=== PATIENT | female | born 1985 | race Caucasian/White ===

== ENCOUNTER → 2018-04-12 | Outpatient (CLI) | payer OTHER ==
[~2018-04-12] MED LIST: ACHD5005 PO; FERR256T PO; FEXO-14 PO; IBP600T1 PO; LRT10T PO; NITR-65 PO; PREN-117 PO
--- NOTE | 2018-04-12 19:27 | Diagnostic Imaging Report ---
EXAMINATION: Pelvic ultrasound. INDICATION: Ovulation monitoring. FINDINGS: There are no prior studies available for comparison. Undergoing ovulation monitoring for in vitro fertilization. There are multiple follicles associated with both ovaries. There are eight follicles on the right. These measure 0.6 x 0.7 cm, 0.7 x 0.6 cm, 0.7 x 0.5 cm, 0.7 x 0.5 cm, 0.6 x 0.6 cm, 0.6 x 0.8 cm, 0.5 x 0.4 cm, and 0.6 x 0.5 cm. There are six follicles on the left. These measure 0.7 x 0.6 cm, 0.8 x 0.7 cm, 0.5 x 0.4 cm, 0.6 x 0.6 cm, 0.6 x 0.5 cm, and 0.9 x 0.7 cm. There is good blood flow to each ovary and there is no sign of torsion. The uterus is nongravid and not enlarged measuring 6.2 x 5.0 x 4.5 cm. The endometrial lining measures 10 mm. There is no focal mass involving the uterus to suggest a fibroid. Both ovaries are identified. The right ovary measures 2.4 x 1.9 x 3.8 cm while the left ovary is estimated to be 4.3 x 1.5 x 1.5 cm. There is no pelvic mass or free fluid collection evident. IMPRESSION: 1. There is no acute pelvic abnormality noted. 2. There are multiple follicles involving both ovaries as described above. Dictated by: Dictated on workstation # [id number]
== END ==
LOC: RAD 13:49
PROVIDERS: ATTEND Obstetrics & Gynecology Reproductive Endocrinology
DX: Z31.83 Encounter for assisted reproductive fertility procedure cycle (principal); N83.02 Follicular cyst of left ovary; N83.01 Follicular cyst of right ovary
CPT/HCPCS: 36415; 76830; 76856; 82670

== ENCOUNTER 2018-04-25 09:00 | Outpatient (RCR) | payer OTHER ==
--- NOTE | 2018-04-21 14:36 | Diagnostic Imaging Report ---
ADDENDUM: UPDATED PROVIDER JENNIFER HAN INDICATION: Ovulation monitoring. FINDINGS: Uterus measures 7.5 x 5.4 x 5.1 cm. Endometrium is 16 mm in thickness. There is endometrial heterogeneity. No myometrial mass is seen. Right ovary measures 3.5 x 1.8 x 1.8 cm and the left ovary measures 5.2 x 1.8 x 1.8 cm. Both ovaries contain numerous follicles. Largest follicle on the right is 1.2 x 0.5 cm. All follicles on the left are less than 1 cm with exception of a 1.0 x 1.5 cm follicle. No other adnexal mass or free fluid is seen. IMPRESSION: Multiple bilateral ovarian follicles. There is also endometrial thickening of 16 mm. Dictated by: Dictated on workstation # [id number]
--- NOTE | 2018-04-25 08:53 | Diagnostic Imaging Report ---
ADDENDUM: UPDATED ORDERING PROVIDER JENNIFER HAN MD INDICATION: Encounter for assisted reproductive fertility. FINDINGS: The uterus measures 7.7 x 5.1 x 5.9 cm. The endometrium continues to be thickened, increased since the exam from 04/21/2018. Endometrium now measures approximate 21 mm in thickness at the fundus. There is heterogeneity to the endometrium. No myometrial mass is seen. Right ovary measures 2.2 x 1.7 x 3.6 cm and the left ovary measures 5.4 x 2.4 x 2.5 cm. Numerous follicles are again noted throughout both ovaries. At least 10 follicles in the right ovary and 8 follicles in the left ovary are seen. Largest located in left ovary measuring 2.1 x 1.8 cm. There is trace free fluid present. IMPRESSION: Pelvic ultrasound, as described. Dictated by: Dictated on workstation # [id number]
== END 2018-07-20 | disposition home or self-care (01) ==
LOC: RAD 09:00
PROVIDERS: ATTEND Obstetrics & Gynecology Reproductive Endocrinology
DX: Z31.83 Encounter for assisted reproductive fertility procedure cycle (principal); R93.89 Abnormal findings on diagnostic imaging of other specified body structures
CPT/HCPCS: 36415; 76830; 82670

== ENCOUNTER 2018-06-15 08:08 | Outpatient (RCR) | payer OTHER ==
--- NOTE | 2018-05-25 14:34 | Diagnostic Imaging Report ---
CLINICAL INDICATION: Patient with encounter for reproductive fertility procedure cycle. EXAMINATION: Transvaginal ultrasound of the pelvis. COMPARISON: Ultrasound of the pelvis dated 04/25/2018. FINDINGS: The uterus has normal echogenicity and configuration. The uterus measures 7.9 cm x 5.1 cm x 5.4 cm. Uterus is retroflexed. Endometrial stripe measures 1.0 cm and has decreased compared to the prior study measured at 2.1 cm. Again seen multiple follicular cysts throughout both ovaries. There are more follicular cysts within the right ovary than the left ovary. The largest cyst in the right ovary measures 7 mm x 6 mm. The largest cyst in the left ovary measures 10 mm x 6 mm. There is no significant free fluid. IMPRESSION: 1: Interval decrease in endometrial thickening which is now 1 mm. 2: Multiple bilateral ovarian follicular cysts with the largest measuring 10 mm x 6 mm within the left ovary region. Dictated by: Dictated on workstation # [id number]
--- NOTE | 2018-06-03 10:11 | Diagnostic Imaging Report ---
PROCEDURE: US Non-ob pelvis comp/trans. TECHNIQUE: Multiple realtime grayscale images were obtained of the pelvis in various projections endovaginally. Transabdominal imaging was also performed. INDICATION: Encounter for assisted reproductive fertility. FINDINGS: The uterus measures 7.2 x 5.0 x 4.5 cm. Endometrium is 7 mm in thickness. No myometrial mass is detected. Right ovary measures 2.7 x 2.2 x 3.2 cm and the left ovary measures 4.0 x 2.3 x 2.1 cm. Numerous follicles are identified involving bilateral ovaries. Left ovary contains approximately 10 follicles ranging in size from 4-7 mm. Right ovary contains 10-14 follicles as well ranging in size from approximately 4-7 mm. There is blood flow to both ovaries. No free fluid is seen. IMPRESSION: Multiple bilateral ovarian follicles, as described. Dictated on workstation # [id number]
--- NOTE | 2018-06-03 11:09 | Diagnostic Imaging Report ---
INDICATION: Encounter for cyst reproductive fertility. Transvaginal sonography was performed. FINDINGS: The uterus measures 7.2 x 5.0 x 4.5 cm. Endometrium is 7 mm in thickness. No myometrial mass is seen. The right ovary measures 2.7 x 2.2 x 3.2 cm and the left ovary measures 4.0 x 2.3 x 2.1 cm. Both ovaries demonstrate blood flow. There are numerous follicles involving bilateral ovaries. There are approximately 10 follicles involving the left ovary ranging in size from 4-7 mm. There are 10-14 follicles involving the right ovary ranging in size from 4-7 mm. No adnexal mass or free fluid is seen. IMPRESSION: Multiple bilateral ovarian follicles, as described. Dictated by: Dictated on workstation # [id number]
--- NOTE | 2018-06-13 11:54 | Diagnostic Imaging Report ---
PROCEDURE: US Non-ob pelvis comp/trans. TECHNIQUE: Multiple realtime grayscale images were obtained of the pelvis in various projections endovaginally. Transabdominal imaging was also performed. INDICATION: Evaluate endometrial lining and follicle measurements. FINDINGS: The uterus measures 6.6 x 5.0 x 3.8 cm. The endometrium is 12 mm in thickness. No myometrial mass is seen. The right ovary measures 3.5 x 1.6 x 2.4 cm and the left ovary measures 3.5 x 1.6 x 1.4 cm. The right ovary demonstrates approximately 11 follicles. The largest follicle measures approximately 7 mm x 8 mm. The majority of the follicles are approximately 3 to 6 mm. The left ovary contains approximately 13 follicles ranging in size from 6 to 8 mm. A small amount of free fluid in the cul-de-sac is noted. IMPRESSION: Bilateral ovarian follicles, as described. Dictated by: Dictated on workstation # [id number]
--- NOTE | 2018-06-15 10:13 | Diagnostic Imaging Report ---
INDICATION: Evaluate endometrial lining thickness and ovarian follicle size. FINDINGS: Uterus measures 6.7 x 5.5 x 4.2 cm. The endometrium is 12 mm in thickness. No myometrial mass is seen. The right ovary measures 3.7 x 1.8 x 2.5 cm and the left ovary measures 5.6 x 1.6 x 1.9 cm. Numerous bilateral ovarian follicles are present. There appeared to be approximately 15 follicles involving the right ovary and 11 follicles involving the left ovary. Follicles range from approximately 5-12 mm on the right and 4-12 mm on the left. There is small amount of free fluid adjacent to the left ovary. There is blood flow to both ovaries. IMPRESSION: Multiple bilateral ovarian follicles. Trace free fluid adjacent to the left ovary is noted. Dictated by: Dictated on workstation # [id number]
== END 2018-08-23 | disposition home or self-care (01) ==
LOC: RAD 08:08
PROVIDERS: ATTEND Obstetrics & Gynecology Reproductive Endocrinology
DX: Z31.83 Encounter for assisted reproductive fertility procedure cycle (principal); N83.02 Follicular cyst of left ovary; N83.01 Follicular cyst of right ovary; R93.89 Abnormal findings on diagnostic imaging of other specified body structures
CPT/HCPCS: 36415; 76830; 76856; 82670; 84144

== ENCOUNTER 2018-07-06 08:05 | Outpatient (RCR) | payer OTHER | END 2018-10-02 | disposition home or self-care (01) | LOC: LAB 08:05 | PROVIDERS: ATTEND Obstetrics & Gynecology Reproductive Endocrinology | DX: Z31.83 Encounter for assisted reproductive fertility procedure cycle (principal) | CPT/HCPCS: 36415; 82670; 84144; 84702 ==

== ENCOUNTER → 2018-07-19 | Outpatient (CLI) | payer OTHER ==
--- NOTE | 2018-07-19 09:02 | Diagnostic Imaging Report ---
PROCEDURE: US OB SINGLE FETUS <14 WKS. INDICATION: Encounter for test. Embryo transferred on 06/21/2018 TECHNIQUE: Multiple real-time grayscale images were obtained of the gravid uterus. CORRELATION STUDY: None FINDINGS: Uterus measure partly 9.6 x 7.4 x 6.5 cm. There is present intrauterine fluid collection compatible with a gestational sac. Configuration appearing unremarkable. No abnormal perigestational fluid collections. A pole is present measuring approximately 0.97 cm for sonographic estimated age of 7 weeks 1 day. Yolk sac is present. heart rate: 130 beats per minute Imaging maternal adnexa demonstrates nonvisualization of the ovaries, obscured by bowel gas. IMPRESSION: 1. Findings consistent with early viable intrauterine , sonographic estimated age of 7 weeks 1 day. Sonographic estimated date of delivery 03/06/2019. Dictated by: Dictated on workstation # [id number]
== END ==
LOC: RAD 07:53
PROVIDERS: ATTEND Obstetrics & Gynecology Reproductive Endocrinology
DX: Z34.91 Encounter for supervision of normal pregnancy, unspecified, first trimester (principal); Z3A.08 8 weeks gestation of pregnancy
CPT/HCPCS: 36415; 76801; 82670; 84144

== ENCOUNTER → 2018-08-02 | Outpatient (CLI) | payer OTHER ==
--- NOTE | 2018-08-02 10:43 | Diagnostic Imaging Report ---
PROCEDURE: US OB SINGLE FETUS <14 WKS. TECHNIQUE: Multiple real-time grayscale images were obtained over the gravid uterus in various projections. INDICATION: Size and dates. Findings: There is a single living intrauterine . Oxbow-rump length is 2.34 cm. This correlates with gestational age of 9 weeks one day. Heart rate is 179 beats per minute and regular. There is normal volume of amniotic fluid. Placenta appears to be anterior. Neither ovary was visualized due to bowel gas. IMPRESSION: Single living intrauterine with sonographically estimated gestational age of 9 weeks one day and estimated date of confinement of March 06, 2019. Dictated by: Dictated on workstation # [id number]
== END ==
LOC: RAD 09:38
PROVIDERS: ATTEND Obstetrics & Gynecology Reproductive Endocrinology
DX: Z34.91 Encounter for supervision of normal pregnancy, unspecified, first trimester (principal); Z3A.09 9 weeks gestation of pregnancy
CPT/HCPCS: 36415; 76801; 82670; 84144

== ENCOUNTER 2018-08-15 02:16 | Observation (INO) | payer OTHER ==
[~2018-08-15] VITALS: Ht 157.5 cm; Wt 47.6 kg
--- OUTSIDE RECORDS SUMMARY | 2018-08-15 02:20 | XMS REPORT ---
Author Author Migration, Doctor Organization [facility] Address Unknown Phone Unavailable Care Team Providers Care Production Control Supervisor Name Role Phone Migration, Doctor Unavailable Unavailable PROBLEMS Type Condition ICD9-CM Code MYL63-HW Code Onset Dates Condition Status SNOMED Code Problem Unspecified breast screening V76.10 Active 988673772 Problem Screening for malignant neoplasm of the cervix V76.2 Active 383928313 Problem General counseling for initiation of other contraceptive measures V25.02 Active 792794365117887 Problem Screening examination for venereal disease V74.5 Active 651859354 Problem 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 Active 039425546 Problem state, incidental V22.2 Active 69763390 Problem Papanicolaou smear of cervix with low grade squamous intraepithelial lesion (LGSIL) 795.03 Active 612881550 Problem Pupillary abnormalities 364.75 Active 940348748 Problem Other general medical examination for administrative purposes V70.3 Active 89174028 Problem Candidiasis of vulva and vagina 112.1 Active 70816338 Problem Special screening examination, human papillomavirus [HPV] V73.81 Active 363435002 Problem Dysphagia, unspecified 787.20 Active 48902628 Problem Headache 784.0 Active 27202359 Problem Acute pharyngitis 462 Active 338161119 Problem Unspecified otalgia 388.70 Active 60441335 ALLERGIES No Information ENCOUNTERS Encounter Location Date Diagnosis [facility] [id number] [place] [address] Jan, Acute nasopharyngitis J00 [facility] [id number] [place] [address] Mar, Bronchitis J40 [facility] [id number] [place] [address] 14 Aug, 2014 [facility] [id number] [place] [address] 13 Aug, 2014 [facility] [address] [id number] [place] [address] 17 Jul, 2013 [facility] [place] [facility] [address] [id number] [place] [address] 17 Jul, 2013 [facility] [place] [facility] [address] [id number] [place] [address] 13 Jul, 2013 [facility] [place] [facility] [address] [id number] [place] [address] 13 Jul, 2013 [facility] [place] [facility] [address] [id number] [place] [address] 12 Jul, 2013 [facility] [place] [facility] [address] [id number] [place] [address] 12 Jul, 2013 [facility] [place] [facility] [address] [id number] [place] [address] 11 Jul, 2013 [facility] [place] [facility] [address] [id number] [place] [address] 11 Jul, 2013 [facility] [place] [facility] [address] [id number] [place] [address] 10 Jul, 2013 [facility] [place] [facility] [address] [id number] [place] [address] 08 Jul, 2013 [facility] [place] [facility] [address] [id number] [place] [address] Jul, [facility] [place] [facility] [address] [id number] [place] [address] 04 Jul, 2013 [facility] [place] [facility] [address] [id number] [place] [address] Jul, [facility] [place] [facility] [address] [id number] [place] [address] 18 Jun, 2013 [facility] [place] [facility] [address] [id number] [place] [address] 18 Jun, 2013 [facility] [place] [facility] [address] [id number] [place] [address] Jun, 2013 [facility] [address] [id number] [place] [address] Jun, [facility] [place] [facility] [address] [id number] [place] [address] Jun, [facility] [address] [id number] [place] [address] Nov, [facility] [place] [facility] [address] [id number] [place] [address] Nov, [facility] [address] [id number] [place] [address] Jun, [facility] [place] [facility] [address] [id number] [place] [address] Jun, [facility] [address] [id number] [place] [address] Jun, [facility] [address] [id number] [place] [address] Jun, [facility] [address] [id number] [place] [address] Jun, [facility] [address] [id number] [place] [address] May, [facility] [place] [facility] [address] [id number] [place] [address] May, [facility] [place] [facility] [address] [id number] [place] [address] May, [facility] [place] [facility] [address] [id number] [place] [address] May, [facility] [place] [facility] [address] [id number] [place] [address] May, [facility] [place] [facility] [address] [id number] [place] [address] Apr, [facility] [place] [facility] [address] [id number] [place] [address] Apr, [facility] [place] [facility] [address] [id number] [place] [address] Apr, [facility] [place] [facility] [address] [id number] [place] [address] Apr, [facility] [place] [facility] [address] [id number] [place] [address] Apr, [facility] [place] [facility] [address] [id number] [place] [address] Mar, [facility] [place] [facility] [address] [id number] [place] [address] 65[address] Mar, [facility] [place] [facility] [address] [id number] [place] [address] Oct, [facility] [place] [facility] [address] [id number] [place] [address] September, [facility] [place] [facility] [address] [id number] [place] [address] 17 Aug, 2011 [facility] [place] [facility] [address] [id number] [place] [address] 16 Aug, 2011 [facility] [place] [facility] [address] [id number] [place] [address] Aug, [facility] [place] [facility] [address] [id number], [place] [address] 11 Aug, 2011 [facility] [place] [facility] [address] [id number] [place] [address] 9[address] 10 Aug, 2011 [facility] [place] [facility] [address] [id number], [place] [address] 07 Jun, 2011 [facility] [place] [facility] [address] [id number], [place] [address] May, [facility] [place] [facility] [address] [id number], [place] [address] Apr, [facility] [address] [facility] [id number] [place] [address] Feb, IMMUNIZATIONS No Known Immunizations SOCIAL HISTORY Never Assessed REASON FOR VISIT EMR-[facility] [place] PLAN OF CARE VITAL SIGNS MEDICATIONS No Known Medications RESULTS Name Result Date Reference Range PAP SMEAR 2013-07-31 PROTOTYPE FABRICATOR CYTOLOGY REPORT FOOTNOTE PAP RESULT PROCEDURES No Known procedures INSTRUCTIONS MEDICATIONS ADMINISTERED No Known Medications MEDICAL (GENERAL) HISTORY Type Description Date Surgical History No know Surgical history
--- OUTSIDE RECORDS SUMMARY | 2018-08-15 02:21 | XMS REPORT ---
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 Active 169228631 Problem Papanicolaou smear of cervix with low grade squamous intraepithelial lesion (LGSIL) 795.03 Active 744755420 Problem state, incidental V22.2 Active 78305534 Problem Candidiasis of vulva and vagina 112.1 Active 65965220 Problem Pupillary abnormalities 364.75 Active 649707507 Problem Headache 784.0 Active 00910209 Problem Dysphagia, unspecified 787.20 Active 67307558 Problem Unspecified otalgia 388.70 Active 86761965 Problem Acute pharyngitis 462 Active 223341142 Problem Screening examination for venereal disease V74.5 Active 860822886 Problem General counseling for initiation of other contraceptive measures V25.02 Active 220863390344366 Problem Screening for malignant neoplasm of the cervix V76.2 Active 405745314 Problem Special screening examination, human papillomavirus [HPV] V73.81 Active 541360967 Problem Unspecified breast screening V76.10 Active 983861104 Problem Other general medical examination for administrative purposes V70.3 Active 09086896 ALLERGIES Substance Reaction Event Type Date Status Latex Unknown Non Drug Allergy Jan, Active ENCOUNTERS Encounter Location Date Diagnosis [facility] [address] [address] Jan, Acute nasopharyngitis J00 [facility] [id number] [address] Mar, Bronchitis J40 [facility] [address] [address] 14 Aug, 2014 [facility] [place] [facility] [address] [id number] [place] [address] 13 Aug, 2014 [facility] [place] [facility] [address] [id number] [place] [address]- [address] 17 Jul, 2013 [facility] [place] [facility] [address] [id number] [place] [address]- 244[address] 17 Jul, 2013 [facility] [place] [facility] [address] [id number] [place] [address]- 3[address] 13 Jul, 2013 [facility] [place] [facility] [address] [id number] [place] [address]- 5564 13 Jul, 2013 [facility] [place] [facility] [address] [id number] [place] [address]- 0765 12 Jul, 2013 [facility] [place] [facility] [address] [id number] [place] [address]- 0869 12 Jul, 2013 [facility] [place] [facility] [address] [id number] [place] [address]- 3144 11 Jul, 2013 [facility] [place] [facility] [address] [id number] [place] [address]- 2885 11 Jul, 2013 [facility] [place] [facility] [address] [id number] [place] [address]- 5893 10 Jul, 2013 [facility] [place] [facility] [address] [id number] [place] [address]- 69[address] 08 Jul, 2013 [facility] [place] [facility] [address] [id number] [place] [address]- 7261 07 Jul, 2013 [facility] [place] [facility] [address] [id number] [place] [address]- 9456 04 Jul, 2013 [facility] [place] [facility] [address] [id number] [place] [address]- 8372 04 Jul, 2013 [facility] [place] [facility] [address] [id number] [place] [address]- 8034 18 Jun, 2013 [facility] [place] [facility] [address] [id number] [place] [address]- 8831 18 Jun, 2013 [facility] [place] [facility] [address] [id number] [place] [address] 2546 Jun, 2013 [facility] [place] [facility] [address] [id number] [place] [address] 2546 Jun, 2013 [facility] [place] [facility] [address] [id number] [place] [address] 2546 Jun, 2013 [facility] [place] [facility] [address] [id number] [place] [address]- [address] Nov, [facility] [place] [facility] [address] [id number] [place] [address]- [address] Nov, [facility] [place] [facility] [address] [id number] [place] [address]- 0228 Jun, [facility] [place] [facility] [address] [id number] [place] [address]- [address] Jun, 2012 [facility] [place] [facility] [address] [id number] [place] [address]- 6267 Jun, [facility] [place] [facility] [address] [id number] [place] [address]- 0[address] Jun, [facility] [place] [facility] [address] [id number] [place] [address]- [address] Jun, [facility] [place] [facility] [address] [id number] [place] [address]- [address] May, [facility] [place] [facility] [address] [id number] [place] [address]- [address] May, [facility] [place] [facility] [address] [id number] [place] [address]- 39[address] May, [facility] [place] [facility] [address] [id number] [place] [address]- [address] May, [facility] [place] [facility] [address] [id number] [place] [address]- [address] May, [facility] [address] [id number] [place] [address]- [address] Apr, [facility] [place] [facility] [address] [id number] [place] [address] Apr, [facility] [address] [id number] [place] [address]- 1859 Apr, [facility] [place] [facility] [address] [id number] [place] [address]- [address] Apr, [facility] [place] [facility] [address] [id number] [place] [address] Apr, [facility] [place] [facility] [address] [id number] [place] [address]- [address] Mar, [facility] [address] [id number] [place] [address] Mar, [facility] [place] [facility] [address] [id number] [place] [address]- [address] Oct, [facility] [place] [facility] [address] [id number] [place] [address]- [address] September, [facility] [place] [facility] [address] [id number] [place] [address]- [address] 17 Aug, 2011 [facility] [place] [facility] [address] [id number] [place] [address]- 39[address] 16 Aug, 2011 [facility] [place] [facility] [address] [id number] [place] [address]- 275[address] 12 Aug, 2011 [facility] [place] [facility] [address] [id number] [place] [address]- [address] Aug, [facility] [place] [facility] [address] [id number] [place] [address]- 37[address] 10 Aug, 2011 [facility] [place] [facility] [address] [id number] [place] 07 Jun, 2011 [facility] [address] [facility] [id number] [place] [address] May, [facility] [address] [facility] [id number], [place] [address] Apr, [facility] [address] [facility] [id number], [place] [address] Feb, IMMUNIZATIONS No Known Immunizations SOCIAL HISTORY Never Assessed REASON FOR VISIT cough, congestion, headache, runny et stuffy nose. been sick for 2 weeks. [email or web address] PLAN OF CARE Activity Details Follow Up prn Reason: VITAL SIGNS Height 62 in 2018-02-10 Weight 107.4 lbs 2018-02-10 Temperature 98.0 degrees Fahrenheit 2018-02-10 Heart Rate 74 bpm 2018-02-10 Respiratory Rate 2018-02-10 BMI 19.64 kg/m2 2018-02-10 Blood pressure systolic 106 mmHg 2018-02-10 Blood pressure diastolic 72 mmHg 2018-02-10 MEDICATIONS Medication Instructions Dosage Frequency Start Date End Date Duration Status Albuterol 90 mcg/actuation 2 puffs by Inhalation route 4 times per dayPRN Mar, Active Symbicort 160 mcg-4.5 mcg/inh 2 puffs by Inhalation route 2 times per day Mar, Active Ibuprofen 200 MG Orally Three times a day 1 tablet with food or milk as needed 8h Active Cetirizine HCl 10 MG Orally Once a day 1 tablet 24h Active Claritin 10 MG Orally Once a day 1 tablet 24h Active RESULTS No Results PROCEDURES No Known procedures INSTRUCTIONS MEDICATIONS ADMINISTERED No Known Medications MEDICAL (GENERAL) HISTORY Type Description Date Surgical History No know Surgical history
--- OUTSIDE RECORDS SUMMARY | 2018-08-15 02:21 | XMS REPORT | Continuity of Care Document ---
Author Author [facility] Address Unknown Phone Unavailable Allergies Active Description Code Type Severity Reaction Onset Reported/Identified Relationship to Patient Clinical Status Yes latex [id number] Drug Allergy Unknown N/A 01/27/2007 Yes latex Drug Allergy 04/27/2012 Yes latex Drug Allergy N/A N/A 04/27/2012 Medications There is no data. Problems Date Dx Coded Attending Type Code Diagnosis Diagnosed By 12/24/2010 JOSSELYN RIVERA APRN 493.00 ASTHMA EXTRINSIC 12/24/2010 JAY MCCORMICK DO 493.00 ASTHMA EXTRINSIC 12/24/2010 493.00 ASTHMA EXTRINSIC 12/24/2010 493.00 ASTHMA EXTRINSIC 12/24/2010 DELGADO RILEY APRN 493.00 ASTHMA EXTRINSIC 12/24/2010 JAY MCCORMICK DO 493.00 ASTHMA EXTRINSIC 12/24/2010 DELGADO RILEY APRN A 493.00 ASTHMA EXTRINSIC 12/24/2010 493.00 ASTHMA EXTRINSIC 03/23/2011 JOSSELYN RIVERA APRN 461.9 ACUTE SINUSITIS UNSPECIFIED 03/23/2011 JOSSELYN RIVERA APRN V04.81 FLU DX (3 YRS AND ABOVE, IM) 03/23/2011 JAY MCCORMICK DO 461.9 ACUTE SINUSITIS UNSPECIFIED 03/23/2011 JAY MCCORMICK DO V04.81 FLU DX (3 YRS AND ABOVE, IM) 03/23/2011 461.9 ACUTE SINUSITIS UNSPECIFIED 03/23/2011 V04.81 FLU DX (3 YRS AND ABOVE, IM) 03/23/2011 461.9 ACUTE SINUSITIS UNSPECIFIED 03/23/2011 V04.81 FLU DX (3 YRS AND ABOVE, IM) 03/23/2011 DELGADO RILEY APRN 461.9 ACUTE SINUSITIS UNSPECIFIED 03/23/2011 DELGADO RILEY APRN V04.81 FLU DX (3 YRS AND ABOVE, IM) 03/23/2011 JACE JAY PRADO K 461.9 ACUTE SINUSITIS UNSPECIFIED 03/23/2011 JACE PRADOJAY K V04.81 FLU DX (3 YRS AND ABOVE, IM) 03/23/2011 ROSEMARY STRUCTURER, DELGADO A 461.9 ACUTE SINUSITIS UNSPECIFIED 03/23/2011 ROSEMARY STRUCTURER, DELGADO A V04.81 FLU DX (3 YRS AND ABOVE, IM) 03/23/2011 461.9 ACUTE SINUSITIS UNSPECIFIED 03/23/2011 V04.81 FLU DX (3 YRS AND ABOVE, IM) 05/14/2011 NICOLE STRUCTURER, JOSSELYN S V05.3 HEP B (ADULT) DX 05/14/2011 NICOLE STRUCTURER, JOSSELYN S V06.1 TDAP DX 05/14/2011 NICOLERAUL BOWENRicardo JOSSELYN S V06.4 MMR DX 05/14/2011 NICOLE BOWENN, JOSSELYN S V74.1 TB SCREENING 05/14/2011 MCCORMICK JAY PRADO K V05.3 HEP B (ADULT) DX 05/14/2011 MCCORMICK JAY PRADO K V06.1 TDAP DX 05/14/2011 MCCORMICK JAY PRADO K V06.4 MMR DX 05/14/2011 MCCORMICK JYA PRADO K V74.1 TB SCREENING 05/14/2011 V05.3 HEP B (ADULT) DX 05/14/2011 V06.1 TDAP DX 05/14/2011 V06.4 MMR DX 05/14/2011 V74.1 TB SCREENING 05/14/2011 V05.3 HEP B (ADULT) DX 05/14/2011 V06.1 TDAP DX 05/14/2011 V06.4 MMR DX 05/14/2011 V74.1 TB SCREENING 05/14/2011 ROSEMARY STRUCTURER, DELGADO A V05.3 HEP B (ADULT) DX 05/14/2011 ROSEMARY STRUCTURER, DELGADO A V06.1 TDAP DX 05/14/2011 ROSEMARY STRUCTURER, DELGADO A V06.4 MMR DX 05/14/2011 ROSEMARY STRUCTURER, DELGADO A V74.1 TB SCREENING 05/14/2011 MCCORMICK JAY PRADO K V05.3 HEP B (ADULT) DX 05/14/2011 MCCORMICK DOJAY V06.1 TDAP DX 05/14/2011 JACE PRADOJAY V06.4 MMR DX 05/14/2011 JACE PRADOJAY V74.1 TB SCREENING 05/14/2011 DELGADO RILEY APRN A V05.3 HEP B (ADULT) DX 05/14/2011 DELGADO RILEY APRN A V06.1 TDAP DX 05/14/2011 DEBORAH RILEY APRNIDI A V06.4 MMR DX 05/14/2011 DEBORAH RILEY APRNIDI A V74.1 TB SCREENING 05/14/2011 V05.3 HEP B (ADULT) DX 05/14/2011 V06.1 TDAP DX 05/14/2011 V06.4 MMR DX 05/14/2011 V74.1 TB SCREENING 06/03/2011 JOSSELYN RIVERA APRN V70.3 SPORTS PHYSICAL 06/03/2011 JAY MCCORMICK DO V70.3 SPORTS PHYSICAL 06/03/2011 V70.3 SPORTS PHYSICAL 06/03/2011 V70.3 SPORTS PHYSICAL 06/03/2011 ROSEMARY BOWENDELGADO Silva A V70.3 SPORTS PHYSICAL 06/03/2011 MCCORMICK JAY PRADO V70.3 SPORTS PHYSICAL 06/03/2011 DEBORAH RILEY APRNIDI A V70.3 SPORTS PHYSICAL 06/03/2011 V70.3 SPORTS PHYSICAL 07/07/2011 Ot 847.0 07/07/2011 Ot 847.1 07/07/2011 Ot 959.09 07/07/2011 Ot E000.8 07/07/2011 Ot E816.1 09/01/2011 JOSSELYN RIVERA APRN 787.20 DYSPHAGIA, UNSPECIFIED 09/01/2011 JAY MCCORMICK DO 787.20 DYSPHAGIA, UNSPECIFIED 09/01/2011 787.20 DYSPHAGIA, UNSPECIFIED 09/01/2011 787.20 DYSPHAGIA, UNSPECIFIED 09/01/2011 ROSEMARYDELGADO DOMINGUEZ APRN A 787.20 DYSPHAGIA, UNSPECIFIED 09/01/2011 JAY MCCORMICK DO 787.20 DYSPHAGIA, UNSPECIFIED 09/01/2011 ROSEMARYDELGADO DOMINGUEZ APRN A 787.20 DYSPHAGIA, UNSPECIFIED 09/01/2011 787.20 DYSPHAGIA, UNSPECIFIED 10/16/2011 JOSSELYN RIVERA APRN S 462 PHARYNGITIS ACUTE 10/16/2011 JAY MCCORMICK DO 462 PHARYNGITIS ACUTE 10/16/2011 462 PHARYNGITIS ACUTE 10/16/2011 462 PHARYNGITIS ACUTE 10/16/2011 DELGADO RILEY APRN A 462 PHARYNGITIS ACUTE 10/16/2011 JAY MCCORMICK DO 462 PHARYNGITIS ACUTE 10/16/2011 DELGADO RILEY APRN A 462 PHARYNGITIS ACUTE 10/16/2011 462 PHARYNGITIS ACUTE 04/27/2012 JOSSELYN RIVERA APRN S V25.02 CONTRACEPTION - ANY METHOD 04/27/2012 JOSSELYN RIVERA APRN S V76.10 BREAST CANCER SCREENING 04/27/2012 JOSSELYN RIVERA APRN S V76.2 CERVICAL CANCER SCREENING (PAP SMEAR) 04/27/2012 JAY MCCORMICK DO V25.02 CONTRACEPTION - ANY METHOD 04/27/2012 JAY MCCOMRICK DO V76.10 BREAST CANCER SCREENING 04/27/2012 JAY MCCORMICK DO V76.2 CERVICAL CANCER SCREENING (PAP SMEAR) 04/27/2012 V25.02 CONTRACEPTION - ANY METHOD 04/27/2012 V76.10 BREAST CANCER SCREENING 04/27/2012 V76.2 CERVICAL CANCER SCREENING (PAP SMEAR) 04/27/2012 V25.02 CONTRACEPTION - ANY METHOD 04/27/2012 V76.10 BREAST CANCER SCREENING 04/27/2012 V76.2 CERVICAL CANCER SCREENING (PAP SMEAR) 04/27/2012 DELGADO RILEY APRN A V25.02 CONTRACEPTION - ANY METHOD 04/27/2012 DELGDAO RILEY APRN A V76.10 BREAST CANCER SCREENING 04/27/2012 DELGADO RILEY APRN A V76.2 CERVICAL CANCER SCREENING (PAP SMEAR) 04/27/2012 JAY MCCORMICK DO V25.02 CONTRACEPTION - ANY METHOD 04/27/2012 JAY MCCORMICK DO V76.10 BREAST CANCER SCREENING 04/27/2012 JAY MCCORMICK DO V76.2 CERVICAL CANCER SCREENING (PAP SMEAR) 04/27/2012 DELGADO RILEY APRN A V25.02 CONTRACEPTION - ANY METHOD 04/27/2012 ROSEMARY STRUCTURER, DELGADO A V76.10 BREAST CANCER SCREENING 04/27/2012 ROSEMARYDELGADO Silva APRN V76.2 CERVICAL CANCER SCREENING (PAP SMEAR) 06/15/2012 JAY MCCORMICK DO 795.03 ABNORMAL PAP - LGSIL 06/15/2012 795.03 ABNORMAL PAP - LGSIL 06/15/2012 795.03 ABNORMAL PAP - LGSIL 06/15/2012 ROSEMARYDELGADO Silva APRN A 795.03 ABNORMAL PAP - LGSIL 06/15/2012 JAY MCCORMICK DO 795.03 ABNORMAL PAP - LGSIL 06/15/2012 ROSEMARYRicardo LATHAM DELGADO A 795.03 ABNORMAL PAP - LGSIL 07/07/2012 V04.89 GARDASIL (HPV ) DX 07/07/2012 ROSEMARYDELGADO Silva APRN A V04.89 GARDASIL (HPV) DX 07/07/2012 JAY MCCORMICK DO V04.89 GARDASIL (HPV) DX 07/07/2012 ROSEMARYDELGADO Silva APRN V04.89 GARDASIL (HPV) DX 11/25/2012 ROSEMARYDELGADO Silva APRN A 364.75 PUPIL ABNORMALITY 11/25/2012 ROSEMARYALBERTO LATHAM, DELGADO A 388.70 OTALGIA 11/25/2012 ROSEMARY APRN, DELGADO A 784.0 HEADACHE 11/25/2012 JAY MCCORMICK DO 364.75 PUPIL ABNORMALITY 11/25/2012 JAY MCCORMICK DO 388.70 OTALGIA 11/25/2012 JAY MCCORMICK DO 784.0 HEADACHE 11/25/2012 ROSEMARY APRN, DELGADO A 364.75 PUPIL ABNORMALITY 11/25/2012 ROSEMARY STRUCTURER, DELGADO A 388.70 OTALGIA 11/25/2012 ROSEMARY APRN, DELGADO A 784.0 HEADACHE 12/13/2012 DELGADO RILEY APRN A 112.1 CANDIDIASIS VAGINAL 12/13/2012 JAY MCCORMICK DO 112.1 CANDIDIASIS VAGINAL 12/13/2012 DELGADO RILEY APRN A 112.1 CANDIDIASIS VAGINAL 06/07/2013 CARLOS PENDLETON DO Ot 599.0 URIN TRACT INFECTION NOS 06/07/2013 CARLOS PENDLETON DO Ot 646.63 INFECTION-ANTEPARTUM 06/07/2013 CARLOS PENDLETON DO Ot 789.09 ABDOMINAL PAIN, OTHER SPECIFIED SITE 07/25/2013 JAY MCCORMICK DO V22.2 INCIDENTAL 07/25/2013 JAY MCCORMICK DO V73.81 HPV SCREENING 07/25/2013 JAY MCCORMICK DO V74.5 STD SCREEN 07/25/2013 ROSEMARY LATHAM, DELGADO A V22.2 INCIDENTAL 07/25/2013 ROSEMARY APRN, DELGADO A V73.81 HPV SCREENING 07/25/2013 ROSEMARY APRN, DELGADO A V74.5 STD SCREEN 10/23/2013 ABEBE FULLER DO Ot 285.1 AC POSTHEMORRHAG ANEMIA 10/23/2013 ABEBE FULLER DO C Ot 285.9 ANEMIA NOS 10/23/2013 CHANDANA FULLER DOA C Ot 648.21 ANEMIA-DELIVERED 10/23/2013 FULLER DOABEBE C Ot 648.22 ANEMIA-DELIVERED W P/P 10/23/2013 FULLER DOCHANDANAA C Ot 654.81 ABNORMAL VULVA-DELIVERED 10/23/2013 CHANDANA FULLER DOA C Ot V27.0 DELIVER-SINGLE LIVEBORN 07/10/2015 ALINA DOCHANDANAA C Ot V23.89 07/10/2015 FULLER DO ABEBE C Ot V72.63 07/10/2015 FULLER DO ABEBE C Ot V72.84 07/10/2015 FULLER DO ABEBE C Ot V74.8 07/10/2015 Ot 787.20 07/10/2015 ELIZABETH ZAMAN PA-C Ot 784.0 07/10/2015 FULLER DO ABEBE C Ot V23.89 07/10/2015 FULLER DO, ABEBE C Ot V72.63 07/10/2015 FULLER DO, ABEBE C Ot V72.84 07/10/2015 FULLER DO, ABEBE C Ot V74.8 07/10/2015 Ot 787.20 07/10/2015 ELIZABETH ZAMAN PA-C Ot 784.0 07/10/2015 FULLER DO ABEBE C Ot V23.89 07/10/2015 FULLER DO, ABEBE C Ot V72.63 07/10/2015 FULLER DO, ABEBE C Ot V72.84 07/10/2015 FULLER DO, ABEBE C Ot V74.8 07/15/2015 Ot 787.20 07/15/2015 ELIZABETH ZAMAN-C Ot 784.0 07/15/2015 FULLER DO, ABEBE C Ot V23.89 07/15/2015 FULLER DO, ABEBE C Ot V72.63 07/15/2015 FULLER DO, ABEBE C Ot V72.84 07/15/2015 FULLER DO, ABEBE C Ot V74.8 07/15/2015 SOLEDAD KNIGHT DO S Ot R10.9 04/12/2018 ELIZABETH ZAMAN-C Ot 784.0 HEADACHE 04/12/2018 FULLER DO, ABEBE C Ot V23.89 SUPRV OTH HIGH-RISK 04/12/2018 FULLER DO, ABEBE C Ot V72.63 PRE-PROCEDURAL LABORATORY EXAMINATION 04/12/2018 FULLER DO, ABEBE C Ot V72.84 EXAM PRE-OPERATIVE NOS 04/12/2018 ALINA DO, ABEBE C Ot V74.8 SCREEN-BACTERIAL DIS NEC 04/12/2018 SOLEDAD KNIGHT DO S Ot R10.9 UNSPECIFIED ABDOMINAL PAIN 04/13/2018 EMELY MCRAE, JENNIFER Jackson Ot N83.01 FOLLICULAR CYST OF RIGHT OVARY 04/13/2018 EMELY MCRAE, JENNIFER Jackson Ot N83.02 FOLLICULAR CYST OF LEFT OVARY 04/13/2018 EMELY MCRAE, JENNIFER Jackson Ot Z31.83 ENCOUNTER FOR ASSISTED REPRODCTV FERTILI 04/13/2018 JENNIFER HAN MD Ot N83.01 FOLLICULAR CYST OF RIGHT OVARY 04/13/2018 JENNIFER HAN MD Ot N83.02 FOLLICULAR CYST OF LEFT OVARY 04/13/2018 JENNIFER HAN MD Ot Z31.83 ENCOUNTER FOR ASSISTED REPRODCTV FERTILI 04/13/2018 ELIZABETH ZAMAN-C Ot 784.0 HEADACHE 04/13/2018 FULLER DO, ABEBE C Ot V23.89 SUPRV OTH HIGH-RISK 04/13/2018 FULLER DO, ABEBE C Ot V72.63 PRE-PROCEDURAL LABORATORY EXAMINATION 04/13/2018 ABEBE FULLER DO Ot V72.84 EXAM PRE-OPERATIVE NOS 04/13/2018 ABEBE FULLER DO Ot V74.8 SCREEN-BACTERIAL DIS NEC 04/13/2018 SOLEDAD KNIGHT DO Ot R10.9 UNSPECIFIED ABDOMINAL PAIN 04/13/2018 EMELY MCRAE, JENNIFER Jackson Ot N83.01 FOLLICULAR CYST OF RIGHT OVARY 04/13/2018 JENNIFER HAN MD Ot N83.02 FOLLICULAR CYST OF LEFT OVARY 04/13/2018 JENNIFER HAN MD Ot Z31.83 ENCOUNTER FOR ASSISTED REPRODCTV FERTILI 04/25/2018 JENNIFER HAN MD Ot R93.89 ABNORMAL FINDINGS ON DX IMAGING OF OTH B 04/25/2018 JENNIFER HAN MD Ot Z31.83 ENCOUNTER FOR ASSISTED REPRODCTV FERTILI 04/29/2018 JENNIFER HAN MD Ot R93.89 ABNORMAL FINDINGS ON DX IMAGING OF OTH B 04/29/2018 JENNIFER HAN MD Ot Z31.83 ENCOUNTER FOR ASSISTED REPRODCTV FERTILI 05/03/2018 JENNIFER HAN MD Ot R93.89 ABNORMAL FINDINGS ON DX IMAGING OF OTH B 05/03/2018 JENNIFER HAN MD Ot Z31.83 ENCOUNTER FOR ASSISTED REPRODCTV FERTILI 05/23/2018 JENNIFER HAN MD Ot R93.89 ABNORMAL FINDINGS ON DX IMAGING OF OTH B 05/23/2018 JENNIFER HAN MD Ot Z31.83 ENCOUNTER FOR ASSISTED REPRODCTV FERTILI 05/23/2018 JENNIFER HAN MD Ot R93.89 ABNORMAL FINDINGS ON DX IMAGING OF OTH B 05/23/2018 JENNIFER HAN MD Ot Z31.83 ENCOUNTER FOR ASSISTED REPRODCTV FERTILI 05/23/2018 JENNIFER HAN MD Ot R93.89 ABNORMAL FINDINGS ON DX IMAGING OF OTH B 05/23/2018 JENNIFER HAN MD Ot Z31.83 ENCOUNTER FOR ASSISTED REPRODCTV FERTILI 05/25/2018 ABEBE FULLER DO Ot V23.89 SUPRV OTH HIGH-RISK 05/25/2018 ABEBE FULLER DO Ot V72.63 PRE-PROCEDURAL LABORATORY EXAMINATION 05/25/2018 ABEBE FULLER DO Ot V72.84 EXAM PRE-OPERATIVE NOS 05/25/2018 FULLER DO, ABEBE C Ot V74.8 SCREEN-BACTERIAL DIS NEC 05/25/2018 ORENDER DO, SOLEDAD S Ot R10.9 UNSPECIFIED ABDOMINAL PAIN 05/25/2018 JENNIFER HAN MD Ot R93.89 ABNORMAL FINDINGS ON DX IMAGING OF OTH B 05/25/2018 JENNIFER HAN MD Ot Z31.83 ENCOUNTER FOR ASSISTED REPRODCTV FERTILI 05/25/2018 JENNIFER HAN MD Ot N83.01 FOLLICULAR CYST OF RIGHT OVARY 05/25/2018 JENNIFER HAN MD Ot N83.02 FOLLICULAR CYST OF LEFT OVARY 05/25/2018 JENNIFER HAN MD Ot Z31.83 ENCOUNTER FOR ASSISTED REPRODCTV FERTILI 05/25/2018 ALINA PRADO ABEBE C Ot V23.89 [facility] OTH HIGH-RISK 05/25/2018 CHANDANA FULLER DOA C Ot V72.63 PRE-PROCEDURAL LABORATORY EXAMINATION 05/25/2018 CHANDANA FULLER DOA C Ot V72.84 EXAM PRE-OPERATIVE NOS 05/25/2018 FULLER DO, ABEBE C Ot V74.8 SCREEN-BACTERIAL DIS NEC 05/25/2018 ORENDER DO, SOLEDAD S Ot R10.9 UNSPECIFIED ABDOMINAL PAIN 05/25/2018 JENNIFER HAN MD Ot R93.89 ABNORMAL FINDINGS ON DX IMAGING OF OTH B 05/25/2018 JENNIFER HAN MD Ot Z31.83 ENCOUNTER FOR ASSISTED REPRODCTV FERTILI 05/25/2018 JENNIFER HAN MD Ot N83.01 FOLLICULAR CYST OF RIGHT OVARY 05/25/2018 JENNIFER HAN MD Ot N83.02 FOLLICULAR CYST OF LEFT OVARY 05/25/2018 JENNIFER HAN MD Ot Z31.83 ENCOUNTER FOR ASSISTED REPRODCTV FERTILI 06/03/2018 JENNIFER HAN MD Ot N83.01 FOLLICULAR CYST OF RIGHT OVARY 06/03/2018 JENNIFER HAN MD Ot N83.02 FOLLICULAR CYST OF LEFT OVARY 06/03/2018 JENNIFER HAN MD Ot R93.89 ABNORMAL FINDINGS ON DX IMAGING OF OTH B 06/03/2018 JENNIFER HAN MD Ot Z13.83 ENCOUNTER FOR SCREENING FOR RESPIRATORY 06/10/2018 JENNIFER HAN MD Ot N83.01 FOLLICULAR CYST OF RIGHT OVARY 06/10/2018 JENNIFER HAN MD Ot N83.02 FOLLICULAR CYST OF LEFT OVARY 06/10/2018 JENNIFER HAN MD Ot R93.89 ABNORMAL FINDINGS ON DX IMAGING OF OT B 06/10/2018 JENNIFER HAN MD Ot Z13.83 ENCOUNTER FOR SCREENING FOR RESPIRATORY 06/15/2018 JENNIFER HAN MD Ot N83.01 FOLLICULAR CYST OF RIGHT OVARY 06/15/2018 JENNIFER HAN MD Ot N83.02 FOLLICULAR CYST OF LEFT OVARY 06/15/2018 JENNIFER HAN MD Ot R93.89 ABNORMAL FINDINGS ON DX IMAGING OF OT B 06/15/2018 JENNIFER HAN MD Ot Z13.83 ENCOUNTER FOR SCREENING FOR RESPIRATORY 06/30/2018 JENNIFER HAN MD Ot N83.01 FOLLICULAR CYST OF RIGHT OVARY 06/30/2018 JENNIFER HAN MD Ot N83.02 FOLLICULAR CYST OF LEFT OVARY 06/30/2018 JENNIFER HAN MD Ot R93.89 ABNORMAL FINDINGS ON DX IMAGING OF [facility] B 06/30/2018 JENNIFER HAN MD Ot Z13.83 ENCOUNTER FOR SCREENING FOR RESPIRATORY 07/20/2018 JENNIFER HAN MD Ot R93.89 ABNORMAL FINDINGS ON DX IMAGING OF [facility] B 07/20/2018 JENNIFER HAN MD Ot Z31.83 ENCOUNTER FOR ASSISTED REPRODCTV FERTILI 07/20/2018 JENNIFER HAN MD Ot Z34.91 ENCNTR FOR SUPRVSN OF NORMAL PREG, UNSP, 07/20/2018 JENNIFER HAN MD Ot Z3A.08 8 WEEKS GESTATION OF 2018 JENNIFER HAN MD Ot R93.89 ABNORMAL FINDINGS ON DX IMAGING OF OT B 2018 JENNIFER HAN MD Ot Z31.83 ENCOUNTER FOR ASSISTED REPRODCTV FERTILI 08/04/2018 JENNIFER HAN MD Ot N83.01 FOLLICULAR CYST OF RIGHT OVARY 08/04/2018 JENNIFER HAN MD Ot N83.02 FOLLICULAR CYST OF LEFT OVARY 08/04/2018 JENNIFER HAN MD Ot R93.89 ABNORMAL FINDINGS ON DX IMAGING OF [facility] B 08/04/2018 JENNIFER HAN MD Ot Z31.83 ENCOUNTER FOR ASSISTED REPRODCTV FERTILI Procedures Code Description Performed By Performed On Q0091 PAP SMEAR OBTAIN SMEAR 04/27/2012 09336 URINE TEST (IN- HOUSE) 04/27/2012 84368 PAP SMEAR 05/03/2012 50561 COLP W/BIOPSY OF CERVIX 06/15/2012 88856 URINE TEST (IN- HOUSE) 06/15/2012 43488 CULTURE UROGENITAL 06/16/2012 96721 TB TEST INTRADERMAL 06/27/2012 97895 TRICHOMONAS (IN-HOUSE) 07/25/2013 42990 CULTURE UROGENITAL 07/27/2013 61826 GC/[facility] 07/27/2013 11312 PAP SMEAR 07/27/2013 Q0091 PAP SMEAR OBTAIN SMEAR 07/27/2013 74.1 LOW CERVICAL 10/21/2013 Results Test Result Range Serum or plasma estradiol (E2) measurement (mass/volume) - 04/12/18 14:00 Serum or plasma estradiol (E2) measurement (mass/volume) < pg/mL NRG Serum or plasma estradiol (E2) measurement (mass/volume) - 04/20/18 08:18 Serum or plasma estradiol (E2) measurement (mass/volume) 739 pg/mL NRG Serum or plasma estradiol (E2) measurement (mass/volume) - 04/25/18 09:00 Serum or plasma estradiol (E2) measurement (mass/volume) 323 pg/mL NRG Serum or plasma estradiol (E2) measurement (mass/volume) - 05/25/18 11:55 Serum or plasma estradiol (E2) measurement (mass/volume) < pg/mL NRG Serum or plasma estradiol (E2) measurement (mass/volume) - 06/03/18 08:11 Serum or plasma estradiol (E2) measurement (mass/volume) 61 pg/mL NRG Serum or plasma estradiol (E2) measurement (mass/volume) - 06/13/18 08:28 Serum or plasma estradiol (E2) measurement (mass/volume) 106 pg/mL NRG Serum or plasma estradiol (E2) measurement (mass/volume) - 06/15/18 09:04 Serum or plasma estradiol (E2) measurement (mass/volume) 275 pg/mL NRG Serum or plasma progesterone measurement (mass/volume) - 06/15/18 09:04 Serum or plasma progesterone measurement (mass/volume) < % NRG Serum or plasma choriogonadotropin measurement (units/volume) - 07/04/18 08:40 Serum or plasma choriogonadotropin measurement (units/volume) 3096 m [iU]/mL <5 Serum or plasma estradiol (E2) measurement (mass/volume) - 07/04/18 08:40 Serum or plasma estradiol (E2) measurement (mass/volume) 88 pg/mL NRG Serum or plasma progesterone measurement (mass/volume) - 07/04/18 08:40 Serum or plasma progesterone measurement (mass/volume) 7.29 % NRG Serum or plasma choriogonadotropin measurement (units/volume) - 07/06/18 08:13 Serum or plasma choriogonadotropin measurement (units/volume) 7836 m [iU]/mL <5 Serum or plasma estradiol (E2) measurement (mass/volume) - 07/06/18 08:13 Serum or plasma estradiol (E2) measurement (mass/volume) 344 pg/mL NRG Serum or plasma progesterone measurement (mass/volume) - 07/06/18 08:13 Serum or plasma progesterone measurement (mass/volume) 21.50 % NRG Serum or plasma choriogonadotropin measurement (units/volume) - 07/13/18 08:20 Serum or plasma choriogonadotropin measurement (units/volume) 81607 m[iU]/mL <5 Serum or plasma estradiol (E2) measurement (mass/volume) - 07/13/18 08:20 Serum or plasma estradiol (E2) measurement (mass/volume) 367 pg/mL NRG Serum or plasma progesterone measurement (mass/volume) - 07/13/18 08:20 Serum or plasma progesterone measurement (mass/volume) 8.20 % NRG Serum or plasma estradiol (E2) measurement (mass/volume) - 07/19/18 08:40 Serum or plasma estradiol (E2) measurement (mass/volume) 464 pg/mL NRG Serum or plasma progesterone measurement (mass/volume) - 07/19/18 08:40 Serum or plasma progesterone measurement (mass/volume) 55.90 % NRG Serum or plasma estradiol (E2) measurement (mass/volume) - 08/02/18 09:40 Serum or plasma estradiol (E2) measurement (mass/volume) 1779 pg/mL NRG Serum or plasma progesterone measurement (mass/volume) - 08/02/18 09:40 Serum or plasma progesterone measurement (mass/volume) 38.18 % NRG Encounters ACCT No. Visit Date/Time Discharge Status Pt. Type Provider Facility Loc./Unit Complaint [id number] 07/25/2013 15:44:00 07/25/2013 23:59:59 CLS Outpatient JAY MCCORMICK DO [id number] 2013 00:00:00 2013 23:59:59 CLS Outpatient DELGADO RILEY APRN [id number] 12/13/2012 11:28:00 12/13/2012 23:59:59 CLS Outpatient DELGADO RILEY APRN [id number] 07/07/2012 15:32:00 07/07/2012 23:59:59 CLS Outpatient [id number] 06/27/2012 10:02:00 06/27/2012 23:59:59 CLS Outpatient [id number] 06/15/2012 13:22:00 06/15/2012 23:59:59 CLS Outpatient JAY MCCORMICK DO [id number] 04/27/2012 15:07:00 04/27/2012 23:59:59 CLS Outpatient NICOLE LATHAM JOSSELYN Gonzalez [id number] 04/12/2012 14:24:00 04/12/2012 23:59:59 CLS Outpatient [id number] 08/02/2018 09:38:00 08/02/2018 23:59:59 CLS Outpatient JENNIFER HAN MD [facility] RAD Z32.0 ENCOUNTER FOR TEST [id number] 2018 10:45:00 2018 23:59:59 CLS Preadmit JENNIFER HAN MD [facility] RAD ENCOUNTER FOR ASSISTED REPRODUCTIVE FERTILITY [id number] 04/25/2018 09:00:00 07/20/2018 00:01:00 DIS Outpatient JENNIFER HAN MD [facility] RAD ENCOUNTER FOR ASSISTED REPRODUCTIVE FERTILITY [id number] 07/19/2018 07:53:00 07/19/2018 23:59:59 CLS Outpatient JENNIFER HAN MD [facility] RAD Z32.00 ENCOUNTER FOR TEST [id number] 07/06/2018 08:05:00 07/06/2018 23:59:59 CLS Outpatient JENNIFER HAN MD [facility] LAB Z31.83 [id number] 06/15/2018 08:08:00 06/15/2018 23:59:59 CLS Outpatient JENNIFER HAN MD [facility] RAD ENCOUNTER FOR ASSISTED REPRODUCTIVE FERTILITY [id number] 04/25/2018 08:00:00 04/25/2018 23:59:59 CLS Preadmit OTHER, UNLISTED [facility] RAD ENCOUNTER FOR ASSISTED REPRODUCTIVE FERTILITY [id number] 04/19/2018 13:00:00 04/19/2018 23:59:59 CLS Preadmit OTHER, UNLISTED [facility] RAD ENCOUNTER FOR ASSISTED REPRODUCTIVE FERTILITY [id number] 04/12/2018 13:49:00 04/12/2018 23:59:59 CLS Outpatient JENNIFER HAN MD [facility] RAD ENCOUNTER FOR ASSISTED REPRODUCTIVE FERTILITY [id number] 07/10/2015 14:09:00 07/10/2015 23:59:59 CLS Outpatient SOLEDAD KNIGHT DO [facility] LAB ABDOMINAL PAIN [id number] 10/21/2013 06:34:00 10/23/2013 15:40:00 DIS Inpatient ABEBE FULLER DO [facility] LDRP [id number] 10/17/2013 09:58:00 10/17/2013 23:59:59 CLS Outpatient ABEBE FULLER DO [facility] PREOP PREVIOUS 3RD ' LACARATION [id number] 06/25/2013 15:46:00 06/25/2013 23:59:59 CLS Outpatient [id number] 06/07/2013 17:23:00 06/07/2013 18:19:00 DIS Emergency KEERTHICARLOS Vázquez DO [facility] ER CRAMPING AT 19 WEEKS [id number] 11/25/2012 12:13:00 11/25/2012 23:59:59 CLS Outpatient ELIZABETH ZAMAN PA-C [facility] RAD RT PUPIL NOT REACTIVE , HEADACHES [id number] 09/23/2012 10:25:00 09/23/2012 23:59:59 CLS Outpatient [id number] 08/16/2018 10:00:00 PEN Preadmit EMELY MCRAE, JENNIFER Jackson [facility] RAD Z32.00 ENCOUNTER FOR TEST [id number] 09/04/2011 13:48:00 Document Registration [id number] 07/07/2011 09:55:00 Document Registration 07/21/18 11/07/2017 06:11:07 11/07/2017 23:59:59 CLS Outpatient Soledad Knight [id number] 04/03/2017 14:25:00 04/03/2017 23:59:59 CLS Outpatient JAY MCCORMICK DO [facility]
[2018-08-15] MEDS ORDERED: LACTATED RINGERS 1,000 ML IV ONE (02:40)
[2018-08-15] MEDS ORDERED: PROMETHAZINE INJ 25 MG/ML (PHENERGAN) AMP IVP STA (02:40)
--- NOTE | 2018-08-15 02:44 | ED Abdominal Pain ---
General Chief Complaint: Abdominal/GI Problems Stated Complaint: ABD PAIN,10 WKS Nursing Triage Note: pt presents to ed with complaints of upper abdominal pain and n/v starting at 1999 yesterday. Pt also reprots she is aprox 10 weeks preg. Sepsis Screen: No Definite Risk Source of Information: Patient History of Present Illness Date Seen by Provider: Aug 15, 2018 Time Seen by Provider: 02:35 Initial Comments PT ARRIVES VIA POV FROM HOME C/O SEVERE EPIGASTRIC PAIN THAT RADIATES INTO BACK AND AROUND SIDES/RIBS--PAIN IN BACK AND RIBS IS CONSTANT ACHE, PAIN IN EPIGASTRIC AREA IS SEVERE PAIN BEGAN AT 1999 TONIGHT NOTHING WORSENS OR IMPROVES PAIN +NAUSEA AND VOMITED X 1 NORMAL BM TODAY NO URINARY SYMPTOMS PT IS 10 WEEKS , AND HAS HAD MILD NAUSEA WITH , BUT NAUSEA TONIGHT IS MUCH WORSE NO VAGINAL BLEEDING OR PELVIC PAIN NO HISTORY OF SIMILAR PAIN HAS BEEN FINE ALL DAY, UNTIL 1999 TONIGHT PT HAS BEEN TO FERTILITY CLINIC IN [place], AND WILL BE ESTABLISHING OB CARE WITH DR. 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 PT HAD OUTPATIENT ULTRASOUND HERE 08/02/18 ( NORMAL IUP 9 WEEKS, FHR 179) AND HAS ANOTHER ONE SCHEDULE TOMORROW/WEDNESDAY HERE PT'S FATHER JUST HAD HIS GALLBLADDER REMOVED 2 WEEKS AGO AND PT BELIEVES HER SYMPTOMS TO BE THE SAME HIS SYMPTOMS HAD BEEN. Allergies and Home Medications Allergies Coded Allergies: latex (Verified Allergy, Unknown, 10/02/10) Home Medications Ferrous Gluconate 256 Mg Tablet, 256 MG PO DAILY, (Reported) Fexofenadine Hcl 60 Mg Tablet, 60 MG PO DAILY, (Reported) Hydrocodone Bit/Acetaminophen 1 Tab Tab, 1-2 TAB PO Q4H PRN for pain Prescribed by: ABEBE FULLER on 10/23/13 1307 Ibuprofen 600 Mg Tab, 600 MG PO Q6H Prescribed by: ABEBE FULLER on 10/23/13 1307 Vit#42/Fa Cmb#6 1 Mg Tab.chew, 1 MG PO DAILY, (Reported) Patient Home Medication List Home Medication List Reviewed: Yes Review of Systems Review of Systems Constitutional: no symptoms reported Respiratory: No Symptoms Reported Cardiovascular: No Symptoms Reported Gastrointestinal: See HPI, Abdominal Pain, Nausea, Vomiting Genitourinary: See HPI Musculoskeletal: see HPI, back pain Skin: no symptoms reported Psychiatric/Neurological: No Symptoms Reported Endocrine: No Symptoms Reported Past Zclylqk-Kfevzk-Aezlzv Hx Patient Social History Alcohol Use: Denies Use Recreational Drug Use: No Smoking Status: Never a Smoker Recent Foreign Travel: No Contact w/Someone Who Travel: No Recent Infectious Disease Expo: No Physical Abuse: No Sexual Abuse: No Mistreated: No Fear: No Immunizations Up To Date Tetanus Booster (TDap): Less than 5yrs Date of Pneumonia Vaccine: October 21, 2010 Date of Influenza Vaccine: Mar 24, 2013 Past Medical History Surgeries: Yes (SINUS SURGERY, RIGHT HAND BONE CORRECTION) Orthopedic, Tonsillectomy Respiratory: Yes Asthma, Chronic Bronchitis Cardiac: No Neurological: No : Yes Hx : 3 Hx Para: 2 Hx Total # of Abortions (Sp): 0 Reproductive Disorders: No Female Reproductive Disorders: Denies Genitourinary: No Gastrointestinal: No Musculoskeletal: No Endocrine: No HEENT: No Cancer: No Psychosocial: No Integumentary: No Blood Disorders: No Adverse Reaction/Blood Tranf: No Family Medical History Family history: Cardiovascular disease 19 FATHER Family history: Coronary thrombosis 19 FATHER Family history: Diabetes mellitus G8 SISTER (HX OF GESTATIONAL DIABETES ) History of - anemia 19 MOTHER History of - disorder 19 MOTHER (FIBROMYALGIA) Hypercholesterolemia 19 FATHER 19 MOTHER No Family History of: Family history: Allergy Physical Exam Vital Signs Vital Signs - First Documented 08/15/18 02:24 Temp 97.9 Pulse 81 Resp 16 B/P (MAP) 133/94 (107) Pulse Ox 100 Capillary Refill : Less Than 3 Seconds Height/Weight/BMI Height: 5'2.00" Weight: 105lbs. oz. 47.086869kd; BMI Method:Stated General Appearance: thin, other (LOOKS TO BE IN DISCOMFORT, HOLDING EPIGASTRIC AREA AND IS NAUSEATED ) HEENT: PERRL/EOMI; No scleral icterus (R), No scleral icterus (L) Neck: normal inspection Respiratory: normal breath sounds, no respiratory distress, no accessory muscle use Cardiovascular: regular rate, rhythm, no murmur Gastrointestinal: soft Extremities: normal inspection, no pedal edema, normal capillary refill Back: no CVA tenderness Neurologic/Psychiatric: senior statistician II-XII nml as tested, no motor/sensory deficits, alert, oriented x 3 Skin: warm/dry, pallor Progress/Results/Core Measures Results/Orders Lab Results Laboratory Tests Test 08/15/18 02:38 08/15/18 03:30 Range/Units White Blood Count 16.2 H 4.3-11.0 10^3/uL Red Blood Count 3.98 L 4.35-5.85 10^6/uL Hemoglobin 10.6 L 11.5-16.0 G/DL Hematocrit 32 L 35-52 % Mean Corpuscular Volume 81 80-99 FL Mean Corpuscular Hemoglobin 27 25-34 PG Mean Corpuscular Hemoglobin Concent 33 32-36 G/DL Red Cell Distribution Width 16.1 H 10.0-14.5 % Platelet Count 262 130-400 10^3/uL Mean Platelet Volume 10.8 H 7.4-10.4 FL Neutrophils (%) (Auto) 80 H 42-75 % Lymphocytes (%) (Auto) 12 12-44 % Monocytes (%) (Auto) 7 0-12 % Eosinophils (%) (Auto) 1 0-10 % Basophils (%) (Auto) 0 0-10 % Neutrophils # (Auto) 12.9 H 1.8-7.8 X 10^3 Lymphocytes # (Auto) 1.9 1.0-4.0 X 10^3 Monocytes # (Auto) 1.2 H 0.0-1.0 X 10^3 Eosinophils # (Auto) 0.2 0.0-0.3 10^3/uL Basophils # (Auto) 0.0 0.0-0.1 10^3/uL Neutrophils % (Manual) 78 % Lymphocytes % (Manual) 14 % Monocytes % (Manual) 4 % Eosinophils % (Manual) 1 % Band Neutrophils 3 % Blood Morphology Comment NORMAL Sodium Level 136 135-145 MMOL/L Potassium Level 5.2 H 3.6-5.0 MMOL/L Chloride Level 106 98-107 MMOL/L Carbon Dioxide Level 16 L 21-32 MMOL/L Anion Gap 14 5-14 MMOL/L Blood Urea Nitrogen 11 7-18 MG/DL Creatinine 0.70 0.60-1.30 MG/DL Estimat Glomerular Filtration Rate > 60 BUN/Creatinine Ratio 16 Glucose Level 96 70-105 MG/DL Calcium Level 9.2 8.5-10.1 MG/DL Corrected Calcium 9.2 8.5-10.1 MG/DL Total Bilirubin 0.3 0.1-1.0 MG/DL Aspartate Amino Transf (AST/SGOT) 26 5-34 U/L Alanine Aminotransferase (ALT/SGPT) 10 0-55 U/L Alkaline Phosphatase 49 40-136 U/L Total Protein 6.7 6.4-8.2 GM/DL Albumin 4.0 3.2-4.5 GM/DL Amylase Level 38 25-125 U/L Lipase 36 8-78 U/L Human Chorionic Gonadotropin, Quant [id number] H <5 MIU/ML Urine Color YELLOW Urine Clarity VERY CLOUDY H Urine pH 8 5-9 Urine Specific [place] 1.015 L 1.016-1.022 Urine Protein NEGATIVE NEGATIVE Urine Glucose (UA) NEGATIVE NEGATIVE Urine Ketones 2+ H NEGATIVE Urine Nitrite NEGATIVE NEGATIVE Urine Bilirubin NEGATIVE NEGATIVE Urine Urobilinogen NORMAL NORMAL MG/DL Urine Leukocyte Esterase NEGATIVE NEGATIVE Urine RBC (Auto) NEGATIVE NEGATIVE Urine RBC NONE /HPF Urine WBC NONE /HPF Urine Squamous Epithelial Cells 0-2 /HPF Urine Crystals PRESENT H /LPF Urine Amorphous Sediment LARGE HA PHOSPHATE H /LPF Urine Bacteria NEGATIVE /HPF Urine Casts NONE /LPF Urine Mucus NEGATIVE /LPF Urine Culture Indicated NO My Orders Orders - CARLOS PENDLETON DO Amylase (08/15/18 02:40) Cbc With Automated Diff (08/15/18 02:40) Comprehensive Metabolic Panel (08/15/18 02:40) Hcg,Quantitative (08/15/18 02:40) Lipase (08/15/18 02:40) Ua Culture If Indicated (08/15/18 02:40) Abo Rh Type (08/15/18 02:40) Saline Lock/Iv-Start (08/15/18 02:40) Lactated Ringers (Lr 1000 Ml Iv Solution (08/15/18 02:40) Promethazine Injection (Phenergan Injec (08/15/18 02:40) Saline Lock/Iv-Start (08/15/18 02:40) Manual Differential (08/15/18 02:38) Heart Tones (08/15/18 02:59) Fentanyl Injection (Sublimaze Injection (08/15/18 03:09) Fentanyl Injection (Sublimaze Injection (08/15/18 03:45) Promethazine Injection (Phenergan Injec (08/15/18 03:45) Medications Given in ED Current Medications Medications Dose Ordered Sig/Edna Route Start Time Stop Time Status Last Admin Dose Admin Fentanyl Citrate 25 mcg ONCE ONCE IVP 08/15/18 03:45 08/15/18 03:47 DC 08/15/18 04:02 25 MCG Lactated Ringer's 1,000 ml @ 0 mls/hr Q0M ONCE IV 08/15/18 02:40 08/15/18 02:42 DC 08/15/18 02:50 0 MLS/HR Promethazine HCl 25 mg ONCE ONCE IVP 08/15/18 03:45 08/15/18 03:47 DC 08/15/18 04:02 25 MG Vital Signs/I&O 08/15/18 02:24 Temp 97.9 Pulse 81 Resp 16 B/P (MAP) 133/94 (107) Pulse Ox 100 Blood Pressure Mean: 107 Progress Progress Note : Progress Note PAIN AND NAUSEA IMPROVED WITH MEDICATIONS FHR 185 Departure Communication (Admissions) [id number]--SPOKE WITH DR. VARELA, ACCEPTS PT FOR ADMIT AND WILL OBTAIN ULTRASOUND THIS AM, ULTRASOUND IS CURRENTLY UNAVAILABLE Impression Primary Impression: Epigastric abdominal pain affecting in first trimester Additional Impression: 10 weeks gestation of Disposition: 09 ADMITTED INPATIENT Condition: Improved Admissions Decision to Admit Reason: Admit from ER (General) Decision to Admit/Date: Aug 15, 2018 Time/Decision to Admit Time: 03:45 Departure-Patient Inst. Referrals: ABEBE FULLER DO (PCP/Family) Primary Care Physician CARLOS PENDLETON DO Aug 15, 2018 02:44
[2018-08-15 02:48] LABS: BASOPHILS % (AUTO) 0 % (0-10); EOSINOPHILS # (AUTO) 0.2 10^3/uL (0.0-0.3); EOSINOPHILS % (AUTO) 1 % (0-10); HEMATOCRIT 32 % (35-52); HEMOGLOBIN 10.6 G/DL (11.5-16.0); LYMPHOCYTES # (AUTO) 1.9 X 10^3 (1.0-4.0); LYMPHOCYTES % (AUTO) 12 % (12-44); MEAN CORPUSCULAR HEMOGLOBIN 27 PG (25-34); MEAN CORPUSCULAR HGB CONC 33 G/DL (32-36); MEAN CORPUSCULAR VOLUME 81 FL (80-99); MEAN PLATELET VOLUME 10.8 FL (7.4-10.4); MONOCYTES # (AUTO) 1.2 X 10^3 (0.0-1.0); MONOCYTES % (AUTO) 7 % (0-12); NEUTROPHILS # (AUTO) 12.9 X 10^3 (1.8-7.8); NEUTROPHILS % (AUTO) 80 % (42-75); PLATELET COUNT 262 10^3/uL (130-400); RED CELL DISTRIBUTION WIDTH 16.1 % (10.0-14.5); WHITE BLOOD COUNT 16.2 10^3/uL (4.3-11.0)
[2018-08-15 03:06] LABS: ALANINE AMINOTRANSFERASE 10 U/L (0-55); ALKALINE PHOSPHATASE 49 U/L (40-136); AMYLASE 38 U/L (25-125); BILIRUBIN,TOTAL 0.3 MG/DL (0.1-1.0); BUN/CREATININE RATIO 16; CALCIUM 9.2 MG/DL (8.5-10.1); CARBON DIOXIDE 16 MMOL/L (21-32); CHLORIDE 106 MMOL/L (98-107); GFR ESTIMATED > 60; GLUCOSE 96 MG/DL (70-105); LIPASE 36 U/L (8-78); POTASSIUM 5.2 MMOL/L (3.6-5.0); SODIUM 136 MMOL/L (135-145); TOTAL PROTEIN 6.7 GM/DL (6.4-8.2)
[2018-08-15] MEDS ORDERED: fentaNYL INJECTION 100 MCG/2 ML AMP IVP STA (03:09)
[2018-08-15 03:17] LABS: BAND NEUTROPHILS 3 %; EOSINOPHILS % (MANUAL) 1 %; LYMPHOCYTES % (MANUAL) 14 %; MONOCYTES % (MANUAL) 4 %; NEUTROPHILS % (MANUAL) 78 %; RBC MORPH NORMAL
[2018-08-15 03:40] LABS: BILIRUBIN,URINE NEGATIVE (NEGATIVE); CLARITY,URINE VERY CLOUDY; COLOR,URINE YELLOW; GLUCOSE, URINE (UA) NEGATIVE (NEGATIVE); KETONES,URINE 2+ (NEGATIVE); LEUKOCYTE ESTERASE ,URINE NEGATIVE (NEGATIVE); NITRITE,URINE NEGATIVE (NEGATIVE); PH,URINE 8 (5-9); PROTEIN,URINE NEGATIVE (NEGATIVE); UROBILINOGEN,URINE NORMAL (NORMAL)
[2018-08-15] MEDS ORDERED: PROMETHAZINE INJ 25 MG/ML (PHENERGAN) AMP IVP ONE (03:45)
[2018-08-15] MEDS ORDERED: fentaNYL INJECTION 100 MCG/2 ML AMP IVP ONE (03:45)
[2018-08-15 03:50] LABS: AMORPHOUS SEDIMENT,UR LARGE AMOR PHOSPHATE /LPF; BACTERIA,URINE NEGATIVE /HPF; SQUAMOUS EPITHELIAL CELL,UR 0-2 /HPF
--- OUTSIDE RECORDS SUMMARY | 2018-08-15 03:55 | XMS REPORT | Continuity of Care Document ---
Author Author On License Of [facility] Address Unknown Phone Unavailable Allergies Active Description Code Type Severity Reaction Onset Reported/Identified Relationship to Patient Clinical Status Yes latex [id number] Drug Allergy Unknown N/A 01/27/2007 Yes latex [...] DX (3 YRS AND ABOVE, IM) 03/23/2011 JAEC JAY PRADO K 461.9 ACUTE SINUSITIS UNSPECIFIED 03/23/2011 JACE PRADOJAY K V04.81 FLU DX (3 YRS AND ABOVE, IM) 03/23/2011 ROSEMARY BARREL DRUM CUTTER, DELGADO A 461.9 ACUTE SINUSITIS UNSPECIFIED 03/23/2011 ROSEMARY BARREL DRUM CUTTER, DELGADO A V04.81 FLU DX (3 YRS AND ABOVE, IM) 03/23/2011 461.9 ACUTE SINUSITIS UNSPECIFIED 03/23/2011 V04.81 FLU DX (3 YRS AND ABOVE, IM) 05/14/2011 NICOLE BARREL DRUM CUTTER, JOSSELYN S V05.3 HEP B (ADULT) DX 05/14/2011 NICOLE BARREL DRUM CUTTER, JOSSELYN S V06.1 TDAP DX 05/14/2011 NICOLERAUL BOWENRicardo JOSSELYN S V06.4 MMR DX 05/14/2011 NICOLE BOWENN, JOSSELYN S V74.1 TB SCREENING 05/14/2011 MCCORMICK JAY PRADO K V05.3 HEP B (ADULT) DX 05/14/2011 MCCORMICK JAY PRADO K V06.1 TDAP DX 05/14/2011 MCCORMICK JAY PRADO K V06.4 MMR DX 05/14/2011 MCCORMICK JAY PRADO K V74.1 TB SCREENING 05/14/2011 V05.3 HEP B (ADULT) DX 05/14/2011 V06.1 TDAP DX 05/14/2011 V06.4 MMR DX 05/14/2011 V74.1 TB SCREENING 05/14/2011 V05.3 HEP B (ADULT) DX 05/14/2011 V06.1 TDAP DX 05/14/2011 V06.4 MMR DX 05/14/2011 V74.1 TB SCREENING 05/14/2011 ROSEMARY BARREL DRUM CUTTER, DELGADO A V05.3 HEP B (ADULT) DX 05/14/2011 ROSEMARY BARREL DRUM CUTTER, DELGADO A V06.1 TDAP DX 05/14/2011 ROSEMARY BARREL DRUM CUTTER, DELGADO A V06.4 MMR DX 05/14/2011 ROSEMARY BARREL DRUM CUTTER, DELGADO A V74.1 TB SCREENING 05/14/2011 MCCORMICK [...] A V25.02 CONTRACEPTION - ANY METHOD 04/27/2012 DELGADO RILEY APRN A V76.10 BREAST CANCER SCREENING 04/27/2012 DELGADO RILEY APRN A V76.2 CERVICAL CANCER SCREENING (PAP SMEAR) 04/27/2012 JAY MCCORMICK DO V25.02 CONTRACEPTION - ANY METHOD 04/27/2012 JAY MCCORMICK DO V76.10 BREAST CANCER SCREENING 04/27/2012 JAY MCCORMICK DO V76.2 CERVICAL CANCER SCREENING (PAP SMEAR) 04/27/2012 DELGADO RILEY APRN A V25.02 CONTRACEPTION - ANY METHOD 04/27/2012 ROSEMARY BARREL DRUM CUTTER, DELGADO A V76.10 BREAST CANCER SCREENING 04/27/2012 [...] DELGADO A 364.75 PUPIL ABNORMALITY 11/25/2012 ROSEMARY BARREL DRUM CUTTER, DELGADO A 388.70 OTALGIA 11/25/2012 ROSEMARY APRN, [...] 05/25/2018 ALINA PRADO ABEBE C Ot V23.89 [facility] OTH HIGH-RISK 05/25/2018 CHANDANA FULLER DOA [...] DX IMAGING OF OT B 06/15/2018 JENNIFER AHN MD Ot Z13.83 ENCOUNTER FOR SCREENING FOR RESPIRATORY 06/30/2018 JENNIFER HAN MD Ot N83.01 FOLLICULAR CYST OF RIGHT OVARY 06/30/2018 JENNIFER HAN MD Ot N83.02 FOLLICULAR CYST OF LEFT OVARY 06/30/2018 JENNIFER HNA MD Ot R93.89 ABNORMAL FINDINGS ON DX IMAGING OF [facility] B 06/30/2018 JENNIFER HAN MD Ot Z13.83 ENCOUNTER FOR SCREENING FOR RESPIRATORY 07/20/2018 JENNIFER HAN MD Ot R93.89 ABNORMAL FINDINGS ON DX IMAGING OF [facility] B 07/20/2018 JENNIFER HAN MD Ot [...] R93.89 ABNORMAL FINDINGS ON DX IMAGING OF [facility] B 08/04/2018 JENNIFER HAN MD Ot Z31.83 ENCOUNTER FOR ASSISTED REPRODCTV FERTILI Procedures Code Description Performed By Performed On Q0091 PAP SMEAR OBTAIN SMEAR 04/27/2012 11671 URINE TEST (IN- HOUSE) 04/27/2012 18521 PAP SMEAR 05/03/2012 00757 COLP W/BIOPSY OF CERVIX 06/15/2012 43037 URINE TEST (IN- HOUSE) 06/15/2012 63395 CULTURE UROGENITAL 06/16/2012 78596 TB TEST INTRADERMAL 06/27/2012 90755 TRICHOMONAS (IN-HOUSE) 07/25/2013 25768 CULTURE UROGENITAL 07/27/2013 73740 GC/CHLAM PROBE ([facility]) 07/27/2013 31976 PAP SMEAR 07/27/2013 Q0091 PAP SMEAR OBTAIN [...] 08:20 Serum or plasma choriogonadotropin measurement (units/volume) 22853 m[iU]/mL <5 Serum or plasma estradiol (E2) [...] Status Pt. Type Provider Facility Loc./Unit Complaint [id number] 07/25/2013 15:44:00 07/25/2013 23:59:59 CLS Outpatient JAY MCCORMICK DO [id number] 2013 00:00:00 2013 23:59:59 CLS Outpatient DELGADO RILEY APRN [id number] 12/13/2012 11:28:00 12/13/2012 23:59:59 CLS Outpatient DELGADO RILEY APRN [id number] 07/07/2012 15:32:00 07/07/2012 23:59:59 CLS Outpatient [id number] 06/27/2012 10:02:00 06/27/2012 23:59:59 CLS Outpatient [id number] 06/15/2012 13:22:00 06/15/2012 23:59:59 CLS Outpatient JAY MCCORMICK DO [id number] 04/27/2012 15:07:00 04/27/2012 23:59:59 CLS Outpatient NICOLE LATHAM JOSSELYN Gonzalez [id number] 04/12/2012 14:24:00 04/12/2012 23:59:59 CLS Outpatient [id number] 08/02/2018 09:38:00 08/02/2018 23:59:59 CLS Outpatient JENNIFER HAN MD [facility] RAD Z32.0 ENCOUNTER FOR TEST [id number] 2018 10:45:00 2018 23:59:59 CLS Preadmit JENNIFER HAN MD [facility] RAD ENCOUNTER FOR ASSISTED REPRODUCTIVE FERTILITY [id number] 04/25/2018 09:00:00 07/20/2018 00:01:00 DIS Outpatient JENNIFER HAN MD [facility] RAD ENCOUNTER FOR ASSISTED REPRODUCTIVE FERTILITY [id number] 07/19/2018 07:53:00 07/19/2018 23:59:59 CLS Outpatient JENNIFER HAN MD [facility] RAD Z32.00 ENCOUNTER FOR TEST [id number] 07/06/2018 08:05:00 07/06/2018 23:59:59 CLS Outpatient JENNIFER HAN MD [facility] LAB Z31.83 [id number] 06/15/2018 08:08:00 06/15/2018 23:59:59 CLS Outpatient JENNIFER HAN MD [facility] RAD ENCOUNTER FOR ASSISTED REPRODUCTIVE FERTILITY [id number] 04/25/2018 08:00:00 04/25/2018 23:59:59 CLS Preadmit OTHER, UNLISTED [facility] RAD ENCOUNTER FOR ASSISTED REPRODUCTIVE FERTILITY [id number] 04/19/2018 13:00:00 04/19/2018 23:59:59 CLS Preadmit OTHER, UNLISTED [facility] RAD ENCOUNTER FOR ASSISTED REPRODUCTIVE FERTILITY [id number] 04/12/2018 13:49:00 04/12/2018 23:59:59 CLS Outpatient JENNIFER HAN MD [facility] RAD ENCOUNTER FOR ASSISTED REPRODUCTIVE FERTILITY [id number] 07/10/2015 14:09:00 07/10/2015 23:59:59 CLS Outpatient SOLEDAD KNIGHT DO [facility] LAB ABDOMINAL PAIN [id number] 10/21/2013 06:34:00 10/23/2013 15:40:00 DIS Inpatient ABEBE FULLER DO [facility] LDRP [id number] 10/17/2013 09:58:00 10/17/2013 23:59:59 CLS Outpatient ABEBE FULLER DO [facility] PREOP PREVIOUS 3RD ' LACARATION [id number] 06/25/2013 15:46:00 06/25/2013 23:59:59 CLS Outpatient [id number] 06/07/2013 17:23:00 06/07/2013 18:19:00 DIS Emergency KEERTHICARLOS Vázquez DO [facility] ER CRAMPING AT 19 WEEKS [id number] 11/25/2012 12:13:00 11/25/2012 23:59:59 CLS Outpatient ELIZABETH ZAMAN PA-C [facility] RAD RT PUPIL NOT REACTIVE , HEADACHES [id number] 09/23/2012 10:25:00 09/23/2012 23:59:59 CLS Outpatient [id number] 08/16/2018 10:00:00 PEN Preadmit EMELY MCRAE, JENNIFER Jackson [facility] RAD Z32.00 ENCOUNTER FOR TEST [id number] 09/04/2011 13:48:00 Document Registration [id number] 07/07/2011 09:55:00 Document Registration 07/21/18 11/07/2017 06:11:07 11/07/2017 23:59:59 CLS Outpatient Soledad Knight [id number] 04/03/2017 14:25:00 04/03/2017 23:59:59 CLS Outpatient JAY MCCORMICK DO [facility]
--- NOTE | 2018-08-15 04:15 | NUR ---
MILADIS DE LA ROSA presented to unit via w/c from ED, accompanied by mother, with c/o EPIGASTRIC PAIN;10 WKS . MILADIS DE LA ROSA weighed, gowned, voided, and to bed. VS taken. MILADIS DE LA ROSA oriented to bed controls, call light, TV, heat, and A/C controls.
--- NOTE | 2018-08-15 04:20 | NUR ---
assessment completed. pt c/o upper quadrant abdominal pain that started around 1999. pain radiates to back. Positive right quadrant tenderness. pt denies any diarrhea. report nausea/vomiting. denies any sick contact.
--- NOTE | 2018-08-15 04:24 | NUR ---
notified of pt's arrival to unit. new orders received.
[2018-08-15] MEDS ORDERED: D5 LR IV SOLUTION 1,000 ML IV ONE (04:28)
[2018-08-15] MEDS ORDERED: D5 LR IV SOLUTION 1,000 ML IV SCH (04:30)
[2018-08-15] MEDS ORDERED: PROMETHAZINE INJ 25 MG/ML (PHENERGAN) AMP IVP PRN (04:30)
[2018-08-15] MEDS ORDERED: fentaNYL INJECTION 100 MCG/2 ML AMP IVP PRN (04:30)
[2018-08-15 04:43] VITALS: BP 116/63
[2018-08-15 06:29] LABS: BASOPHILS % (AUTO) 0 % (0-10); EOSINOPHILS % (AUTO) 0 % (0-10); HEMATOCRIT 32 % (35-52); HEMOGLOBIN 10.6 G/DL (11.5-16.0); LYMPHOCYTES # (AUTO) 0.9 X 10^3 (1.0-4.0); LYMPHOCYTES % (AUTO) 6 % (12-44); MEAN CORPUSCULAR HEMOGLOBIN 27 PG (25-34); MEAN CORPUSCULAR HGB CONC 33 G/DL (32-36); MEAN CORPUSCULAR VOLUME 81 FL (80-99); MEAN PLATELET VOLUME 10.4 FL (7.4-10.4); MONOCYTES # (AUTO) 0.9 X 10^3 (0.0-1.0); MONOCYTES % (AUTO) 6 % (0-12); NEUTROPHILS # (AUTO) 13.7 X 10^3 (1.8-7.8); NEUTROPHILS % (AUTO) 88 % (42-75); PLATELET COUNT 230 10^3/uL (130-400); RED CELL DISTRIBUTION WIDTH 15.9 % (10.0-14.5); WHITE BLOOD COUNT 15.6 10^3/uL (4.3-11.0)
[2018-08-15 06:50] LABS: ALANINE AMINOTRANSFERASE 8 U/L (0-55); ALBUMIN 3.9 GM/DL (3.2-4.5); ALKALINE PHOSPHATASE 50 U/L (40-136); AMYLASE 42 U/L (25-125); BILIRUBIN,TOTAL 0.4 MG/DL (0.1-1.0); BUN/CREATININE RATIO 12; CALCIUM 9.2 MG/DL (8.5-10.1); CARBON DIOXIDE 20 MMOL/L (21-32); CHLORIDE 108 MMOL/L (98-107); CREATININE SERUM 0.66 MG/DL (0.60-1.30); GFR ESTIMATED > 60; GLUCOSE 100 MG/DL (70-105); LIPASE 37 U/L (8-78); POTASSIUM 3.9 MMOL/L (3.6-5.0); SODIUM 139 MMOL/L (135-145); TOTAL PROTEIN 6.4 GM/DL (6.4-8.2)
--- NOTE | 2018-08-15 07:00 | NUR ---
REPORT FROM ANA CABRERA.
--- NOTE | 2018-08-15 08:15 | NUR ---
SONO TO PTS BEDSIDE.
--- NOTE | 2018-08-15 08:25 | NUR ---
DR VARELA TO PTS SIDE, VISITING WITH PT, NEW ORDERS RECEIVED.
[2018-08-15 08:30] VITALS: BP 103/56
--- NOTE | 2018-08-15 08:30 | NUR ---
INITIAL ASSESSMENT COMPLETED AT BEDSIDE, VSS, PLAN OF CARE UPDATED WITH PT, NO QUESTIONS NOTED, WILL MONITOR CLOSELY. FHTS COMPLETED BY Kiran SHEA.
--- NOTE | 2018-08-15 08:35 | History & Physical-OB ---
OB - Chief Complaint & HPI Date/Time Date of Admission: Date of Admission: Aug 15, 2018 at 03:45 Date seen by a Provider: Aug 15, 2018 Time Seen by a Provider: 08:15 Chief Complaint/History OB-Reason for Admission/Chief: upper abdominal pain Hx : 3 Hx Para: 2 Expected Date of Delivery: Mar 06, 2019 Other reason for admission: Admitted for obs last night due to upper abdominal pain sudden onset last night after dinner(pizza). Reports the pain kept her from sleeping. Denies vaginal bleeding, cramping or spotting. Admission Nurse Assessment Rev: Yes Allergies and Home Medications Allergies Coded Allergies: latex (Verified Allergy, Unknown, 10/02/10) Home Medications Ferrous Gluconate 256 Mg Tablet, 256 MG PO DAILY, (Reported) Fexofenadine Hcl 60 Mg Tablet, 60 MG PO DAILY, (Reported) Hydrocodone Bit/Acetaminophen 1 Tab Tab, 1-2 TAB PO Q4H PRN for pain Prescribed by: ABEBE FULLER on 10/23/13 1307 Ibuprofen 600 Mg Tab, 600 MG PO Q6H Prescribed by: ABEBE FULLER on 10/23/13 1307 Vit#42/Fa Cmb#6 1 Mg Tab.chew, 1 MG PO DAILY, (Reported) Patient Home Medication List Home Medication List Reviewed: Yes OB - History Hx of Present Care: Yes Obstetrical Complications: None Medical Complications: None Obstetrical History Hx : 3 Hx Para: 2 Hx Termination: No Hx Total # of Abortions (Spona: 0 Hx Multiple Gestation: No Hx Stillbirth: No Hx Complication: No Hx Induced Hypertens: No Hx Maternal Gestational Diabet: No Delivery History Hx Dystocia: No Hx Large For Gestational Age I: No Hx Small for Gestational Age I: No Hx Section: No Hx Vaginal Delivery Post C-Sec: No Hx Blood Disorders: No Adverse Rxn to Tranfusion: No Patient Past Medical History n/a Social History/Family History Recent Infectious Disease Expo: No Alcohol Use: Denies Use Recreational Drug Use: No Immunizations Tetanus Booster (TDap): Less than 5yrs Date of Pneumonia Vaccine: October 21, 2010 Date of Influenza Vaccine: Mar 24, 2013 OB - Admission Exam Physical Exam Vitals: Vital Signs 08/15/18 08/15/18 04:08 04:43 Temp 97.2 Pulse 96 Resp 18 B/P (MAP) 116/63 (80) Pulse Ox 100 HEENT: NCAT Heart: Rhythm Normal Lungs: Clear Labs Laboratory Tests Test 08/15/18 02:38 08/15/18 03:30 08/15/18 06:20 Range/Units White Blood Count 16.2 H 15.6 H 4.3-11.0 10^3/uL Red Blood Count 3.98 L 3.99 L 4.35-5.85 10^6/uL Hemoglobin 10.6 L 10.6 L 11.5-16.0 G/DL Hematocrit 32 L 32 L 35-52 % Mean Corpuscular Volume 81 81 80-99 FL Mean Corpuscular Hemoglobin 27 27 25-34 PG Mean Corpuscular Hemoglobin Concent 33 33 32-36 G/DL Red Cell Distribution Width 16.1 H 15.9 H 10.0-14.5 % Platelet Count 262 230 130-400 10^3/uL Mean Platelet Volume 10.8 H 10.4 7.4-10.4 FL Neutrophils (%) (Auto) 80 H 88 H 42-75 % Lymphocytes (%) (Auto) 12 6 L 12-44 % Monocytes (%) (Auto) 7 6 0-12 % Eosinophils (%) (Auto) 1 0 0-10 % Basophils (%) (Auto) 0 0 0-10 % Neutrophils # (Auto) 12.9 H 13.7 H 1.8-7.8 X 10^3 Lymphocytes # (Auto) 1.9 0.9 L 1.0-4.0 X 10^3 Monocytes # (Auto) 1.2 H 0.9 0.0-1.0 X 10^3 Eosinophils # (Auto) 0.2 0.0 0.0-0.3 10^3/uL Basophils # (Auto) 0.0 0.0 0.0-0.1 10^3/uL Neutrophils % (Manual) 78 % Lymphocytes % (Manual) 14 % Monocytes % (Manual) 4 % Eosinophils % (Manual) 1 % Band Neutrophils 3 % Blood Morphology Comment NORMAL Sodium Level 136 139 135-145 MMOL/L Potassium Level 5.2 H 3.9 3.6-5.0 MMOL/L Chloride Level 106 108 H 98-107 MMOL/L Carbon Dioxide Level 16 L 20 L 21-32 MMOL/L Anion Gap 14 11 5-14 MMOL/L Blood Urea Nitrogen 11 8 7-18 MG/DL Creatinine 0.70 0.66 0.60-1.30 MG/DL Estimat Glomerular Filtration Rate > 60 > 60 BUN/Creatinine Ratio 16 12 Glucose Level 96 100 70-105 MG/DL Calcium Level 9.2 9.2 8.5-10.1 MG/DL Corrected Calcium 9.2 9.3 8.5-10.1 MG/DL Total Bilirubin 0.3 0.4 0.1-1.0 MG/DL Aspartate Amino Transf (AST/SGOT) 26 17 5-34 U/L Alanine Aminotransferase (ALT/SGPT) 10 8 0-55 U/L Alkaline Phosphatase 49 50 40-136 U/L Total Protein 6.7 6.4 6.4-8.2 GM/DL Albumin 4.0 3.9 3.2-4.5 GM/DL Amylase Level 38 42 25-125 U/L Lipase 36 37 8-78 U/L Human Chorionic Gonadotropin, Quant [id number] H <5 MIU/ML Urine Color YELLOW Urine Clarity VERY CLOUDY H Urine pH 8 5-9 Urine Specific [place] 1.015 L 1.016-1.022 Urine Protein NEGATIVE NEGATIVE Urine Glucose (UA) NEGATIVE NEGATIVE Urine Ketones 2+ H NEGATIVE Urine Nitrite NEGATIVE NEGATIVE Urine Bilirubin NEGATIVE NEGATIVE Urine Urobilinogen NORMAL NORMAL MG/DL Urine Leukocyte Esterase NEGATIVE NEGATIVE Urine RBC (Auto) NEGATIVE NEGATIVE Urine RBC NONE /HPF Urine WBC NONE /HPF Urine Squamous Epithelial Cells 0-2 /HPF Urine Crystals PRESENT H /LPF Urine Amorphous Sediment LARGE HA PHOSPHATE H /LPF Urine Bacteria NEGATIVE /HPF Urine Casts NONE /LPF Urine Mucus NEGATIVE /LPF Urine Culture Indicated NO OB - Assessment/Plan/Diagnosis Assessment Assessment: other (Biliary dyskinesia) Admission Dx 33 yo @ 10 weeks Biliary dyskinesia Admission Status: Observation Plan Other Plan US pending, discussed dietary mod, and possible General S consultation if concerns further, or obstructive stone noted. Follow up later this week with TITA Newman DO Aug 15, 2018 08:35
--- NOTE | 2018-08-15 10:02 | Diagnostic Imaging Report ---
PROCEDURE: US abdomen complete. TECHNIQUE: Multiple real-time grayscale images were obtained over the abdomen in various projections. INDICATION: Epigastric pain. The liver is normal in size at 14.5 cm. No discrete liver mass is identified. The portal vein is patent and shows normal direction of flow. The gallbladder is without stones or sludge. No wall thickening or biliary duct dilatation is seen. The visualized pancreas is unremarkable. The spleen is normal in size at 8.4 cm. The visualized abdominal aorta is non-aneurysmal. IVC is unremarkable. Right and left kidneys are unremarkable. No calculi or hydronephrosis is identified. There is no ascites. IMPRESSION: Unremarkable abdominal ultrasound. Dictated by: Dictated on workstation # [id number]
--- NOTE | 2018-08-15 10:20 | NUR ---
DR VARELA CALLED, UPDATED DR ON DEANO RESULTS, NEW ORDER TO D/C PT HOME. FOLLOW UP WITH DR FULLER.
--- NOTE | 2018-08-15 10:28 | NUR ---
FOLLOW UP APPOINTMENT MADE WITH DR FULLER FOR Wednesday AT 0930.
--- NOTE | 2018-08-15 10:44 | Diagnostic Imaging Report ---
PROCEDURE: US OB SINGLE FETUS <14 WKS. TECHNIQUE: Multiple Real-time grayscale images were obtained over the gravid uterus in various projections. INDICATION: Epigastric pain during . CORRELATION STUDY: 08/02/2018. FINDINGS: There is presence of an intrauterine currently in variable presentation. The crown/rump length measures 39.01 mm for an estimated age of 10 weeks 6 days for an estimated date of delivery of 03/07/2019. Gestational sac configuration appears unremarkable. No abnormal denny-gestational fluid collections. cardiac activity at 183 BPM. Imaging of the maternal adnexa demonstrates nonvisualization of either ovary. IMPRESSION: Limited obstetrical sonogram imaging demonstrates an early viable intrauterine with an estimated age of 10 weeks 6 days for an estimated date of delivery of 03/07/2019. No abnormality is demonstrated at this time on the limited ultrasound evaluation. Dictated by: Dictated on workstation # [id number]
--- NOTE | 2018-08-15 11:15 | NUR ---
IV DC'D, DISCHARGE INSTRUCTIONS EXPLAINED, SIGNED, NO QUESTIONS NOTED, VSS, NO DISTRESS NOTED, PT VERBALIZES UNDERSTANDING OF FOLLOW UP CARE AND INSTRUCTIONS. WILL MONITOR CLOSELY.
--- NOTE | 2018-08-15 11:25 | NUR ---
PT DISCHARGED TO HOME, TAKEN BY WC TO PRIVATE CAR WITH STAFF AND MOTHER AT SIDE. NO DISTRESS NOTED, PT VERBALIZES UNDERSTANDING OF FOLLOW UP CARE AND DIET/MANAGEMENT OF BILIARY DYSKINESIA.
== END 2018-08-15 10:21 | disposition home or self-care (01) ==
LOC: EDUNIT# 02:16 → ER 02:17 → UNDOADMOB 03:45 → WS 03:45 → UNDODISOB 11:25
PROVIDERS: ADMIT Obstetrics & Gynecology; ATTEND Obstetrics & Gynecology
DX: O99.611 Diseases of the digestive system complicating pregnancy, first trimester (principal); K82.8 Other specified diseases of gallbladder; O99.511 Diseases of the respiratory system complicating pregnancy, first trimester; J45.909 Unspecified asthma, uncomplicated; Z3A.10 10 weeks gestation of pregnancy
CPT/HCPCS: 36415; 76700; 76801; 80053; 81000; 82150; 83690; 84702; 85007; 85025; 85027; 86900; 86901; 96361; 96374; 96375; 96376; G0378

== ENCOUNTER → 2018-08-16 | Outpatient (CLI) | payer OTHER ==
--- NOTE | 2018-08-16 14:15 | Diagnostic Imaging Report ---
PROCEDURE: US OB SINGLE FETUS <14 WKS. TECHNIQUE: Multiple real-time grayscale images were obtained over the gravid uterus in various projections. INDICATION: Early COMPARISON: 08/15/2018 FINDINGS: Single live intrauterine is identified with a heart rate of 170 beats per minute. Visualized pole is unremarkable. The amniotic fluid volume is normal. The placenta appears to be developing anteriorly. There is a small subchorionic hemorrhage near the lower uterine segment. Both ovaries and adnexa are grossly normal. There is no free fluid. IMPRESSION: 1. New small subchorionic hemorrhage. 2. Single live intrauterine 11 weeks 3 days with a due date by today's ultrasound of 03/04/2019. Dictated by: Dictated on workstation # [id number]
== END ==
LOC: RAD 09:35
PROVIDERS: ATTEND Obstetrics & Gynecology Reproductive Endocrinology
DX: O20.9 Hemorrhage in early pregnancy, unspecified (principal); Z3A.11 11 weeks gestation of pregnancy
CPT/HCPCS: 36415; 76801; 82670; 84144

== ENCOUNTER → 2018-10-26 | Outpatient (CLI) | payer OTHER ==
--- NOTE | 2018-10-26 17:14 | Diagnostic Imaging Report ---
INDICATION: Second trimester . TECHNIQUE: Multiple real-time grayscale images were obtained over the gravid uterus. COMPARISON: 08/16/2018. FINDINGS: A single live intrauterine fetus is seen measuring 21 weeks 4 days in size with EDC of 03/04/2019. This is about six days larger than expected from previous dates but probably within variation. The fetus is in cephalic presentation. Amniotic fluid is qualitatively normal. There is no subchorionic bleed. The placenta is grade 1 and posterior and appears to overlie the cervical os. heart rate is 155 beats per minute. Cervical length is 4.3 cm. survey showed no abnormalities in the kidneys, bladder, stomach, or intracranial ventricles. Four-chamber heart view is normal. The three-vessel cord and cord insertion were normal. spine appeared unremarkable. There is no adnexal mass or free fluid. Biometrical measurements are as follows: Biparietal 4.90 cm, age 20 weeks 6 days. Head circumference 18.92 cm, age 21 weeks 2 days. Abdominal circumference 17.73 cm, age 22 weeks 5 days. Femur length 3.55 cm, age 21 weeks 2 days. Sonographic estimate age: 21 weeks 4 days. Sonographic estimated date of delivery: 03/04/2019. Estimated Weight: 457 gm (+/- 67 gm). LMP percentile: 75%. heart rate: 155 beats per minute. number: 1 of 1. IMPRESSION: Single live intrauterine fetus measuring 21 weeks 4 days in size. The placenta partially overlaps the internal cervical os, compatible with previa, recommend followup later in to determine if this resolves. There is no detectable abnormality. Cervical length is normal. Dictated by: Dictated on workstation # [id number]
== END ==
LOC: RAD 14:58
PROVIDERS: ATTEND Obstetrics & Gynecology
DX: Z34.92 Encounter for supervision of normal pregnancy, unspecified, second trimester (principal); Z3A.21 21 weeks gestation of pregnancy
CPT/HCPCS: 76805

== ENCOUNTER 2019-01-11 15:48 | Observation (INO) | payer OTHER ==
[~2019-01-11] VITALS: Ht 157.5 cm; Wt 63.5 kg
--- NOTE | 2019-01-11 15:50 | NUR ---
MILADIS DE LA ROSA presented to unit via AMBULATION from OFFICE, with c/o GALLBLADDER ISSUES. MILADIS DE LA ROSA weighed, gowned, voided, and to bed. EFHM and TOCO applied, VS taken. MILADIS DE LA ROSA oriented to bed controls, call light, TV, heat, and A/C controls.
[2019-01-11] MEDS ORDERED: D5 LR IV SOLUTION 1,000 ML IV SCH (15:57)
[2019-01-11] MEDS ORDERED: LACTATED RINGERS 1,000 ML IV SCH ×2 (15:57→16:00)
[2019-01-11] MEDS ORDERED: PROMETHAZINE INJ 25 MG/ML (PHENERGAN) AMP IVP ONE (16:00)
[2019-01-11 16:10] VITALS: BP 115/70
[2019-01-11] MEDS: morphine INJ 4 MG/ML 1 ML (VIAL/SYRINGE) IVP PRN ×2 (16:49→20:13)
[2019-01-11 16:51] LABS: BASOPHILS % (AUTO) 0 % (0-10); EOSINOPHILS # (AUTO) 0.3 10^3/uL (0.0-0.3); EOSINOPHILS % (AUTO) 2 % (0-10); HEMATOCRIT 30 % (35-52); HEMOGLOBIN 9.8 G/DL (11.5-16.0); LYMPHOCYTES # (AUTO) 1.8 X 10^3 (1.0-4.0); LYMPHOCYTES % (AUTO) 11 % (12-44); MEAN CORPUSCULAR HEMOGLOBIN 28 PG (25-34); MEAN CORPUSCULAR HGB CONC 32 G/DL (32-36); MEAN CORPUSCULAR VOLUME 88 FL (80-99); MEAN PLATELET VOLUME 9.7 FL (7.4-10.4); MONOCYTES # (AUTO) 1.7 X 10^3 (0.0-1.0); MONOCYTES % (AUTO) 11 % (0-12); NEUTROPHILS # (AUTO) 12.2 X 10^3 (1.8-7.8); NEUTROPHILS % (AUTO) 76 % (42-75); PLATELET COUNT 283 10^3/uL (130-400); RED CELL DISTRIBUTION WIDTH 16.5 % (10.0-14.5); WHITE BLOOD COUNT 15.9 10^3/uL (4.3-11.0)
[2019-01-11 17:10] VITALS: BP 105/57
[2019-01-11 17:11] LABS: LYMPHOCYTES % (MANUAL) 14 %; MONOCYTES % (MANUAL) 7 %; NEUTROPHILS % (MANUAL) 79 %
[2019-01-11 17:12] LABS: RBC MORPH NORMAL; TOXIC GRANULATION/VACUOLAZATIO 1+
[2019-01-11 17:15] LABS: ALANINE AMINOTRANSFERASE 10 U/L (0-55); ALBUMIN 3.3 GM/DL (3.2-4.5); ALKALINE PHOSPHATASE 142 U/L (40-136); AMYLASE 51 U/L (25-125); BILIRUBIN,TOTAL 0.3 MG/DL (0.1-1.0); BUN/CREATININE RATIO 7; CALCIUM 8.6 MG/DL (8.5-10.1); CARBON DIOXIDE 24 MMOL/L (21-32); CHLORIDE 107 MMOL/L (98-107); CREATININE SERUM 0.56 MG/DL (0.60-1.30); GFR ESTIMATED > 60; GLUCOSE 92 MG/DL (70-105); LIPASE 35 U/L (8-78); POTASSIUM 3.8 MMOL/L (3.6-5.0); SODIUM 137 MMOL/L (135-145); TOTAL PROTEIN 6.3 GM/DL (6.4-8.2)
--- NOTE | 2019-01-11 17:59 | Diagnostic Imaging Report ---
PROCEDURE: US Abdomen, limited. TECHNIQUE: Multiple realtime grayscale images were obtained over the abdomen in various projections. INDICATION: Right upper quadrant pain. FINDINGS: Liver parenchyma is homogeneous with normal echotexture. The gallbladder is clear with no stones or wall thickening. Common duct is not dilated. Pancreas is obscured by bowel gas. Right kidney is normal in size. IMPRESSION: Negative gallbladder sonogram. Dictated by: Dictated on workstation # [id number]
[2019-01-11 18:10] VITALS: BP 99/57
--- NOTE | 2019-01-11 18:15 | NUR ---
DR. FULLER HERE TO SEE PT. PLAN TO KEEP PT OVERNIGHT FOR NAUSEA AND PAIN CONTROL. SEPTEMBER D/C CONTINUOUS MONITORING.
--- NOTE | 2019-01-11 19:00 | NUR ---
Nancy rn reports in shift change report, ordering no nst over night, one to be completed before pt d/c tomorrow.
[2019-01-11] MEDS: PROMETHAZINE INJ 25 MG/ML (PHENERGAN) AMP IVP PRN (20:13)
[2019-01-11 20:20] VITALS: BP 101/66
--- NOTE | 2019-01-11 20:20 | NUR ---
Pt ordered dinner, and ate applesauce and crackers, reporting pain return with nausea, medication administered. Will cont to monitor.
[2019-01-12] MEDS: PROMETHAZINE INJ 25 MG/ML (PHENERGAN) AMP IVP PRN (06:24)
[2019-01-12 07:52] VITALS: BP 98/59
--- NOTE | 2019-01-12 08:53 | Progress Note ---
Standard Progress Note Progress Notes/Assess & Plan Date Seen by a Provider: Jan 12, 2019 Time Seen by a Provider: 08:45 Progress/Assessment & Plan 01/12/19 01/12/19 07:52 07:52 Temp 98.6 Pulse 84 Resp 16 B/P (MAP) 98/59 (72) Pulse Ox 99 99 O2 Delivery Room Air Room Air 01/12/19 00:00 Intake Total 1000 ml Balance 1000 ml Laboratory Tests Test 01/11/19 16:40 Range/Units White Blood Count 15.9 H 4.3-11.0 10^3/uL Red Blood Count 3.46 L 4.35-5.85 10^6/uL Hemoglobin 9.8 L 11.5-16.0 G/DL Hematocrit 30 L 35-52 % Mean Corpuscular Volume 88 80-99 FL Mean Corpuscular Hemoglobin 28 25-34 PG Mean Corpuscular Hemoglobin Concent 32 32-36 G/DL Red Cell Distribution Width 16.5 H 10.0-14.5 % Platelet Count 283 130-400 10^3/uL Mean Platelet Volume 9.7 7.4-10.4 FL Neutrophils (%) (Auto) 76 H 42-75 % Lymphocytes (%) (Auto) 11 L 12-44 % Monocytes (%) (Auto) 11 0-12 % Eosinophils (%) (Auto) 2 0-10 % Basophils (%) (Auto) 0 0-10 % Neutrophils # (Auto) 12.2 H 1.8-7.8 X 10^3 Lymphocytes # (Auto) 1.8 1.0-4.0 X 10^3 Monocytes # (Auto) 1.7 H 0.0-1.0 X 10^3 Eosinophils # (Auto) 0.3 0.0-0.3 10^3/uL Basophils # (Auto) 0.0 0.0-0.1 10^3/uL Neutrophils % (Manual) 79 % Lymphocytes % (Manual) 14 % Monocytes % (Manual) 7 % Toxic Granulation 1+ Dohle Bodies SLIGHT Blood Morphology Comment NORMAL Sodium Level 137 135-145 MMOL/L Potassium Level 3.8 3.6-5.0 MMOL/L Chloride Level 107 98-107 MMOL/L Carbon Dioxide Level 24 21-32 MMOL/L Anion Gap 6 5-14 MMOL/L Blood Urea Nitrogen 4 L 7-18 MG/DL Creatinine 0.56 L 0.60-1.30 MG/DL Estimat Glomerular Filtration Rate > 60 BUN/Creatinine Ratio 7 Glucose Level 92 70-105 MG/DL Calcium Level 8.6 8.5-10.1 MG/DL Corrected Calcium 9.2 8.5-10.1 MG/DL Total Bilirubin 0.3 0.1-1.0 MG/DL Aspartate Amino Transf (AST/SGOT) 20 5-34 U/L Alanine Aminotransferase (ALT/SGPT) 10 0-55 U/L Alkaline Phosphatase 142 H 40-136 U/L Total Protein 6.3 L 6.4-8.2 GM/DL Albumin 3.3 3.2-4.5 GM/DL Amylase Level 51 25-125 U/L Lipase 35 8-78 U/L 1. Biliary colic 2. 32 week ABEBE FULLER DO Jan 12, 2019 08:53
[2019-01-12] MEDS ORDERED: PROM25TA14 PO (08:54)
[2019-01-12] MEDS ORDERED: OXC5T PO (08:54)
[2019-01-12] MEDS ORDERED: DICY10CA12 PO (08:54)
--- NOTE | 2019-01-12 08:58 | Discharge Inst-Women's Service ---
Discharge Inst-Women's Serv Depart Medication/Instructions New, Converted or Re-Newed RX: Other (transmitted and on chart) Instructions bland diet (see instructions) bentyl before eating pain medication and promethazine as needed Final Diagnosis biliary colic 32 week abdominal pain and nausea Problems Reviewed?: Yes Consults/Follow Up Additional Follow Up: Yes (per normal scheduled appointment) Activity Activity: Activity as Tolerated Driving Instructions: You May Drive NO SMOKING: NO SMOKING Nothing Inside Vagina: No Douching, No [place], No Tampons Diet Discharge Diet: Other Diet Symptoms to Report to : Swelling Increased, Bleeding Excessive, Pain Increased, Fever Over 101 Degrees F, Vaginal Bleeding Increase, Cramps in Feet or Legs, Vaginal Discharge ABEBE Sicnlair DO Jan 12, 2019 08:57
[2019-01-12] MEDS ORDERED: PROMETHAZINE 25 MG (PHENERGAN) TAB PO PRN (09:00)
--- NOTE | 2019-01-12 10:15 | NUR ---
JIMMYJESSICAMILADIS Juarez demonstrates understanding of discharge instructions and accurately returns instructions upon questioning. Copy of Post-Discharge Instructions and Medication Discharge Instructions given to patient. JIMMYJESSICAMILADIS Juarez is able to manage continuing needs after discharge. Patients belongings returned to patient. Skin dry and intact; no breakdown noted. Patient discharged from 330- on 01/12/19 at 1015. JIMMYJESSICAMILADIS Juarez left floor via wheelchair, accompanied by women services staff to personal vehicle.
[2019-01-12] MEDS ORDERED: DICYCLOMINE 10 MG (BENTYL) CAP PO SCH (11:00)
[2019-01-12 11:02] VITALS: BP 98/59
== END 2019-01-12 10:15 | disposition home or self-care (01) ==
LOC: WSo 15:48 → LDRP 15:48 → WSo 15:50 → LDRP 15:50 → WSo 01-12 09:12
PROVIDERS: ADMIT Obstetrics & Gynecology; ATTEND Obstetrics & Gynecology
DX: R10.11 Right upper quadrant pain (principal)
CPT/HCPCS: 36415; 76705; 80053; 82150; 83690; 85007; 85027; 96361; 96374; 96375; 96376

== ENCOUNTER → 2019-02-14 | Outpatient (CLI) | payer OTHER ==
[~2019-02-14] MED LIST changes: +DICY10CA12 PO; +OXC5T PO; +PROM25TA14 PO
--- NOTE | 2019-02-14 15:13 | Diagnostic Imaging Report ---
INDICATION: Evaluate position. FINDINGS: There is a single live fetus in a cephalic presentation. The heart rate was recorded at 128 BPM. The amniotic fluid index is 15.4 cm. The placenta is anterior and fundal. No previa is seen. IMPRESSION: Unremarkable limited obstetrical ultrasound. Dictated by: Dictated on workstation # [id number]
== END ==
LOC: RAD 11:48
PROVIDERS: ATTEND Nurse Practitioner Women's Health
DX: Z34.90 Encounter for supervision of normal pregnancy, unspecified, unspecified trimester (principal); Z3A.00 Weeks of gestation of pregnancy not specified
CPT/HCPCS: 76815

== ENCOUNTER 2019-03-02 06:00 | Inpatient (IN) | payer OTHER ==
[2019-03-02] VITALS (76 sets, daily range): BP systolic 88–139; BP diastolic 52–85
[~2019-03-02] VITALS: Ht 157.5 cm; Wt 65.3 kg
[2019-03-02] MEDS ORDERED: D5 LR IV SOLUTION 1,000 ML IV ONE (08:11)
[2019-03-02] MEDS ORDERED: MINERAL OIL CONCENTRATE 99.9% 15 ML UDC TOP PRN (08:15)
[2019-03-02] MEDS ORDERED: AMPICILLIN FOR IV USE 2,000 MG in WATER (STERILE) FOR INJECTION 14.8 ML IV SCH (08:15)
--- NOTE | 2019-03-02 08:15 | NUR ---
DORY DE LA ROSAANNETTE Lagunas presented to unit ambulatory from home, accompanied by mother, for INDUCTION. DORY DE LA ROSAILY Janneth weighed, gowned, voided, and to bed. EFHM and TOCO applied, VS taken. DORY DE LA ROSAILY Janneth oriented to bed controls, call light, TV, heat, and A/C controls. No concerns voiced. Family at bedside. Visitation explained to family and where to locate waiting room.
[2019-03-02 08:52] LABS: BASOPHILS % (AUTO) 0 % (0-10); EOSINOPHILS # (AUTO) 0.2 10^3/uL (0.0-0.3); EOSINOPHILS % (AUTO) 2 % (0-10); HEMATOCRIT 36 % (35-52); HEMOGLOBIN 11.9 G/DL (11.5-16.0); LYMPHOCYTES # (AUTO) 1.8 X 10^3 (1.0-4.0); LYMPHOCYTES % (AUTO) 20 % (12-44); MEAN CORPUSCULAR HEMOGLOBIN 30 PG (25-34); MEAN CORPUSCULAR HGB CONC 33 G/DL (32-36); MEAN CORPUSCULAR VOLUME 92 FL (80-99); MEAN PLATELET VOLUME 9.6 FL (7.4-10.4); MONOCYTES # (AUTO) 0.9 X 10^3 (0.0-1.0); MONOCYTES % (AUTO) 10 % (0-12); NEUTROPHILS # (AUTO) 6.2 X 10^3 (1.8-7.8); NEUTROPHILS % (AUTO) 68 % (42-75); PLATELET COUNT 238 10^3/uL (130-400); WHITE BLOOD COUNT 9.2 10^3/uL (4.3-11.0)
[2019-03-02] MEDS ORDERED: SUFENTA 0.6MCG/ML BUPIVA 0.125 100 ML ONE (09:28)
[2019-03-02] MEDS ORDERED: LACTATED RINGERS 1,000 ML IV SCH (10:06)
[2019-03-02] MEDS ORDERED: CETI10CA PO (10:10)
[2019-03-02] MEDS ORDERED: NF-XOP-HFA INH (10:13)
[2019-03-02] MEDS ORDERED: NALOXONE 0.4 MG/ML 1 ML (NARCAN) VIAL IV PRN ×2 (10:15)
[2019-03-02] MEDS ORDERED: EPIDURAL (SUFENTA 0.6MCG/ML BUPIVA 0.125%) 100 ML BAG EPI SCH (10:15)
[2019-03-02] MEDS ORDERED: diphenhydrAMINE 50 MG/ML INJ (BENADRYL) IV PRN (10:15)
[2019-03-02] MEDS ORDERED: METOCLOPRAMIDE INJ 10 MG/2 ML (REGLAN) IV PRN (10:15)
[2019-03-02] MEDS ORDERED: OXYTOCIN/NORMAL SALINE 500 ML IV SCH ×2 (10:51→19:57)
[2019-03-02] MEDS: ONDANSETRON 4 MG/2 ML (SDV) Z0FRAN IV PRN ×2 (10:56→17:36)
[2019-03-02] MEDS ORDERED: OXYTOCIN/NORMAL SALINE 500 ML IV ONE (11:02)
[2019-03-02 13:06] LABS: BILIRUBIN,URINE NEGATIVE (NEGATIVE); CLARITY,URINE CLEAR; COLOR,URINE YELLOW; GLUCOSE, URINE (UA) NEGATIVE (NEGATIVE); KETONES,URINE NEGATIVE (NEGATIVE); LEUKOCYTE ESTERASE ,URINE NEGATIVE (NEGATIVE); NITRITE,URINE NEGATIVE (NEGATIVE); PH,URINE 7 (5-9); PROTEIN,URINE 1+ (NEGATIVE); UROBILINOGEN,URINE NORMAL (NORMAL)
[2019-03-02 13:10] LABS: BACTERIA,URINE TRACE /HPF; WBC,URINE RARE /HPF
[2019-03-02] MEDS: AMPICILLIN FOR IV USE 1,000 MG in WATER (STERILE) FOR INJECTION 7.4 ML IV SCH ×2 (13:30→17:48)
[2019-03-02] MEDS ORDERED: CATHETER FLUSH 10 ML SYR IV SCH (14:00)
[2019-03-02] MEDS: D5 LR IV SOLUTION 1,000 ML IV SCH ×2 (16:15→17:07)
[2019-03-02] MEDS ORDERED: LIDOCAINE/EPI 2% 1:200,00 (XYLOCAINE) 10 ML VIAL ONE (18:46)
[2019-03-02] MEDS ORDERED: PROMETHAZINE INJ 25 MG/ML (PHENERGAN) AMP ONE (19:52)
[2019-03-02] MEDS ORDERED: DIBUCAINE (NUPERCAINAL) 1% OINT 30 GM TOP PRN (20:00)
[2019-03-02] MEDS ORDERED: TETANUS,DIPTH,PERTUSS P/F (BOOSTRIX) 0.5 ML VIAL IM ONE (20:00)
[2019-03-02] MEDS ORDERED: MEASLES,MUMPS,RUBELLA 1 EA INJ SQ ONE (20:00)
[2019-03-02] MEDS ORDERED: IBUPROFEN 600 MG (MOTRIN) TAB PO ONE (20:03)
[2019-03-02] MEDS ORDERED: WITCH HAZEL(TUCKS) 40 EA JAR ONE (20:03)
[2019-03-02] MEDS ORDERED: BENZOCAINE/MENTHOL (DERMOPLAST) 56 ML CAN TP ONE (20:03)
--- NOTE | 2019-03-02 20:04 | OB Labor & Delivery Record ---
Vag Delivery Note Vag Delivery Note Date of Delivery: 03/02/19 Preoperative Diagnosis: Lazara Gary is a 33 /Para 3 /2 ,Gestational Age 39 1/7 weeks, social induction/surrogate, GBS + Postoperative Diagnosis: Same Surgeon: ABEBE FULLER Sheet Metal Superintendent: Harjeet Stahl, MS III Anesthesia: epidural Delivery Type: vaginal Findings: Viable male , apgars 9/9, weight 8#13ounces Lacerations: 2nd degree with vaginal extension Intact placenta with 3 vessel cord. Nuchal cord x 1 delivered through, No body cord or shoulder dystocia Estimated Blood Loss: 500 ml Complications: None Condition: Stable Description of Procedure: The patient is a 33 /Para 3 /2 ,Gestational Age 39 1/7 weeks, social induction/surrogate. She was admitted and informed consent was obtained. Her labor course was remarkable for Ampicillin prophylaxis, AROM and oxytocin augmentation. She progressed to complete dilatation and began to push. She was then set up for delivery. The infant's head was delivered atraumatically in the LISBETH position. The shoulders and remainder of the infant's body were then delivered without difficulty. Upon delivery, the head was held below the level of the perineum and the mouth and nares were bulb suctioned. The cord was doubly clamped and cut and the was handed off to the pediatric staff. An intact placenta with 3-vessel cord delivered via Radha and there was found to be minimal bleeding.~ Vigorous fundal massage was performed and the fundus was found to be firm. IV oxytocin was given. Examination of the vagina and perineum revealed a 2nd laceration repaired in the usual fashion with 3-0 vicryl suture. Following the repair, sponge, instrument and needle counts were correct. Mom and baby were both in stable condition in the labor suite. Vitals - Labs Vital Signs - I&O Vital Signs Date Time Temp Pulse Resp B/P (MAP) Pulse Ox O2 Delivery O2 Flow Rate FiO2 03/02/19 18:57 122 139/70 (93) Room Air 03/02/19 18:42 36.3 123 18 130/81 (97) Room Air 03/02/19 18:27 90 116/79 (91) Room Air 03/02/19 18:12 78 125/85 (98) Room Air 03/02/19 17:55 87 114/77 (89) Room Air 03/02/19 17:42 98 114/78 (90) Room Air 03/02/19 17:25 77 110/73 (85) Room Air 03/02/19 17:22 116/84 (95) Room Air 03/02/19 17:19 90 116/78 (91) Room Air 03/02/19 17:16 88 120/82 (95) Room Air 03/02/19 17:13 90 115/78 (90) Room Air 03/02/19 17:10 85 116/75 (89) Room Air 03/02/19 17:04 87 18 116/77 (90) Room Air 03/02/19 17:00 75 18 114/76 (89) Room Air 03/02/19 16:45 71 18 112/74 (87) Room Air 03/02/19 16:30 75 18 112/69 (83) Room Air 03/02/19 16:15 85 18 117/70 (86) Room Air 03/02/19 16:00 36.0 76 18 110/79 (89) Room Air 03/02/19 15:45 75 18 109/75 (86) Room Air 03/02/19 15:30 85 18 116/76 (89) Room Air 03/02/19 15:15 83 18 113/74 (87) Room Air 03/02/19 15:00 83 18 114/69 (84) Room Air 03/02/19 14:45 111 18 106/70 (82) Room Air 03/02/19 14:30 80 18 108/68 (81) Room Air 03/02/19 14:18 35.7 76 18 115/72 (86) Room Air 03/02/19 14:00 81 18 112/69 (83) Room Air 03/02/19 13:45 71 18 110/63 (79) Room Air 03/02/19 13:30 81 18 114/71 (85) 100 Room Air 03/02/19 13:15 78 18 108/67 (81) 100 Room Air 03/02/19 13:00 77 18 109/68 (82) 100 Room Air 03/02/19 12:45 83 18 106/73 (84) 99 Room Air 03/02/19 12:30 76 18 104/67 (79) 100 Room Air 03/02/19 12:15 72 18 105/69 (81) 100 Room Air 03/02/19 12:00 36.2 76 18 109/70 (83) 99 Room Air 03/02/19 11:45 86 18 101/70 (80) 99 Room Air 03/02/19 11:30 86 18 111/71 (84) 99 Room Air 03/02/19 11:15 81 18 101/70 (80) 99 Room Air 03/02/19 11:00 90 18 100/68 (79) 99 Room Air 03/02/19 10:44 83 18 102/62 (75) 99 Room Air 03/02/19 10:40 110 18 94/57 (69) 100 Room Air 03/02/19 10:34 81 18 103/58 (73) 99 Room Air 03/02/19 10:28 105 18 105/59 (74) 99 Room Air 03/02/19 10:23 96 18 114/59 (77) 99 Room Air 03/02/19 10:20 99 18 112/54 (73) 99 Room Air 03/02/19 10:14 95 18 114/67 (83) 98 Room Air 03/02/19 10:10 95 18 114/67 (83) 98 Room Air 03/02/19 10:07 86 18 119/65 (83) 100 Room Air 03/02/19 10:04 100 18 131/71 (91) 100 Room Air 03/02/19 10:00 86 18 115/66 (82) 99 Room Air 03/02/19 09:56 86 18 113/67 (82) 99 Room Air 03/02/19 09:53 100 18 120/69 (86) 99 Room Air 03/02/19 09:50 96 18 131/74 (93) 100 Room Air 03/02/19 09:46 110 18 136/83 (100) 100 Room Air 03/02/19 09:43 113 18 126/85 (99) Room Air 03/02/19 09:41 86 18 124/78 (93) Room Air 03/02/19 08:35 36.1 103 18 123/75 (91) Room Air 03/02/19 08:00 36.1 103 18 100 Room Air Labs Laboratory Tests 03/02/19 08:30: White Blood Count 9.2, Red Blood Count 3.94L, Hemoglobin 11.9, Hematocrit 36, Mean Corpuscular Volume 92, Mean Corpuscular Hemoglobin 30, Mean Corpuscular Hemoglobin Concent 33, Red Cell Distribution Width 22.0H, Platelet Count 238, Mean Platelet Volume 9.6, Neutrophils (%) (Auto) 68, Lymphocytes (%) (Auto) 20, Monocytes (%) (Auto) 10, Eosinophils (%) (Auto) 2, Basophils (%) (Auto) 0, Neutrophils # (Auto) 6.2, Lymphocytes # (Auto) 1.8, Monocytes # (Auto) 0.9, Eosinophils # (Auto) 0.2, Basophils # (Auto) 0.0 03/02/19 12:45: Urine Color YELLOW, Urine Clarity CLEAR, Urine pH 7, Urine Specific [place] 1.015L, Urine Protein 1+H, Urine Glucose (UA) NEGATIVE, Urine Ketones NEGATIVE, Urine Nitrite NEGATIVE, Urine Bilirubin NEGATIVE, Urine Urobilinogen NORMAL, Urine Leukocyte Esterase NEGATIVE, Urine RBC (Auto) 2+H, Urine RBC 10-25H, Urine WBC RARE, Urine Squamous Epithelial Cells 5-10, Urine Crystals NONE, Urine Bacteria TRACE, Urine Casts NONE, Urine Mucus SMALLH, Urine Culture Indicated NO ABEBE FULLER DO Mar 02, 2019 20:04
[2019-03-02] MEDS: IBUPROFEN 600 MG (MOTRIN) TAB PO SCH (20:08)
[2019-03-02] MEDS: BENZOCAINE/MENTHOL (DERMOPLAST) 56 ML CAN TP PRN (20:08)
[2019-03-02] MEDS: WITCH HAZEL(TUCKS) 40 EA JAR TOP PRN (20:08)
[2019-03-02] MEDS ORDERED: PROMETHAZINE INJ 25 MG/ML (PHENERGAN) AMP IVP ONE (21:00)
[2019-03-03] VITALS (10 sets, daily range): BP systolic 89–112; BP diastolic 57–78
--- NOTE | 2019-03-03 00:20 | NUR ---
Pt sits up on SOB, epidural cath removed, tip in tact, site wnl and left o/a. Pt up standby to bathroom, pt reports feeling dizzy and nauseas after first void, pericare pads and gown changed, pt to reclining chair and laid flat, pt reports relief. Pt transferred to pp room 312 via reclining chair, pt transferred to bed, hob elevated, pt request crackers and supplied, sandwich tray to be delivered on arrival. Pt denies further needs or symptoms. Will cont to monitor.
[2019-03-03] MEDS: IBUPROFEN 600 MG (MOTRIN) TAB PO SCH ×4 (02:34→19:51)
[2019-03-03 07:21] LABS: BASOPHILS % (AUTO) 0 % (0-10); EOSINOPHILS # (AUTO) 0.1 10^3/uL (0.0-0.3); EOSINOPHILS % (AUTO) 0 % (0-10); HEMATOCRIT 24 % (35-52); HEMOGLOBIN 7.7 G/DL (11.5-16.0); LYMPHOCYTES # (AUTO) 1.8 X 10^3 (1.0-4.0); LYMPHOCYTES % (AUTO) 11 % (12-44); MEAN CORPUSCULAR HEMOGLOBIN 31 PG (25-34); MEAN CORPUSCULAR HGB CONC 33 G/DL (32-36); MEAN CORPUSCULAR VOLUME 95 FL (80-99); MONOCYTES # (AUTO) 1.2 X 10^3 (0.0-1.0); MONOCYTES % (AUTO) 7 % (0-12); NEUTROPHILS # (AUTO) 13.1 X 10^3 (1.8-7.8); NEUTROPHILS % (AUTO) 81 % (42-75); PLATELET COUNT 202 10^3/uL (130-400); RED CELL DISTRIBUTION WIDTH 21.7 % (10.0-14.5); WHITE BLOOD COUNT 16.1 10^3/uL (4.3-11.0)
[2019-03-03] MEDS: DOCUSATE SODIUM 100 MG (COLACE) CAP PO SCH ×2 (07:48→19:51)
[2019-03-03] MEDS: PRENATAL VITAMIN 1 EA TAB PO SCH (07:48)
[2019-03-03] MEDS: FERROUS SULF 325 MG (IRON) TAB PO SCH (07:48)
--- NOTE | 2019-03-03 08:00 | NUR ---
VS taken, meds given, assessment completed. Breast pump set up for pt at this time to pump colostrum. Demonstrated use for pt at this time. Assisted pt to set up and start pumping, education on pumping given. Pt denies needs or concerns at this time.
--- NOTE | 2019-03-03 09:00 | NUR ---
IV taped, shower set up for pt at this time. Pt to shower independently. No needs voiced at this time.
--- NOTE | 2019-03-03 09:29 | Anesthesia-Regional Post-Op ---
Regional Patient Condition Mental Status: Alert, Oriented x3 Circulation: Same as Pre-Op Headache: Absent Sensation: Full Recovery Motor Block: Absent Post Op Complications Complications None Follow Up Care/Instructions Patient Instructions None needed. Anesthesia/Patient Condition Patient is doing well, no complaints, stable vital signs, no apparent adverse anesthesia problems. No complications reported per nursing. D/C home per [facility] Criteria: JOSIAH Avila CRNA Mar 03, 2019 09:29
--- NOTE | 2019-03-03 10:12 | Postpartum Progress Note ---
Note Note Day # 1 s/p / Subjective: Patient is without complaints. Ambulating, voiding. Tolerating a regular diet without nausea or vomiting. Normal lochia. Pain is well controlled with oral pain medications. Objective: Laboratory Tests Test 03/02/19 12:45 03/03/19 06:52 Range/Units Urine Color YELLOW Urine Clarity CLEAR Urine pH 7 5-9 Urine Specific [place] 1.015 L 1.016-1.022 Urine Protein 1+ H NEGATIVE Urine Glucose (UA) NEGATIVE NEGATIVE Urine Ketones NEGATIVE NEGATIVE Urine Nitrite NEGATIVE NEGATIVE Urine Bilirubin NEGATIVE NEGATIVE Urine Urobilinogen NORMAL NORMAL MG/DL Urine Leukocyte Esterase NEGATIVE NEGATIVE Urine RBC (Auto) 2+ H NEGATIVE Urine RBC 10-25 H /HPF Urine WBC RARE /HPF Urine Squamous Epithelial Cells 5-10 /HPF Urine Crystals NONE /LPF Urine Bacteria TRACE /HPF Urine Casts NONE /LPF Urine Mucus SMALL H /LPF Urine Culture Indicated NO White Blood Count 16.1 H 4.3-11.0 10^3/uL Red Blood Count 2.49 L 4.35-5.85 10^6/uL Hemoglobin 7.7 #L 11.5-16.0 G/DL Hematocrit 24 L 35-52 % Mean Corpuscular Volume 95 80-99 FL Mean Corpuscular Hemoglobin 31 25-34 PG Mean Corpuscular Hemoglobin Concent 33 32-36 G/DL Red Cell Distribution Width 21.7 H 10.0-14.5 % Platelet Count 202 130-400 10^3/uL Mean Platelet Volume 10.0 7.4-10.4 FL Neutrophils (%) (Auto) 81 H 42-75 % Lymphocytes (%) (Auto) 11 L 12-44 % Monocytes (%) (Auto) 7 0-12 % Eosinophils (%) (Auto) 0 0-10 % Basophils (%) (Auto) 0 0-10 % Neutrophils # (Auto) 13.1 H 1.8-7.8 X 10^3 Lymphocytes # (Auto) 1.8 1.0-4.0 X 10^3 Monocytes # (Auto) 1.2 H 0.0-1.0 X 10^3 Eosinophils # (Auto) 0.1 0.0-0.3 10^3/uL Basophils # (Auto) 0.0 0.0-0.1 10^3/uL 03/02/19 03/02/19 03/02/19 03/02/19 22:24 22:40 22:54 23:09 Pulse 81 68 68 78 Resp 18 18 18 18 B/P (MAP) 89/54 (66) 91/54 (66) 97/55 (69) 88/52 (64) O2 Delivery Room Air Room Air Room Air Room Air 03/02/19 03/02/19 03/02/19 03/03/19 23:25 23:39 23:54 02:34 Temp 36.2 Pulse 74 80 67 81 Resp 18 18 18 18 B/P (MAP) 92/55 (67) 91/52 (65) 97/57 (70) 89/57 (68) Pulse Ox 98 O2 Delivery Room Air Room Air Room Air Room Air 03/03/19 07:49 Temp 36.6 Pulse 86 Resp 18 B/P (MAP) 98/59 (72) Pulse Ox 98 O2 Delivery Room Air 03/03/19 00:00 Intake Total 2114.8 ml Output Total 400 ml Balance 1714.8 ml Physical Exam: General - Alert and oriented, no apparent distress Abdomen - Soft, appropriately tender to palpation, non-distended, fundus firm at umbilicus Extremities - no edema, negative Tommy's bilaterally Assessment: 1. post- day # 1, status post spontaneous vaginal delivery. Recovering well, hemodynamically stable 2. acute blood loss anemia 3. perineal laceration healed Plan: Routine care. Encourage breast feeding. Encourage ambulation. Ferrous sulfate supplementation. Plan for discharge today/tomorrow Vitals - Labs Vital Signs - I&O Vital Signs Date Time Temp Pulse Resp B/P (MAP) Pulse Ox O2 Delivery O2 Flow Rate FiO2 03/03/19 07:49 36.6 86 18 98/59 (72) 98 Room Air 03/03/19 02:34 36.2 81 18 89/57 (68) 98 Room Air 03/02/19 23:54 67 18 97/57 (70) Room Air 03/02/19 23:39 80 18 91/52 (65) Room Air 03/02/19 23:25 74 18 92/55 (67) Room Air 03/02/19 23:09 78 18 88/52 (64) Room Air 03/02/19 22:54 68 18 97/55 (69) Room Air 03/02/19 22:40 68 18 91/54 (66) Room Air 03/02/19 22:24 81 18 89/54 (66) Room Air 03/02/19 22:09 76 18 91/54 (66) Room Air 03/02/19 21:54 86 18 88/52 (64) Room Air 03/02/19 21:39 88 18 92/59 (70) Room Air 03/02/19 21:24 104 18 90/60 (70) Room Air 03/02/19 21:10 97 18 95/64 (74) Room Air 03/02/19 21:00 36.8 97 18 100/64 (76) Room Air 03/02/19 20:45 36.9 100 18 110/62 (78) Room Air 03/02/19 20:30 36.7 104 18 103/58 (73) Room Air 03/02/19 20:15 36.8 123 18 116/71 (86) Room Air 03/02/19 20:00 36.4 103 18 120/60 (80) Room Air 03/02/19 19:24 118 119/73 (88) Room Air 03/02/19 19:15 112 127/68 (87) Room Air 03/02/19 18:57 122 139/70 (93) Room Air 03/02/19 18:42 36.3 123 18 130/81 (97) Room Air 03/02/19 18:27 90 116/79 (91) Room Air 03/02/19 18:12 78 125/85 (98) Room Air 03/02/19 17:55 87 114/77 (89) Room Air 03/02/19 17:42 98 114/78 (90) Room Air 03/02/19 17:25 77 110/73 (85) Room Air 03/02/19 17:22 116/84 (95) Room Air 03/02/19 17:19 90 116/78 (91) Room Air 03/02/19 17:16 88 120/82 (95) Room Air 03/02/19 17:13 90 115/78 (90) Room Air 03/02/19 17:10 85 116/75 (89) Room Air 03/02/19 17:04 87 18 116/77 (90) Room Air 03/02/19 17:00 75 18 114/76 (89) Room Air 03/02/19 16:45 71 18 112/74 (87) Room Air 03/02/19 16:30 75 18 112/69 (83) Room Air 03/02/19 16:15 85 18 117/70 (86) Room Air 03/02/19 16:00 36.0 76 18 110/79 (89) Room Air 03/02/19 15:45 75 18 109/75 (86) Room Air 03/02/19 15:30 85 18 116/76 (89) Room Air 03/02/19 15:15 83 18 113/74 (87) Room Air 03/02/19 15:00 83 18 114/69 (84) Room Air 03/02/19 14:45 111 18 106/70 (82) Room Air 03/02/19 14:30 80 18 108/68 (81) Room Air 03/02/19 14:18 35.7 76 18 115/72 (86) Room Air 03/02/19 14:00 81 18 112/69 (83) Room Air 03/02/19 13:45 71 18 110/63 (79) Room Air 03/02/19 13:30 81 18 114/71 (85) 100 Room Air 03/02/19 13:15 78 18 108/67 (81) 100 Room Air 03/02/19 13:00 77 18 109/68 (82) 100 Room Air 03/02/19 12:45 83 18 106/73 (84) 99 Room Air 03/02/19 12:30 76 18 104/67 (79) 100 Room Air 03/02/19 12:15 72 18 105/69 (81) 100 Room Air 03/02/19 12:00 36.2 76 18 109/70 (83) 99 Room Air 03/02/19 11:45 86 18 101/70 (80) 99 Room Air 03/02/19 11:30 86 18 111/71 (84) 99 Room Air 03/02/19 11:15 81 18 101/70 (80) 99 Room Air 03/02/19 11:00 90 18 100/68 (79) 99 Room Air 03/02/19 10:44 83 18 102/62 (75) 99 Room Air 03/02/19 10:40 110 18 94/57 (69) 100 Room Air 03/02/19 10:34 81 18 103/58 (73) 99 Room Air 03/02/19 10:28 105 18 105/59 (74) 99 Room Air 03/02/19 10:23 96 18 114/59 (77) 99 Room Air 03/02/19 10:20 99 18 112/54 (73) 99 Room Air 03/02/19 10:14 95 18 114/67 (83) 98 Room Air I & O 03/03/19 07:00 Intake Total 3129.6 ml Output Total 400 ml Balance 2729.6 ml Labs Laboratory Tests 03/02/19 12:45: Urine Color YELLOW, Urine Clarity CLEAR, Urine pH 7, Urine Specific [place] 1.015L, Urine Protein 1+H, Urine Glucose (UA) NEGATIVE, Urine Ketones NEGATIVE, Urine Nitrite NEGATIVE, Urine Bilirubin NEGATIVE, Urine Urobilinogen NORMAL, Urine Leukocyte Esterase NEGATIVE, Urine RBC (Auto) 2+H, Urine RBC 10-25H, Urine WBC RARE, Urine Squamous Epithelial Cells 5-10, Urine Crystals NONE, Urine Bacteria TRACE, Urine Casts NONE, Urine Mucus SMALLH, Urine Culture Indicated NO 03/03/19 06:52: White Blood Count 16.1H, Red Blood Count 2.49L, Hemoglobin 7.7#L, Hematocrit 24L , Mean Corpuscular Volume 95, Mean Corpuscular Hemoglobin 31, Mean Corpuscular Hemoglobin Concent 33, Red Cell Distribution Width 21.7H, Platelet Count 202, Mean Platelet Volume 10.0, Neutrophils (%) (Auto) 81H, Lymphocytes (%) (Auto) 11L, Monocytes (%) (Auto) 7, Eosinophils (%) (Auto) 0, Basophils (%) (Auto) 0, Neutrophils # (Auto) 13.1H, Lymphocytes # (Auto) 1.8, Monocytes # (Auto) 1.2H, Eosinophils # (Auto) 0.1, Basophils # (Auto) 0.0 ABEBE FULLER DO Mar 03, 2019 10:12 am
[2019-03-03] MEDS ORDERED: IBUP-844 PO (10:15)
[2019-03-03] MEDS ORDERED: ACET-77 PO (10:15)
[2019-03-03] MEDS ORDERED: DOCU100C37 PO (10:15)
[2019-03-03] MEDS ORDERED: OXC5T PO (10:15)
--- NOTE | 2019-03-03 10:19 | Short Stay Summary ---
Discharge Summary Hospital Course Was the Problem List Reviewed?: Yes Problems/Dx: (1) Vaginal after () Status: Resolved Assessment & Plan: DC home today (2) Previous section complicating Status: Resolved (3) Elective induction of labor planned Status: Resolved (4) 39 weeks gestation of Status: Resolved (5) Acute blood loss anemia Status: Acute Assessment & Plan: Transfuse 2 units PRBCs; iron replacement (6) Rh negative status during Status: Chronic Assessment & Plan: rhogam given Qualifiers: Qualified Codes: O26.893 - Other specified related conditions, third trimester; Z67.91 - Unspecified blood type, rh negative (7) Perineal laceration complicating delivery Status: Chronic Assessment & Plan: Stool softeners/instructions given Final Diagnosis: Prev ; TOLAC/; acute blood loss anemia Hospital Course Date of Admission: Mar 02, 2019 at 8:00 am Admission Diagnosis : Family Physician/Provider: Deleted Date of Discharge: 03/04/19 Discharge Diagnosis: /39 week acute blood loss anemia 2nd degree laceration Hospital Course: [ ] Labs and Pending Lab Test: Laboratory Tests 03/02/19 12:45: Urine Color YELLOW, Urine Clarity CLEAR, Urine pH 7, Urine Specific [place] 1.015L, Urine Protein 1+H, Urine Glucose (UA) NEGATIVE, Urine Ketones NEGATIVE, Urine Nitrite NEGATIVE, Urine Bilirubin NEGATIVE, Urine Urobilinogen NORMAL, U rine Leukocyte Esterase NEGATIVE, Urine RBC (Auto) 2+H, Urine RBC 10-25H, Urine WBC RARE, Urine Squamous Epithelial Cells 5-10, Urine Crystals NONE, Urine Bacteria TRACE, Urine Casts NONE, Urine Mucus SMALLH, Urine Culture Indicated NO 03/03/19 06:52: White Blood Count 16.1H, Red Blood Count 2.49L, Hemoglobin 7.7#L, Hematocrit 24L , Mean Corpuscular Volume 95, Mean Corpuscular Hemoglobin 31, Mean Corpuscular Hemoglobin Concent 33, Red Cell Distribution Width 21.7H, Platelet Count 202, Mean Platelet Volume 10.0, Neutrophils (%) (Auto) 81H, Lymphocytes (%) (Auto) 11L, Monocytes (%) (Auto) 7, Eosinophils (%) (Auto) 0, Basophils (%) (Auto) 0, Neutrophils # (Auto) 13.1H, Lymphocytes # (Auto) 1.8, Monocytes # (Auto) 1.2H, Eosinophils # (Auto) 0.1, Basophils # (Auto) 0.0 Home Meds Active Oxyir Tablet (Oxycodone HCl) 5 Mg Tab 5 Mg PO Q6H PRN Reported Xopenex Hfa (Levalbuterol Tartrate) 15 Gm Hfa.aer.ad 15 Gm INH PRN Zyrtec (Cetirizine HCl) 10 Mg Capsule 10 Mg PO Iron (Ferrous Gluconate) 256 Mg Tablet 256 Mg PO DAILY Prena1 Chew Tablet ( Vit#42/Fa Cmb#6) 1 Mg Tab.chew 1 Mg PO DAILY Assessment/Pt Instructions 1. Routine post 2. DC home after transfusion Follow up in 1-2 weeks for perineal exam and 6 weeks for exam Discharge Instructions Discharge Diet: No Restrictions Activity as Tolerated: Yes Discharge Physical Examination General Appearance: Alert, Oriented X3 Respiratory: Clear to Auscultation, Normal Air Movement Cardiovascular: Regular Rate, Normal S1, Normal S2 Abdominal: Normal Bowel Sounds Allergies: Coded Allergies: latex (Verified Allergy, Unknown, 10/02/10) Discharge Summary Date of Admission Mar 02, 2019 at 8:00 am Date of Discharge Clinical Quality Measures DVT/VTE Risk/Contraindication: Risk Factor Score Per Nursin RFS Level Per Nursing on Admit: 1=Low/No VTE PPX ABEBE FULLER DO Mar 03, 2019 10:19
[2019-03-03] MEDS ORDERED: diphenhydrAMINE 25 MG TAB (BENADRYL) PO PRN (10:45)
[2019-03-03] MEDS: ACETAMINOPHEN 500 MG TAB (TYLENOL) PO SCH ×2 (11:42→19:51)
[2019-03-03] MEDS ORDERED: NS IV 500 ML 500 ML ONE (12:41)
--- NOTE | 2019-03-03 12:45 | NUR ---
To room for blood admin, IV noted to be blown upon NS admin. IV restarted at this time.
--- NOTE | 2019-03-03 18:00 | NUR ---
Dr. Garcia contacted to clarify post blood admin hgb order and notify that pt desires to stay overnight. Order for H&H in am.
[2019-03-04] MEDS: IBUPROFEN 600 MG (MOTRIN) TAB PO SCH (01:46)
[2019-03-04 01:47] VITALS: BP 108/68
[2019-03-04] MEDS: ACETAMINOPHEN 500 MG TAB (TYLENOL) PO SCH ×2 (03:58→08:06)
[2019-03-04 07:23] LABS: HEMOGLOBIN 10.1 G/DL (11.5-16.0)
[2019-03-04] MEDS: CATHETER FLUSH 10 ML SYR IV SCH ×2 (07:40→07:53)
[2019-03-04 07:49] VITALS: BP 115/65
--- NOTE | 2019-03-04 07:49 | NUR ---
AM shift assessment completed and vital signs obtained, see interventions. Plan of care reviewed with patient. Patient verbalizes understanding and questions answered. Patient would like to shower at home after dismissal. Scheduled Colace, PNV, Iron, and Motrin PO given. Tucks and Dermoplast provided to patient along with extra pads and panties. Saline lock DC'd, tip intact. Band-aid applied to site.
[2019-03-04] MEDS: BENZOCAINE/MENTHOL (DERMOPLAST) 56 ML CAN TP PRN (07:51)
[2019-03-04] MEDS: WITCH HAZEL(TUCKS) 40 EA JAR TOP PRN (07:51)
[2019-03-04] MEDS: PRENATAL VITAMIN 1 EA TAB PO SCH (07:51)
[2019-03-04] MEDS: FERROUS SULF 325 MG (IRON) TAB PO SCH (07:52)
[2019-03-04] MEDS: DOCUSATE SODIUM 100 MG (COLACE) CAP PO SCH (07:52)
--- NOTE | 2019-03-04 08:09 | NUR ---
Dr. Garcia here to see patient. New orders received.
--- NOTE | 2019-03-04 08:17 | Postpartum Progress Note ---
Note Note Day # 2 s/p / 2nd degree laceration/PP Hemorrhage (s/p 2 units PRBCs) Subjective: Patient is without complaints. Ambulating, voiding. Tolerating a regular diet without nausea or vomiting. Normal lochia. Pain is well controlled with oral pain medications. Pumping colostrum to feed to baby, will stop after (surrogate) Objective: 03/04/19 01:47 Temp 36.7 Pulse 65 Resp 18 B/P (MAP) 108/68 (81) Pulse Ox 98 O2 Delivery Room Air Laboratory Tests Test 03/04/19 06:54 Range/Units Hemoglobin 10.1 #L 11.5-16.0 G/DL Hematocrit 31 L 35-52 % Physical Exam: General - Alert and oriented, no apparent distress Abdomen - Soft, appropriately tender to palpation, non-distended, fundus firm at umbilicus Extremities - no edema, negative Tommy's bilaterally Assessment: 1. post- day # 2, status post spontaneous vaginal delivery/. Recovering well, hemodynamically stable 2. acute blood loss anemia s/p 2 units; iron replaced 3. Rh negative - Rhogam given Plan: Routine care. Encourage breast feeding/pumping and then discussed options for discontinuation/ only pumping for colostrum; baby to be discharged to family. Encourage ambulation. Ferrous sulfate supplementation. Plan for discharge today Vitals - Labs Vital Signs - I&O Vital Signs Date Time Temp Pulse Resp B/P (MAP) Pulse Ox O2 Delivery O2 Flow Rate FiO2 03/04/19 01:47 36.7 65 18 108/68 (81) 98 Room Air 03/03/19 19:53 84 18 105/72 (83) 99 Room Air 03/03/19 17:35 36.7 73 18 102/65 100 Room Air 03/03/19 15:57 36.7 80 18 95/69 100 Room Air 03/03/19 15:44 36.8 75 18 103/73 100 Room Air 03/03/19 15:03 36.6 89 18 112/78 100 Room Air 03/03/19 14:26 36.7 88 18 96/64 (75) 99 Room Air 03/03/19 13:35 36.8 83 18 98/67 100 Room Air 03/03/19 13:20 36.7 88 18 101/63 100 Room Air Labs Laboratory Tests 03/04/19 06:54: Hemoglobin 10.1#L, Hematocrit 31L ABEBE FULLER DO Mar 04, 2019 08:17
--- NOTE | 2019-03-04 08:35 | NUR ---
Rhogam administered, see administration record. Card provided to patient.
--- NOTE | 2019-03-04 11:09 | NUR ---
Discharge instructions and medications reviewed with patient both written and verbally. Patient verbalizes understanding and questions answered. Written prescriptions provided to patient.
--- NOTE | 2019-03-04 11:16 | NUR ---
Patient discharged at thin time and ambulated down to awaiting private vehicle accompanied by this RN. No signs or symptoms of distress noted.
[2019-03-04] MEDS ORDERED: ACETAMINOPHEN 500 MG TAB (TYLENOL) PO SCH (12:00)
== END 2019-03-04 11:16 | disposition home or self-care (01) | DRG 806 ==
LOC: LDRP 08:00
PROVIDERS: ADMIT Obstetrics & Gynecology; ATTEND Obstetrics & Gynecology
PROC: 10E0XZZ Delivery of Products of Conception, External Approach (ICD-10-PCS; principal; 2019-03-02)
PROC: 0KQM0ZZ Repair Perineum Muscle, Open Approach (ICD-10-PCS; 2019-03-02)
PROC: 10907ZC Drainage of Amniotic Fluid, Therapeutic from Products of Conception, Via Natural or Artificial Opening (ICD-10-PCS; 2019-03-02)
DX: O34.211 Maternal care for low transverse scar from previous cesarean delivery (principal); O99.824 Streptococcus B carrier state complicating childbirth; O70.1 Second degree perineal laceration during delivery; O72.1 Other immediate postpartum hemorrhage; O69.81X0 Labor and delivery complicated by cord around neck, without compression, not applicable or unspecified; O90.81 Anemia of the puerperium; D62 Acute posthemorrhagic anemia; O99.52 Diseases of the respiratory system complicating childbirth; J45.909 Unspecified asthma, uncomplicated; O26.893 Other specified pregnancy related conditions, third trimester; Z67.21 Type B blood, Rh negative; Z3A.39 39 weeks gestation of pregnancy; Z37.0 Single live birth
CPT/HCPCS: 36415; 81000; 83033; 85014; 85018; 85025; 86850; 86870; 86900; 86901; 86920

== ENCOUNTER → 2019-03-28 | Outpatient (CLI) | payer OTHER ==
[~2019-03-28] MED LIST changes: +ACET-77 PO; +CETI10CA PO; +DOCU100C37 PO; +IBUP-844 PO; +NF-XOP-HFA INH
[2019-03-28 09:22] LABS: HEMOGLOBIN 13.1 G/DL (11.5-16.0); MEAN PLATELET VOLUME 8.9 FL (7.4-10.4); WHITE BLOOD COUNT 4.1 10^3/uL (4.3-11.0)
== END ==
LOC: LAB 09:10
PROVIDERS: ATTEND Obstetrics & Gynecology
DX: D62 Acute posthemorrhagic anemia (principal)
CPT/HCPCS: 36415; 85027

== ENCOUNTER → 2019-05-10 | Outpatient (CLI) | payer OTHER ==
[~2019-05-10] MED LIST changes: +CATHETER FLUSH 10 ML SYR IV PRN
--- NOTE | 2019-05-10 10:09 | Diagnostic Imaging Report ---
CLINICAL INDICATION: Patient with epigastric abdominal tenderness. COMPARISON: Right upper quadrant ultrasound dated 01/11/2019. PROCEDURE: The patient was administered 5.45 millicuries of technetium 99m Choletec. After 45 minutes of the images, one can of Ensure was drink followed by another 45 minutes of imaging. A nuclear medicine hepatobiliary scan with ejection fraction was performed. FINDINGS: There is prompt uptake and excretion of radiotracer by the liver. Activity is visible in the gallbladder by 15 minutes and the small bowel by 45 minutes. Ejection fraction of the gallbladder is calculated at 61% (normal >33%). The gallbladder visibly empties on the scans following the ingestion of Ensure. IMPRESSION: Normal hepatobiliary scan with normal gallbladder ejection fraction. There is no significant cystic duct or common bile duct obstruction. Dictated by: Dictated on workstation # [id number]
== END ==
LOC: CARD 07:35
PROVIDERS: ATTEND Surgery
DX: R10.816 Epigastric abdominal tenderness (principal)
CPT/HCPCS: 78227

== ENCOUNTER 2019-05-18 05:37 | Outpatient (CLI) | payer OTHER ==
[~2019-05-18] VITALS: Ht 157.5 cm; Wt 57.3 kg
[~2019-05-18 05:37] MED LIST changes: -CATHETER FLUSH 10 ML SYR IV PRN
[2019-05-22] MEDS ORDERED: ACHD5005 PO (14:21)
== END 2019-05-18 13:36 | disposition home or self-care (01) ==
LOC: PREOP 05:37
PROVIDERS: ATTEND Surgery
DX: Z01.818 Encounter for other preprocedural examination (principal)

== ENCOUNTER 2020-01-08 07:05 | Outpatient (RCR) | payer OTHER ==
--- NOTE | 2019-12-19 09:57 | Diagnostic Imaging Report ---
PROCEDURE: US Non-ob pelvis comp/trans. TECHNIQUE: Multiple realtime grayscale images were obtained of the pelvis in various projections endovaginally. Transabdominal imaging was also performed. INDICATION: IVF surveillance. FINDINGS: Uterus measures 6.7 x 4.9 x 5.4 cm. Endometrial stripe measures 1.03 cm. The right ovary measures 4 x 2 x 1.9 cm. There are at least 8 follicular cysts present, the largest measuring 6 x 6 mm. Smallest measures 3 x 4 mm. The left ovary measures 4.9 x 1.4 x 2 cm. There are at least 8 follicular cysts in the left ovary. Largest measuring approximately 7 x 3 mm with the smallest measuring 4 x 4 mm. There is a 6 x 4 mm cyst as well. There is no free fluid. There is normal blood flow to both ovaries. IMPRESSION: 1. Bilateral follicular cysts noted throughout both ovaries with size as reported above. Dictated by: Dictated on workstation # [id number]
--- NOTE | 2019-12-29 15:13 | Diagnostic Imaging Report ---
PROCEDURE: US non-OB transvaginal. TECHNIQUE: Multiple real-time grayscale images were obtained of the pelvis in various projections, endovaginally. INDICATION: Monitoring IVF cycle, follicular count. FINDINGS: Uterus measures 7.6 x 4.6 x 5.2 cm and appears retroverted. Endometrial thickness is 5 mm. Right ovary measures 2.5 x 4.1 x 1.8 cm and the left ovary measures 5.1 x 1.5 x 1.2 cm. There appear to be 5 follicles involving the right ovary, the largest is 9 mm in size, the smallest is 6 mm in size. Left ovary contains 7 follicles. Largest is 7 mm in size, smallest is 6 mm in size. No free fluid is identified. IMPRESSION: Bilateral ovarian follicles, as described. Dictated by: Dictated on workstation # [id number]
--- NOTE | 2020-01-05 09:10 | Diagnostic Imaging Report ---
PROCEDURE: US NONOB transvaginal. TECHNIQUE: Multiple real-time grayscale images were obtained of the pelvis in various projections endovaginally. INDICATION: Monitoring for IVF cycle. Uterus is retroverted measuring 8.1 x 5.0 x 5.8 cm. Endometrium is 18 mm in thickness. Right ovary measures 2.1 x 4.4 x 2.5 cm. Right ovary contains at least 13 follicles. These range in size from 6 to 9 mm. The left ovary measures 4.0 x 1.4 x 1.6 cm. There are at least 12 follicles present ranging in size from 6 to 10 mm. Trace free fluid is present. IMPRESSION: Bilateral ovarian follicles, as described. Dictated by: Dictated on workstation # [id number]
[~2020-01-08 07:05] MED LIST changes: -ACET-77 PO; +ACET-78 PO
--- NOTE | 2020-01-08 09:49 | Diagnostic Imaging Report ---
PROCEDURE: US NON-OB transvaginal. TECHNIQUE: Multiple Real-time grayscale images were obtained of the pelvis in various projections endovaginally. INDICATION: Monitoring IVF cycle. FINDINGS: The uterus is retroverted measuring 8.2 x 5.3 x 5.5 cm. The endometrium is approximately 20 mm in thickness. The right ovary measures 2.4 x 4.0 x 1.9 cm and the left ovary measures 5.3 x 1.6 x 1.5 cm. The right ovary contains at least 18 follicles ranging in size from 4 to 9 mm. The left ovary contains 8 follicles ranging in size from 6 to 9 mm. No free fluid is detected. IMPRESSION: Follicle count, as described. Dictated by: Dictated on workstation # [id number]
[2020-03-05] MEDS ORDERED: NF-VITD400 PO (07:58)
[2020-03-05] MEDS ORDERED: IBUP-1773 PO (09:09)
[2020-03-05] MEDS ORDERED: ACET-2267 PO (09:09)
[2020-03-05] MEDS ORDERED: OXC5T PO (09:09)
== END 2020-03-18 | disposition home or self-care (01) ==
LOC: RAD 07:05
PROVIDERS: ATTEND Obstetrics & Gynecology Reproductive Endocrinology
DX: Z31.83 Encounter for assisted reproductive fertility procedure cycle (principal); N83.02 Follicular cyst of left ovary; N83.01 Follicular cyst of right ovary
CPT/HCPCS: 36415; 76830; 76856; 82670; 84144

== ENCOUNTER 2020-01-23 06:34 | Outpatient (RCR) | payer OTHER ==
[2020-03-05] MEDS ORDERED: NF-VITD400 PO (07:58)
[2020-03-05] MEDS ORDERED: ACET-2267 PO (09:09)
[2020-03-05] MEDS ORDERED: OXC5T PO (09:09)
[2020-03-05] MEDS ORDERED: IBUP-1773 PO (09:09)
== END 2020-04-22 | disposition home or self-care (01) ==
LOC: LAB 06:34
PROVIDERS: ATTEND Obstetrics & Gynecology Reproductive Endocrinology
DX: Z32.00 Encounter for pregnancy test, result unknown (principal)
CPT/HCPCS: 36415; 82670; 84144; 84702

== ENCOUNTER → 2020-02-02 | Outpatient (CLI) | payer SELFPAY ==
--- NOTE | 2020-02-02 11:31 | Diagnostic Imaging Report ---
INDICATION: Evaluate viability. Uterus measures 8.2 x 5.9 x 5.7 cm. There is a very small intrauterine gestational sac. There appears to be a small yolk sac. No definite pole is seen at this time. Gestational sac dimensions are consistent with approximately 5 weeks 2 days. No denny-gestational sac hemorrhage is detected. Ovaries are unremarkable. No adnexal mass or free fluid is detected. IMPRESSION: Findings consistent with approximately 5 week 2 day intrauterine gestational sac. No pole is identified at this time, likely owing to very early gestation. Followup ultrasound and/or correlation with serial beta hCG levels could be performed to evaluate for viability. Dictated by: Dictated on workstation # [id number]
== END ==
LOC: RAD 09:33
PROVIDERS: ATTEND Obstetrics & Gynecology Reproductive Endocrinology
DX: O36.80X0 Pregnancy with inconclusive fetal viability, not applicable or unspecified (principal); Z3A.01 Less than 8 weeks gestation of pregnancy
CPT/HCPCS: 76817

== ENCOUNTER → 2020-02-06 | Outpatient (CLI) | payer SELFPAY ==
--- NOTE | 2020-02-06 12:17 | Diagnostic Imaging Report ---
EXAMINATION: Transvaginal pelvic ultrasound. INDICATION: . FINDINGS: The recent pelvic ultrasound exam of 02/02/2020 suggested a 5 weeks 2 days gestational sac within the uterus. There was no sign of an embryonic pole, however. On this exam, however, there is now a small embryonic pole present. The crown-rump length suggests the estimated gestational age is 6 weeks +/- 1 week. Embryonic heart motion was noted and a rate of 111 BPM was recorded. The amniotic fluid volume is within normal limits. At this time, it is not certain where the placenta will develop. There is no pelvic mass or free fluid collection noted. IMPRESSION: 1. There is a single live intrauterine of approximately 6 weeks gestation +/- 1 week. The EDC is October 01, 2020. 2. There are no obvious embryonic abnormalities evident. 3. There is no pelvic mass or free fluid collection noted. Dictated by: Dictated on workstation # [id number]
== END ==
LOC: RAD 07:23
PROVIDERS: ATTEND Obstetrics & Gynecology Reproductive Endocrinology
DX: Z34.91 Encounter for supervision of normal pregnancy, unspecified, first trimester (principal); Z3A.01 Less than 8 weeks gestation of pregnancy
CPT/HCPCS: 76817

== ENCOUNTER → 2020-02-14 | Outpatient (CLI) | payer SELFPAY ==
--- NOTE | 2020-02-14 10:54 | Diagnostic Imaging Report ---
INDICATION: Intrauterine . COMPARISON: Correlation is made with the recent ultrasound from 02/06/2020. FINDINGS: There is an intrauterine gestational sac containing a pole. The crown-rump length measurement is 8 mm, consistent with a 6 week 6 day gestation. heart rate was recorded at 134 BPM. There is an area of denny-gestational sac hemorrhage noted on today's study measuring 3.0 x 0.8 x 0.9 cm. The adnexa are unremarkable. IMPRESSION: Single live IUP of approximately 6 weeks 6 days gestational age. There has been development of a moderate sized subchorionic hemorrhage since the examination of 1 week earlier. Dictated by: Dictated on workstation # [id number]
== END ==
LOC: RAD 08:27
PROVIDERS: ATTEND Obstetrics & Gynecology Reproductive Endocrinology
DX: O09.811 Supervision of pregnancy resulting from assisted reproductive technology, first trimester (principal); Z3A.01 Less than 8 weeks gestation of pregnancy
CPT/HCPCS: 36415; 76817; 82670; 84144; 84702

== ENCOUNTER → 2020-02-28 | Outpatient (CLI) | payer SELFPAY ==
--- NOTE | 2020-02-28 11:40 | Diagnostic Imaging Report ---
INDICATION: IVF monitoring. Uterus measures 8.9 x 5.4 x 6.0 cm. There is an intrauterine gestational sac containing a pole. [place]-rump length measurement is 12 mm consistent with 7 weeks 3 days gestation. However, no heart motion was detected and findings are consistent with embryonic demise. Previously noted area of subchorionic hemorrhage is again noted. IMPRESSION: Findings consistent with approximately 7-8 week intrauterine embryonic demise. There is denny-gestational sac hemorrhage present. Dictated by: Dictated on workstation # [id number]
== END ==
LOC: RAD 09:30
PROVIDERS: ATTEND Obstetrics & Gynecology Reproductive Endocrinology
DX: O09.811 Supervision of pregnancy resulting from assisted reproductive technology, first trimester (principal); Z3A.01 Less than 8 weeks gestation of pregnancy
CPT/HCPCS: 76801; 76817

== ENCOUNTER 2020-03-01 07:53 | Outpatient (CLI) | payer SELFPAY ==
--- NOTE | 2020-03-05 08:58 | Progress Note-Pre Operative ---
Pre-Operative Progress Note H&P Reviewed The H&P was reviewed, patient examined and no changes noted. Date Seen by Provider: Mar 05, 2020 Time Seen by Provider: 08:45 Date H&P Reviewed: Mar 05, 2020 Time H&P Reviewed: 07:00 Pre-Operative Diagnosis: missed ABEBE FULLER DO Mar 05, 2020 08:58
[2020-03-05] MEDS ORDERED: D5 LR IV SOLUTION 1,000 ML IV SCH (09:06)
[2020-03-05] MEDS ORDERED: IBUP-1773 PO (09:09)
[2020-03-05] MEDS ORDERED: ACET-2267 PO (09:09)
[2020-03-05] MEDS ORDERED: OXC5T PO (09:09)
--- NOTE | 2020-03-05 09:12 | Discharge Inst-Women's Service ---
Discharge Inst-Women's Serv Depart Medication/Instructions New, Converted or Re-Newed RX: Other Instructions nothing in vagina until cleared no driving for 24 hours Call for fever over 101, foul vaginal discharge, bleeding > 1 pad per hour x 2 hours Final Diagnosis Missed /miscarriage Problems Reviewed?: Yes Consults/Follow Up Additional Follow Up: Yes (7-10 days) Activity Activity: Activity as Tolerated Driving Instructions: No Driving for 24 Hours NO SMOKING: NO SMOKING Nothing Inside Vagina: No Douching, No [place], No Tampons Diet Discharge Diet: No Restrictions Symptoms to Report to : Bleeding Excessive, Pain Increased, Fever Over 101 Degrees F, Vaginal Bleeding Increase, Cramps in Feet or Legs, Vaginal Discharge Foul For Any Problems or Questions: Contact Your Physician ABEBE FULLER DO Mar 05, 2020 09:12
[2020-03-05] MEDS ORDERED: KETOROLAC 30 MG/ML VIAL IVP ONE (09:15)
[2020-03-05] MEDS ORDERED: ONDANSETRON 4 MG/2 ML (SDV) Z0FRAN IVP PRN (09:15)
[2020-03-05] MEDS ORDERED: ACETAMINOPHEN 500 MG TAB (TYLENOL) PO PRN (09:15)
== END 2020-03-01 11:09 ==
LOC: PREOP 07:53
PROVIDERS: ATTEND Obstetrics & Gynecology
DX: Z01.818 Encounter for other preprocedural examination (principal); Z01.812 Encounter for preprocedural laboratory examination; O02.1 Missed abortion; Z20.828 Contact with and (suspected) exposure to other viral communicable diseases
CPT/HCPCS: 87635

== ENCOUNTER 2020-03-05 06:54 | Day surgery (SDC) | payer SELFPAY ==
[~2020-03-05] VITALS: Ht 157 cm; Wt 53.6 kg
[2020-03-05] VITALS (10 sets, daily range): BP systolic 84–128; BP diastolic 54–90
[2020-03-05] MEDS ORDERED: LACTATED RINGERS 1,000 ML IV PRN (07:01)
[2020-03-05] MEDS ORDERED: ceFAZolin INJECTION 1,000 MG in WATER (STERILE) FOR INJECTION 10 ML IV ONE (07:15)
[2020-03-05] MEDS ORDERED: metroNIDAZOLE 500MG/100ML IVPB 100 ML IV ONE (07:15)
[2020-03-05] MEDS ORDERED: ONDANSETRON 4 MG/2 ML (SDV) Z0FRAN ONE (07:24)
[2020-03-05] MEDS ORDERED: proPOfol 200 MG/20 ML (DIPRIVAN) VIAL IV ONE (07:24)
[2020-03-05] MEDS ORDERED: LIDOCAINE PF 2% 5 ML (XYLOCAINE) VIAL ONE (07:24)
[2020-03-05] MEDS ORDERED: SEVOFLURANE (ULTANE) 15 ML INHAL SOLN ONE (07:25)
[2020-03-05] MEDS ORDERED: fentaNYL INJECTION 100 MCG/2 ML AMP ONE (07:25)
[2020-03-05] MEDS ORDERED: MIDAZOLAM 2 MG/2 ML (VERSED) VIAL ONE (07:25)
[2020-03-05 07:42] LABS: HEMOGLOBIN 11.8 g/dL (11.5-16.0); WHITE BLOOD COUNT 4.5 10^3/uL (4.3-11.0)
[2020-03-05] MEDS ORDERED: NF-VITD400 PO (07:58)
[2020-03-05] MEDS ORDERED: IBUP-1773 PO (09:09)
[2020-03-05] MEDS ORDERED: ACET-2267 PO (09:09)
[2020-03-05] MEDS ORDERED: OXC5T PO (09:09)
--- NOTE | 2020-03-05 09:16 | Discharge Inst-Women's Service ---
Discharge Inst-Women's Serv Depart Medication/Instructions New, Converted or Re-Newed RX: RX on Chart Final Diagnosis missed Problems Reviewed?: Yes Consults/Follow Up Additional Follow Up: Yes Activity Activity: Activity as Tolerated Driving Instructions: No Driving for 24 Hours NO SMOKING: NO SMOKING Nothing Inside Vagina: No Douching, No [place], No Tampons Diet Discharge Diet: No Restrictions Symptoms to Report to : Swelling Increased, Bleeding Excessive, Pain Incre ased, Fever Over 101 Degrees F, Vaginal Bleeding Increase, Cramps in Feet or Legs, Vaginal Discharge Foul For Any Problems or Questions: Contact Your Physician ABEBE FULLER DO Mar 05, 2020 09:16
[2020-03-05] MEDS ORDERED: KETOROLAC 30 MG/ML VIAL ONE (09:32)
--- NOTE | 2020-03-05 09:36 | Operative Report ---
Operative Report Date of Procedure/Surgery Mar 05, 2020 Surgeon (s) ABEBE FULLER DO Hydrology Professor (s): NA Post-Operative Diagnosis Missed Procedure Performed suction dilation and curettage mini dose Rhogam Description of Procedure Anesthesia Type: General Estimated blood loss (mL): 100 Specimen(s) collected/removed products of conception Description of the Procedure With informed consent the patient was taken to the operating room where general anesthesia was found to be adequate. She was prepped and draped in the usual sterile fashion in the dorsolithotomy position. The bladder was drained of clear urine with a straight cath. A speculum was placed in the vagina and the cervix was grasped with a tenaculum. The uterus is retroverted and sounded to about 10 cm. The cervix was gently dilated with Perry dilators and then an 8 curved suction curette was inserted and a gently curette was done removing the products of conception. I then followed up with a sharp curette until a gritty texture was heard. I repeated the suction and there was minimal bleeding. The tenaculum was removed from the cervix and any bleeding was controlled with pressure from a ring forcep. The speculum was removed from the vagina. The patient was taken to recovery in a stable condition. Sponge, lap, and instrument counts were correct times 2. She is Rh negative so Rhogam mini dose (50 mcg) will be given. Findings of the Procedure moderate amounts of products of conception Allergies and Home Medications Allergies Coded Allergies: latex (Verified Allergy, Unknown, 10/02/10) Home Medications Acetaminophen 500 Mg Tablet, 1,000 MG PO Q8H Prescribed by: ABEBE FULLER on 03/05/20908 Cetirizine HCl 10 Mg Capsule, 10 MG PO DAILY, (Reported) Ibuprofen 600 Mg Tablet, 600 MG PO Q6H Prescribed by: ABEBE FULLER on 03/05/20908 Levalbuterol Tartrate 15 Gm Hfa.aer.ad, 15 GM INH for CONGESTION, (Reported) Oxycodone Hcl 5 Mg Tab, 5 MG PO Q4H Prescribed by: ABEBE FULLER on 03/05/20908 Patient Home Medication List Home Medication List Reviewed: Yes ABEBE FULLER DO Mar 05, 2020 09:36
[2020-03-05] MEDS ORDERED: MEPERIDINE (DEMEROL) INJ 50 MG/ML IVP ONE (09:45)
[2020-03-05] MEDS ORDERED: ONDANSETRON 4 MG/2 ML (SDV) Z0FRAN IVP PRN (09:45)
[2020-03-05] MEDS ORDERED: morphine INJ 10 MG/ML 1ML (SYR OR VIAL) IVP ONE (09:45)
[2020-03-05] MEDS ORDERED: ACETAMINOPHEN 500 MG TAB (TYLENOL) PO PRN (10:00)
--- NOTE | 2020-03-05 10:32 | Anesthesia-General Post-Op ---
General Patient Condition Mental Status/LOC: Same as Preop Cardiovascular: Satisfactory Nausea/Vomiting: Absent Respiratory: Satisfactory Pain: Controlled Complications: Absent Post Op Complications Complications None Follow Up Care/Instructions Patient Instructions None needed. Anesthesia/Patient Condition Patient Condition Patient is doing well, no complaints, stable vital signs, no apparent adverse anesthesia problems. No complications reported per nursing. MICHEAL KEVIN CRNA Mar 05, 2020 10:32
--- NOTE | 2020-03-05 10:35 | NUR ---
PATIENT RECEIVED RHOGAM IN THE RECOVERY ROOM.
[2020-03-05] MEDS ORDERED: oxyCODONE/APAP 5/325MG (PERCOCET 5) TABLET ONE (10:36)
[2020-03-05] MEDS ORDERED: oxyCODONE/APAP 5/325MG (PERCOCET 5) TABLET PO PRN (11:00)
[2020-03-05] MEDS ORDERED: IBUPROFEN 800 MG (MOTRIN) TAB PO SCH (12:00)
== END 2020-03-05 12:00 | disposition home or self-care (01) ==
LOC: SDC 06:54
PROVIDERS: ATTEND Obstetrics & Gynecology
DX: O02.1 Missed abortion (principal); Z91.048 Other nonmedicinal substance allergy status; Z80.0 Family history of malignant neoplasm of digestive organs; Z83.3 Family history of diabetes mellitus
CPT/HCPCS: 36415; 85027; 87081

== ENCOUNTER → 2020-09-23 | Outpatient (CLI) | payer OTHER ==
[~2020-09-23] MED LIST changes: +ACET-2267 PO; +IBUP-1773 PO; +NF-VITD400 PO
--- NOTE | 2020-09-23 14:21 | Diagnostic Imaging Report ---
PROCEDURE: US Non-ob pelvis comp/trans. INDICATION: ASSESS ENDOMETRIAL THICKNESS AND QUALITY, PRE-SURGICAL EVALUATION. TECHNIQUE: Multiple real time linton scale sonographic images were obtained of the pelvis transabdominally and endovaginally. CORRELATION STUDY: 12/19/2019 FINDINGS: UTERUS: 8.6 x 5.3 x 5.7 cm. Uterus is noted to be retroverted, otherwise unremarkable. ENDOMETRIUM: 11 mm. Small amount of fluid is noted within the endometrial canal consistent with current menstruation. RIGHT OVARY: 2.8 x 1.6 cm. At least 7 small follicles are present. The largest is measuring up to a nearly 1 cm in size. Blood flow is present. LEFT OVARY: 2.7 x 1.5 x 1.5 cm At least 5 follicles are present. The largest is up to 1 cm in size. Blood flow is present. No significant free pelvic fluid. IMPRESSION: 1. Unremarkable appearing pelvic ultrasound examination. Dictated by: Dictated on workstation # [id number]
== END ==
LOC: RAD 08:00
PROVIDERS: ATTEND Obstetrics & Gynecology Reproductive Endocrinology
DX: Z01.818 Encounter for other preprocedural examination (principal)
CPT/HCPCS: 76830; 76856

== ENCOUNTER → 2020-09-30 | Outpatient (CLI) | payer SELFPAY ==
--- NOTE | 2020-09-30 08:51 | Diagnostic Imaging Report ---
PROCEDURE: US NONOB transvaginal. TECHNIQUE: Multiple real-time grayscale images were obtained of the pelvis in various projections endovaginally. INDICATION: Dysfunctional uterine bleeding Uterus measures 8.2 x 5.1 x 5.3 cm. It is retroverted. Endometrial stripe is 1.4 cm. Ovaries are normal in size with multiple follicles present. Largest follicular cyst on left ovary measures 2 cm. Largest on the right measures 1 cm. IMPRESSION: Unremarkable pelvic sonogram.. Normal preovulatory endometrium. Dictated by: Dictated on workstation # [id number]
== END ==
LOC: RAD 08:00
PROVIDERS: ATTEND Obstetrics & Gynecology Reproductive Endocrinology
DX: Z31.9 Encounter for procreative management, unspecified (principal); N93.8 Other specified abnormal uterine and vaginal bleeding
CPT/HCPCS: 76830

== ENCOUNTER 2020-10-28 07:16 | Outpatient (RCR) | payer OTHER | END 2021-01-16 | disposition home or self-care (01) | LOC: LAB 07:16 | PROVIDERS: ATTEND Obstetrics & Gynecology Reproductive Endocrinology | DX: Z31.9 Encounter for procreative management, unspecified (principal) | CPT/HCPCS: 36415; 82670; 84144; 84702 ==

== ENCOUNTER 2020-11-04 07:01 | Outpatient (RCR) | payer OTHER | END 2021-02-02 | disposition home or self-care (01) | LOC: LAB 07:01 | PROVIDERS: ATTEND Obstetrics & Gynecology Reproductive Endocrinology | DX: Z31.9 Encounter for procreative management, unspecified (principal) | CPT/HCPCS: 36415; 82670; 84144 ==

== ENCOUNTER → 2020-11-04 | Outpatient (CLI) | payer OTHER ==
--- NOTE | 2020-11-04 08:46 | Diagnostic Imaging Report ---
INDICATION: Assess endometrial thickness and quality. Uterus measures 8.2 x 6.0 x 6.4 cm. There is intrauterine gestational sac containing a pole consistent with 6 weeks 5 days gestation. heart rate was recorded at 121 bpm. Endometrial thickness approximately 2.9 cm. No denny-gestational sac hemorrhage is detected. Right ovary measures 2.9 x 1.4 x 1.0 cm and left ovary measures 4.2 x 2.2 x 1.9 cm. The ovaries contain small follicles. No free fluid is seen. IMPRESSION: Single live IUP 6 weeks 5 days gestational age. Estimated date of confinement sonographically is 06/25/2021. Dictated by: Dictated on workstation # [id number]
== END ==
LOC: RAD 06:58
PROVIDERS: ATTEND Obstetrics & Gynecology Reproductive Endocrinology
DX: Z31.9 Encounter for procreative management, unspecified (principal); O26.891 Other specified pregnancy related conditions, first trimester; N85.8 Other specified noninflammatory disorders of uterus; Z3A.01 Less than 8 weeks gestation of pregnancy
CPT/HCPCS: 76801; 76817

== ENCOUNTER 2020-11-18 07:09 | Outpatient (RCR) | payer OTHER | END 2021-02-02 | disposition home or self-care (01) | LOC: RAD 07:09 | PROVIDERS: ATTEND Obstetrics & Gynecology Reproductive Endocrinology | DX: Z31.9 Encounter for procreative management, unspecified (principal) | CPT/HCPCS: 36415; 82670; 84144 ==

== ENCOUNTER → 2020-11-18 | Outpatient (CLI) | payer OTHER ==
--- NOTE | 2020-11-18 08:40 | Diagnostic Imaging Report ---
PROCEDURE: US OB SINGLE FETUS <14 WKS. TECHNIQUE: Multiple real-time grayscale images were obtained over the gravid uterus in various projections. INDICATION: Assess endometrial thickness. The uterus measures 11.2 x 7.7 x 7.8 cm. There is an intrauterine gestational sac containing a pole consistent with 9 weeks 1 day gestation. heart rate was recorded at 179 bpm. No denny-gestational sac hemorrhage is detected. The ovaries are unremarkable. No adnexal mass or free fluid is detected. IMPRESSION: Single live IUP approximately 9 weeks 1 day gestational age. Estimated date of confinement sonographically based on today's ultrasound is 06/22/2021. Dictated by: Dictated on workstation # [id number]
== END ==
LOC: RAD 07:50
PROVIDERS: ATTEND Obstetrics & Gynecology Reproductive Endocrinology
DX: Z34.91 Encounter for supervision of normal pregnancy, unspecified, first trimester (principal); Z31.9 Encounter for procreative management, unspecified; Z3A.09 9 weeks gestation of pregnancy
CPT/HCPCS: 76801

== ENCOUNTER → 2020-12-02 | Outpatient (CLI) | payer OTHER ==
--- NOTE | 2020-12-02 08:36 | Diagnostic Imaging Report ---
PROCEDURE: US OB SINGLE FETUS <14 WKS. TECHNIQUE: Multiple Real-time grayscale images were obtained over the gravid uterus in various projections. INDICATION: Evaluate endometrial thickness. FINDINGS: There is a single live fetus measuring 11 weeks 2 days gestational age. The heart rate was recorded at 167 BPM. The placenta appears to be developing posteriorly. The amniotic fluid volume is normal. No denny-gestational sac hemorrhage is detected. IMPRESSION: Single live IUP measuring 11 weeks 2 days gestational age demonstrating normal interval growth when compared with the prior ultrasound from 11/18/2020. No complicating features are detected. Dictated by: Dictated on workstation # [id number]
== END ==
LOC: RAD 07:17
PROVIDERS: ATTEND Obstetrics & Gynecology Reproductive Endocrinology
DX: Z31.9 Encounter for procreative management, unspecified (principal); Z34.91 Encounter for supervision of normal pregnancy, unspecified, first trimester; Z3A.11 11 weeks gestation of pregnancy
CPT/HCPCS: 36415; 76801; 82670; 84144

== ENCOUNTER 2021-01-17 08:00 | Outpatient (RCR) | payer OTHER | END 2021-04-17 | disposition home or self-care (01) | LOC: LAB 08:00 | PROVIDERS: ATTEND Obstetrics & Gynecology Reproductive Endocrinology | DX: Z31.9 Encounter for procreative management, unspecified (principal) ==

== ENCOUNTER 2021-02-03 08:00 | Outpatient (RCR) | payer OTHER ==
[2021-04-30] MEDS ORDERED: PREN-37 PO ×2 (14:32)
[2021-04-30] MEDS ORDERED: FERR-65 PO ×2 (14:32)
[2021-05-01] MEDS ORDERED: NIFE10CA44 PO ×2 (16:16)
== END 2021-05-04 | disposition home or self-care (01) ==
LOC: RAD 08:00
PROVIDERS: ATTEND Obstetrics & Gynecology Reproductive Endocrinology
DX: Z31.9 Encounter for procreative management, unspecified (principal)

== ENCOUNTER → 2021-02-04 | Outpatient (CLI) | payer OTHER ==
--- NOTE | 2021-02-04 17:57 | Diagnostic Imaging Report ---
INDICATION: patient, screening TECHNIQUE: Multiple real-time grayscale images were obtained over the gravid uterus. COMPARISON: None during this FINDINGS: A single live intrauterine fetus is seen measuring 20 weeks 4 days in size. The fetus is in breech presentation. Amniotic fluid is qualitatively normal. Placenta is anterior and grade 1 with no evidence of previa. heart rate is 1 53 bpm. Maternal adnexa appear unremarkable. Normal-appearing kidneys and bladder were seen. Normal-appearing stomach was seen. Intracranial ventricles were normal. Four-chamber heart view is unremarkable. Three-vessel cord and cord insertion appear normal. Views of the spine were unremarkable. Biometrical measurements are as follows: Biparietal 4.67 cm, age 20 weeks 1 days. Head circumference 17.48 cm, age 20 weeks 1 days. Abdominal circumference 16.27 cm, age 21 weeks 3 days. Femur length 3.23 cm, age 20 weeks 1 days. Sonographic estimate age: 20 weeks 4 days. Sonographic estimated date of delivery: 06/20/2021. Estimated Weight: 369 gm (+/- 54 gm). LMP percentile: 87%. heart rate: 153 beats per minute. number: 1 of 1. IMPRESSION: Single live intrauterine fetus measuring 20 weeks 4 days in size. There was no detectable abnormality. Dictated by: Dictated on workstation # [id number]
== END ==
LOC: RAD 15:15
PROVIDERS: ATTEND Obstetrics & Gynecology
DX: Z36.9 Encounter for antenatal screening, unspecified (principal)
CPT/HCPCS: 76805

== ENCOUNTER 2021-04-22 08:52 | Outpatient (CLI) | payer OTHER ==
[2021-04-22 09:00] VITALS: BP 102/65
[2021-04-22] MEDS ORDERED: IRON DEXTRAN 1,000 MG/NS 250 ML IVPB IV ONE ×2 (09:15)
[2021-04-22] MEDS ORDERED: IRON DEXTRAN 25 MG/NS 6.25 ML TOTAL VOLUME IV ONE ×3 (09:15)
== END 2021-04-22 11:15 | disposition home or self-care (01) ==
LOC: SDC 08:52
PROVIDERS: ATTEND Obstetrics & Gynecology
DX: Z01.89 Encounter for other specified special examinations (principal)
CPT/HCPCS: 96365

== ENCOUNTER 2021-04-30 13:47 | Observation (INO) | payer OTHER ==
[~2021-04-30] VITALS: Ht 157.5 cm; Wt 66.0 kg
[2021-04-30 14:01] VITALS: BP 115/74
[2021-04-30 14:03] LABS: BILIRUBIN,URINE NEGATIVE (NEGATIVE); CLARITY,URINE CLEAR; COLOR,URINE YELLOW; GLUCOSE, URINE (UA) NEGATIVE (NEGATIVE); KETONES,URINE 1+ (NEGATIVE); LEUKOCYTE ESTERASE ,URINE NEGATIVE (NEGATIVE); NITRITE,URINE NEGATIVE (NEGATIVE); PROTEIN,URINE NEGATIVE (NEGATIVE)
[2021-04-30 14:15] LABS: WBC,URINE RARE /HPF
[2021-04-30] MEDS ORDERED: NS IV 1000 ML 1,000 ML IV SCH (14:15)
[2021-04-30 14:16] LABS: BACTERIA,URINE NEGATIVE /HPF
[2021-04-30] MEDS ORDERED: ACETAMINOPHEN 500 MG TAB (TYLENOL) ONE (14:29)
[2021-04-30] MEDS ORDERED: ACETAMINOPHEN 500 MG TAB (TYLENOL) PO ONE (14:30)
[2021-04-30] MEDS ORDERED: PREN-37 PO ×2 (14:32)
[2021-04-30] MEDS ORDERED: FERR-65 PO ×2 (14:32)
[2021-04-30] MEDS ORDERED: TERBUTALINE INJ 1 MG/ML (BRETHINE) AMP ONE (15:41)
[2021-04-30] MEDS ORDERED: TERBUTALINE INJ 1 MG/ML (BRETHINE) AMP SC ONE (15:45)
[2021-04-30] MEDS: NS IV 1000 ML 1,000 ML IV SCH ×2 (15:46→23:03)
[2021-04-30] MEDS ORDERED: BETAMETHASONE ACE/NA PHOS 6 MG/ML (CELESTONE SOLUSPAN) ONE (15:52)
[2021-04-30] MEDS ORDERED: ZOLPIDEM 5 MG (AMBIEN) TAB ONE (20:45)
[2021-04-30] MEDS ORDERED: ZOLPIDEM 5 MG (AMBIEN) TAB PO ONE (21:00)
[2021-04-30 22:45] VITALS: BP 103/56
[2021-04-30 23:00] VITALS: BP 109/59
[2021-04-30] MEDS ORDERED: LACTATED RINGERS 500 ML IV SCH (23:00)
[2021-04-30] MEDS ORDERED: NIFEdipine 10 MG CAPS (WOMEN'S SERVICES ONLY!!!) PO ONE (23:00)
[2021-04-30 23:15] VITALS: BP 111/56
[2021-04-30 23:30] VITALS: BP 98/54
[2021-04-30 23:45] VITALS: BP 101/56
[2021-05-01] VITALS (19 sets, daily range): BP systolic 91–116; BP diastolic 51–65
[2021-05-01] MEDS: NIFEdipine 10 MG CAPS (WOMEN'S SERVICES ONLY!!!) PO SCH ×4 (03:05→15:19)
[2021-05-01] MEDS ORDERED: ACETAMINOPHEN 500 MG TAB (TYLENOL) ONE (03:35)
[2021-05-01] MEDS: ACETAMINOPHEN 500 MG TAB (TYLENOL) PO PRN ×2 (03:36→12:20)
[2021-05-01] MEDS: NS IV 1000 ML 1,000 ML IV SCH (06:50)
--- NOTE | 2021-05-01 07:43 | History & Physical-OB ---
OB - Chief Complaint & HPI Date/Time Date of Admission: Date of Admission: Date seen by a Provider: Apr 30, 2021 Time Seen by a Provider: 18:00 Chief Complaint/History OB-Reason for Admission/Chief: Labor Hx : 5 Hx Para: 3 Expected Date of Delivery: Jun 25, 2021 Gestational Age in Weeks: 32 Gestational Age in Days: 0 Allergies and Home Medications Allergies Coded Allergies: latex (Verified Allergy, Unknown, 10/02/10) Patient Home Medication List Home Medication List Reviewed: Yes Acetaminophen (Tylenol Extra Strength) 500 Mg Tablet, 1,000 MG PO Q8H Prescribed by: ABEBE FULLER on 03/05/20 09 Cetirizine HCl (Zyrtec) 10 Mg Capsule, 10 MG PO DAILY, (Reported) Entered as Reported by: СЕРГЕЙ JUNIOR on 03/02/19 1010 Last Action: Reviewed Ferrous Sulfate (Feosol) 325 Mg Tablet, 325 MG PO DAILY, (Reported) Entered as Reported by: ISIDRA JEAN BAPTISTE on 04/30/21 1432 Last Action: New Order Ibuprofen (Ibuprofen) 600 Mg Tablet, 600 MG PO Q6H Prescribed by: ABEBE FULLER on 03/05/20 09 Levalbuterol Tartrate (Xopenex Hfa) 15 Gm Hfa.aer.ad, 15 GM INH for CONGESTION, (Reported) Entered as Reported by: СЕРГЕЙ JUNIOR on 03/02/19 1013 Oxycodone Hcl (Oxyir Tablet) 5 Mg Tab, 5 MG PO Q4H Prescribed by: ABEBE FULLER on 03/05/20 09 Vit/Iron Fumarate/FA ( Tablet) 1 Each Tablet, 1 EACH PO DAILY, (Reported) Entered as Reported by: ISIDRA JEAN BAPTISTE on 04/30/21 143 Last Action: New Order Vitamin D (Vitamin D3) 10 Mcg Tablet, 400 MCG PO, (Reported) Entered as Reported by: WES HERRERA on 03/05/20 0758 OB - History Hx of Present Care: Yes Obstetrical History Hx : 5 Hx Para: 3 Hx Termination: No Hx Total # of Abortions (Spona: 1 Hx Multiple Gestation: No Hx Stillbirth: No Hx Complication: No Hx Induced Hypertens: No Hx Maternal Gestational Diabet: No Delivery History Hx Dystocia: No Hx Large For Gestational Age I: No Hx Small for Gestational Age I: No Hx Section: No Hx Vaginal Delivery Post C-Sec: No Hx Blood Disorders: No Adverse Rxn to Tranfusion: No (had transfusion after c/s ) Patient Past Medical History n/a Social History/Family History Alcohol Use: Denies Use Recreational Drug Use: No Immunizations Influenza Vaccine Up-to-Date: Yes; Up-to-Date Hepatitis A: No Hepatitis B: Yes Tetanus Booster (TDap): Less than 5yrs Date of Pneumonia Vaccine: October 21, 2010 OB - Admission Exam Physical Exam Vitals: Vital Signs 04/30/21 05/01/21 05/01/21 23:30 04:00 07:00 Temp 36.6 Pulse 96 Resp 18 B/P (MAP) 98/54 (69) Pulse Ox 97 O2 Delivery Room Air Labs Laboratory Tests Test 04/30/21 13:59 Range/Units Urine Color YELLOW Urine Clarity CLEAR Urine pH 6.0 5-9 Urine Specific [place] <=1.005 1.016-1.022 Urine Protein NEGATIVE NEGATIVE Urine Glucose (UA) NEGATIVE NEGATIVE Urine Ketones 1+ H NEGATIVE Urine Nitrite NEGATIVE NEGATIVE Urine Bilirubin NEGATIVE NEGATIVE Urine Urobilinogen 0.2 < = 1.0 MG/DL Urine Leukocyte Esterase NEGATIVE NEGATIVE Urine RBC (Auto) NEGATIVE NEGATIVE Urine RBC NONE /HPF Urine WBC RARE /HPF Urine Squamous Epithelial Cells 2-5 /HPF Urine Crystals NONE /LPF Urine Bacteria NEGATIVE /HPF Urine Casts NONE /LPF Urine Mucus NEGATIVE /LPF Urine Culture Indicated NO OB - Assessment/Plan/Diagnosis Assessment Assessment: IUP - , labor Admission Dx 32 week contractions previous section surrogate Admission Status: Observation Plan Plan: Expectant Management ABEBE FULLER DO May 01, 2021 07:43
--- NOTE | 2021-05-01 07:45 | Progress Note ---
Subjective Date Seen by a Provider: May 01, 2021 Time Seen by a Provider: 07:00 Subjective/Events-last exam started nifedipine last night for continued labor. Picked up again after 1 dose of terbutaline. She states she feels much better this morning. Still has some spotting with wiping. will plan to monitor today and continue Betamethasone. Will Likely DC home later today after 2nd dose of betamethasone Discussed post DC activity will be decreased including off work. Objective Exam Vital Signs Date Time Temp Pulse Resp B/P (MAP) Pulse Ox O2 Delivery O2 Flow Rate FiO2 05/01/21 07:00 96 18 98/54 (69) Room Air 05/01/21 06:00 96 18 98/54 (69) Room Air 05/01/21 05:00 110 18 91/52 (65) Room Air 05/01/21 04:00 36.6 103 18 93/52 (66) Room Air 05/01/21 03:00 36.6 103 18 93/52 (66) Room Air 05/01/21 02:00 104 18 101/56 (71) Room Air 05/01/21 01:00 104 18 101/56 (71) Room Air 05/01/21 00:30 110 18 99/55 (70) Room Air 05/01/21 00:00 111 18 107/51 (69) Room Air 04/30/21 23:45 112 18 101/56 (71) Room Air 04/30/21 23:30 113 18 98/54 (69) 97 Room Air 04/30/21 23:15 108 18 111/56 (74) 97 Room Air 04/30/21 23:00 105 18 109/59 (76) 96 Room Air 04/30/21 22:45 96 18 103/56 (72) 97 Room Air 04/30/21 20:00 36.8 04/30/21 14:01 36.8 117 18 98 Room Air Capillary Refill : Less Than 3 Seconds General Appearance: No Apparent Distress Results Lab Laboratory Tests 04/30/21 13:59: Urine Color YELLOW, Urine Clarity CLEAR, Urine pH 6.0, Urine Specific [place] <=1.005, Urine Protein NEGATIVE, Urine Glucose (UA) NEGATIVE, Urine Ketones 1+H, Urine Nitrite NEGATIVE, Urine Bilirubin NEGATIVE, Urine Urobilinogen 0.2, Urine Leukocyte Esterase NEGATIVE, Urine RBC (Auto) NEGATIVE, Urine RBC NONE, Urine WBC RARE, Urine Squamous Epithelial Cells 2-5, Urine Crystals NONE, Urine Bacteria NEGATIVE, Urine Casts NONE, Urine Mucus NEGATIVE, Urine Culture Indicated NO Assessment/Plan Assessment/Plan Assess & Plan/Chief Complaint 1 32 week gestation 2. labor 3. Previous section ABEBE FULLER DO May 01, 2021 07:45
[2021-05-01] MEDS ORDERED: BETAMETHASONE ACE/NA PHOS 6 MG/ML (CELESTONE SOLUSPAN) IM SCH ×2 (09:00→15:00)
[2021-05-01] MEDS ORDERED: NIFE10CA44 PO ×2 (16:16)
== END 2021-05-01 16:50 | disposition home or self-care (01) ==
LOC: WSo 13:47 → LDRP 13:48
PROVIDERS: ADMIT Obstetrics & Gynecology; ATTEND Obstetrics & Gynecology
DX: O60.03 Preterm labor without delivery, third trimester (principal); O34.218 Maternal care for other type scar from previous cesarean delivery; Z3A.32 32 weeks gestation of pregnancy; Z79.891 Long term (current) use of opiate analgesic; Z79.899 Other long term (current) drug therapy
CPT/HCPCS: 81000; G0378

== ENCOUNTER 2021-06-23 05:32 | Outpatient (CLI) | payer OTHER ==
[~2021-06-23] VITALS: Ht 157.5 cm; Wt 66.4 kg
[~2021-06-23 05:32] MED LIST changes: +FERR-65 PO; +NIFE10CA44 PO; +PREN-37 PO
== END 2021-06-23 11:25 | disposition home or self-care (01) ==
LOC: PREOP 05:32
PROVIDERS: ATTEND Obstetrics & Gynecology
DX: Z01.818 Encounter for other preprocedural examination (principal)

== ENCOUNTER 2021-06-25 05:55 | Inpatient (IN) | payer OTHER ==
[2021-06-25] VITALS (10 sets, daily range): BP systolic 100–133; BP diastolic 53–81
[~2021-06-25] VITALS: Ht 157.5 cm; Wt 66.9 kg
[2021-06-25] MEDS ORDERED: LACTATED RINGERS 1,000 ML IV SCH ×2 (06:15)
[2021-06-25] MEDS ORDERED: METOCLOPRAMIDE INJ 10 MG/2 ML (REGLAN) IV NR (06:30)
[2021-06-25] MEDS ORDERED: CITRIC ACID/SOB CIT (BICITRA) 30 ML UDC PO NR (06:30)
[2021-06-25] MEDS ORDERED: ceFAZolin 2 GM IV Premixed 50 ML IV NR (06:30)
[2021-06-25] MEDS ORDERED: FAMOTIDINE 20MG/2ML IV (PEPCID) IV NR (06:30)
--- NOTE | 2021-06-25 06:39 | History & Physical-OB ---
OB - Chief Complaint & HPI Date/Time Date of Admission: Date of Admission: Jun 25, 2021 at 05:55 Date seen by a Provider: Jun 25, 2021 Time Seen by a Provider: 07:15 Chief Complaint/History OB-Reason for Admission/Chief: Section Hx : 5 Hx Para: 3 Expected Date of Delivery: Jun 25, 2021 Gestational Age in Weeks: 40 Gestational Age in Days: 0 Indication for : desires repeat (History of , CS, now for repeat section. She has history of 4th degree laceration and PPH x 2 requiring transfusion. ) Admission Nurse Assessment Rev: Yes History of Labs B-/- HBsAg - HIV - Rub I VDRL NR GBS - Other complicated by labor with tocolysis at 33 weeks. Iron deficiency anemia treated with IV iron infusion. the patient is also a surrogate for parents that will be present at the delivery. Allergies and Home Medications Allergies Coded Allergies: latex (Verified Allergy, Unknown, 10/02/10) Patient Home Medication List Home Medication List Reviewed: Yes Cetirizine HCl (Zyrtec) 10 Mg Capsule, 10 MG PO DAILY, (Reported) Entered as Reported by: СЕРГЕЙ JUNIOR on 03/02/19 1010 Last Action: Reviewed Ferrous Sulfate (Feosol) 325 Mg Tablet, 325 MG PO DAILY, (Reported) Entered as Reported by: ISIDRA JEAN BAPTISTE on 04/30/21 1432 Last Action: Reviewed Levalbuterol Tartrate (Xopenex Hfa) 15 Gm Hfa.aer.ad, 15 GM INH for CONGESTION, (Reported) Entered as Reported by: СЕРГЙЕ JUNIOR on 03/02/19 1013 Last Action: Reviewed Vit/Iron Fumarate/FA ( Tablet) 1 Each Tablet, 1 EACH PO DAILY, (Reported) Entered as Reported by: ISIDRA JEAN BAPTISTE on 04/30/21 1432 Last Action: Reviewed Vitamin D (Vitamin D3) 10 Mcg Tablet, 400 MCG PO, (Reported) Entered as Reported by: WES HERRERA on 03/05/20 0758 Last Action: Reviewed Discontinued Medications Nifedipine (Nifedipine) 10 Mg Capsule, 20 MG PO Q4H Discontinued Reason: No Longer Taking Prescribed by: ABEBE FULLER on 05/01/21 1616 OB - History Hx of Present Ultrasounds: Normal mid trimester US Obstetrical Complications: None Medical Complications: None Information Induced Hypertension: No Maternal Gestational Diabetes: No Hemorrhage: Yes Obstetrical History Hx : 5 Hx Para: 3 Hx # Term Pregnancies: 3 Hx # Pregnancies: 0 Number of Living Children: 3 Hx Termination: No Hx Total # of Abortions (Spona: 1 Hx Multiple Gestation: No Hx Stillbirth: No Hx Complication: No Hx Induced Hypertens: No Hx Maternal Gestational Diabet: No Hx Hemorrhage: Yes Delivery History Hx Dystocia: Yes Hx Large For Gestational Age I: No Hx Small for Gestational Age I: Yes Hx Section: Yes Hx Vaginal Delivery Post C-Sec: Yes Hx Blood Disorders: No Adverse Rxn to Tranfusion: No (had transfusion after c/s ) Patient Past Medical History Histoyr of allergies CS x 1 x 1 cholecystectomy d&c Social History/Family History Alcohol Use: Denies Use Recreational Drug Use: No Smoking Cessation: Never smoker (s) 2nd Hand Smoke Exposure: No Immunizations Influenza Vaccine Up-to-Date: Yes; Up-to-Date First/Initial COVID19 Vaccine: 05/15/21 Second COVID19 Vaccination: 06/03/20 Hepatitis A: Yes Hepatitis B: Yes Tetanus Booster (TDap): Less than 5yrs (04/10/21) Date of Pneumonia Vaccine: October 21, 2010 Rubella: immune RPR/VDRL: Negative GBS Status: Negative HBsAG: Negative OB - Admission Exam Physical Exam HEENT: NCAT Heart: Rhythm Normal Lungs: Clear Abdomen: Gravid Extremities: Normal Cervical Dilatation: other (NE) Membranes: Intact Heart Rate: 140's Accelerations: Accelerations Present Decelerations: No Decelerations 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 (6-25) Contractions on Admission: None Labs Laboratory Tests Test 06/25/21 06:30 06/25/21 06:40 Range/Units Urine Color YELLOW Urine Clarity CLEAR Urine pH 6.0 5-9 Urine Specific [place] >=1.030 1.016-1.022 Urine Protein TRACE H NEGATIVE Urine Glucose (UA) NEGATIVE NEGATIVE Urine Ketones TRACE H NEGATIVE Urine Nitrite NEGATIVE NEGATIVE Urine Bilirubin 1+ H NEGATIVE Urine Urobilinogen 0.2 < = 1.0 MG/DL Urine Leukocyte Esterase 2+ H NEGATIVE Urine RBC (Auto) TRACE-I H NEGATIVE Urine RBC RARE /HPF Urine WBC >100 H /HPF Urine Squamous Epithelial Cells 25-50 H /HPF Urine Crystals PRESENT H /LPF Urine Calcium Oxalate Crystals FEW H /LPF Urine Bacteria MODERATE H /HPF Urine Casts NONE /LPF Urine Mucus NEGATIVE /LPF Urine Culture Indicated YES White Blood Count 6.7 4.3-11.0 10^3/uL Red Blood Count 3.80 3.80-5.11 10^6/uL Hemoglobin 11.9 11.5-16.0 g/dL Hematocrit 35 35-52 % Mean Corpuscular Volume 93 80-99 fL Mean Corpuscular Hemoglobin 31 25-34 pg Mean Corpuscular Hemoglobin Concent 34 32-36 g/dL Red Cell Distribution Width 18.4 H 10.0-14.5 % Platelet Count 217 130-400 10^3/uL Mean Platelet Volume 9.7 9.0-12.2 fL Immature Granulocyte % (Auto) 0 % Neutrophils (%) (Auto) 60 42-75 % Lymphocytes (%) (Auto) 25 12-44 % Monocytes (%) (Auto) 11 0-12 % Eosinophils (%) (Auto) 3 0-10 % Basophils (%) (Auto) 0 0-10 % Neutrophils # (Auto) 4.0 1.8-7.8 10^3/uL Lymphocytes # (Auto) 1.7 1.0-4.0 10^3/uL Monocytes # (Auto) 0.7 0.0-1.0 10^3/uL Eosinophils # (Auto) 0.2 0.0-0.3 10^3/uL Basophils # (Auto) 0.0 0.0-0.1 10^3/uL Immature Granulocyte # (Auto) 0.0 0.0-0.1 10^3/uL OB - Assessment/Plan/Diagnosis Assessment Assessment: section Admission Dx 40 week gestation history of previous section history of iron deficient anemia history of post hemorrhage history of History of 4th degree laceration Rh - Advanced maternal age surrogate Admission Status: Inpatient Order (span 2 midnights) Reason for Inpatient Admission: section Plan Plan: Section Other Plan Plan repeat section. Risks of bleeding, infection , injury to bowel, bladder, ureter, infant and surrounding structures. She has history of post hemorrhage and anemia, so will use prophylactic TXA. Also prophylactic antibiotics and SCDs/ proper consents have been obtained. Current hemoglobin is 11.9 ABEBE FULLER DO Jun 25, 2021 06:39
[2021-06-25 06:55] LABS: BASOPHILS % (AUTO) 0 % (0-10); EOSINOPHILS # (AUTO) 0.2 10^3/uL (0.0-0.3); EOSINOPHILS % (AUTO) 3 % (0-10); HEMATOCRIT 35 % (35-52); HEMOGLOBIN 11.9 g/dL (11.5-16.0); LYMPHOCYTES # (AUTO) 1.7 10^3/uL (1.0-4.0); LYMPHOCYTES % (AUTO) 25 % (12-44); MEAN CORPUSCULAR HEMOGLOBIN 31 pg (25-34); MEAN CORPUSCULAR HGB CONC 34 g/dL (32-36); MEAN CORPUSCULAR VOLUME 93 fL (80-99); MEAN PLATELET VOLUME 9.7 fL (9.0-12.2); MONOCYTES # (AUTO) 0.7 10^3/uL (0.0-1.0); MONOCYTES % (AUTO) 11 % (0-12); NEUTROPHILS % (AUTO) 60 % (42-75); PLATELET COUNT 217 10^3/uL (130-400); WHITE BLOOD COUNT 6.7 10^3/uL (4.3-11.0)
[2021-06-25 07:16] LABS: CLARITY,URINE CLEAR; COLOR,URINE YELLOW; GLUCOSE, URINE (UA) NEGATIVE (NEGATIVE); KETONES,URINE TRACE (NEGATIVE); LEUKOCYTE ESTERASE ,URINE 2+ (NEGATIVE); NITRITE,URINE NEGATIVE (NEGATIVE); PROTEIN,URINE TRACE (NEGATIVE)
[2021-06-25] MEDS ORDERED: fentaNYL INJ 100 MCG/2 ML AMP ONE (07:20)
[2021-06-25] MEDS ORDERED: OXYTOCIN PRE-MIX DRIP 1,000 ML IV ONE (07:21)
[2021-06-25] MEDS ORDERED: TRANEXAMIC ACID INJECTION 1,000 MG in NS (IVPB) 50 ML IV NR (07:30)
[2021-06-25 07:48] LABS: BACTERIA,URINE MODERATE /HPF; BILIRUBIN,URINE 1+ (NEGATIVE); CALCIUM OXALATE CRYSTALS,UR FEW /LPF; RBC,URINE RARE /HPF; SQUAMOUS EPITHELIAL CELL,UR 25-50 /HPF; WBC,URINE >100 /HPF
[2021-06-25] MEDS ORDERED: PHENYLEPHRINE 100 MCG/ML 10 ML (ANESTHESIA) SYR ONE (09:39)
[2021-06-25] MEDS ORDERED: TRANEXAMIC ACID 100 MG/ML 10 ML INJECTION ONE (09:51)
[2021-06-25] MEDS ORDERED: BUPIVACAINE 0.5% 30 ML (SENSORCAINE) VIAL ONE (10:09)
[2021-06-25] MEDS ORDERED: NALOXONE 0.4 MG/ML 1 ML (NARCAN) VIAL IV PRN (10:15)
[2021-06-25] MEDS ORDERED: TETANUS,DIPTH,PERTUSS P/F (BOOSTRIX) 0.5 ML VIAL IM SCH (10:15)
[2021-06-25] MEDS ORDERED: morphine INJ 4 MG/ML 1 ML (VIAL/SYRINGE) IV PRN (10:15)
[2021-06-25] MEDS ORDERED: MEASLES,MUMPS,RUBELLA 1 EA INJ SC SCH (10:15)
[2021-06-25] MEDS ORDERED: OXYTOCIN PRE-MIX DRIP 500 ML IV SCH (10:15)
--- NOTE | 2021-06-25 10:15 | Cesarean Section Operative ---
Procedure Procedure Note Pre-operative Diagnosis: Lazara Gary is a 35 /Para 5 / 3, Gestational Age 40 week gestation history of previous section history of iron deficient anemia history of post hemorrhage history of History of 4th degree laceration Rh - Advanced maternal age surrogate Post-operative Diagnosis: same OP presentation, nuchal cord x 2 with body cord Procedure: repeat low transverse section Physician: ABEBE FULLER Estimated blood loss: 600 mL Disposition: stable Findings: Viable female , Apgars 8/9, weight 8#6ounces, intact placenta, 3vc, normal appearing uterus, tubes, and ovaries. Indications:Lazara Gary is a 35 /Para 5 / 3,Gestational Age 40 week 40 week gestation history of previous section history of iron deficient anemia history of post hemorrhage history of History of 4th degree laceration Rh - Advanced maternal age surrogate presenting for repeat section. Procedure Details: The patient was seen in pre-op and the procedure was discussed with the patient in full, including the risks, benefits, and alternatives. All questions were answered. The patient was taken to the operating room and a time out was performed, verifying patient and procedure. After spinal anesthesia was placed by our anesthesia colleagues, the patient was placed in the dorsal supine with leftward tilt for uterine displacement.~ Her abdomen was then prepped and draped in the typical sterile fashion. A Pfannenstiel skin incision was made using a scalpel and carried down through the underlying fascia. The fascia was incised in the midline and tented up using Gustabo clamps. On both the inferior and superior fascia side the rectus muscle was dissected off bluntly and sharply using Chadwick scissors. The peritoneum was identified and entered bluntly in the midline. This was then stretched laterally using manual strength. After entering the abdominal cavity and confirming lack of intraperitoneal adhesions, a large Jelani retractor was placed and the lower uterine segment was visualized. TXA 1 gram was given IV~ A scalpel was utilized to make a low transverse uterine incision. Amniotomy was performed with an Allis clamp with return of clear fluid. The 's head was grasped and brought to the level of the incision. Fundal pressure was applied and was delivered without difficulty. Mouth and nares were suctioned with bulb suction. After the umbilical cord was clamped and cut, the infant was handed off to the pediatric staff. A sample of cord blood was then obtained. The placenta was delivered intact via uterine massage. The uterus was cleared of all clots and debris. The uterine incision was closed using 0 Vicryl in a running locked fashion. A second imbricated layer was placed using 0 Vicryl in a running fashion as well. The hysterotomy site was examined and hemostasis was observed. The bilateral tubes and ovaries appeared normal. The abdominal gutters were cleared of all clots and debris. A final check of the uterine incision showed it to be hemostatic. The peritoneum was closed using 3-0 Vicryl in a running fashion. The rectus muscles were loosely reapproximated with a stitch of 3-0 vicryl. The fascia was closed with 0 PDS in a running fashion. The subcutaneous space was hemostatic, and irrigated. The subcutaneous space was closed with 3-0 Vicryl in several single interrupted stitches. The skin was then closed using 4-0 Monocryl in a running subcuticular fashion. The skin edges were reapproximated together and were hemostatic. A pressure dressing was applied. All sponge, lap and needle counts were correct at the end of the procedure per nursing. Vitals - Labs Vital Signs - I&O Vital Signs Date Time Temp Pulse Resp B/P (MAP) Pulse Ox O2 Delivery O2 Flow Rate FiO2 06/25/21 08:30 Room Air 06/25/21 06:30 36.2 106 20 111/71 (84) 98 Room Air 06/25/21 06:27 36.2 106 20 98 Room Air Labs Laboratory Tests 06/25/21 06:30: Urine Color YELLOW, Urine Clarity CLEAR, Urine pH 6.0, Urine Specific [place] >=1.030, Urine Protein TRACEH, Urine Glucose (UA) NEGATIVE, Urine Ketones TRACEH , Urine Nitrite NEGATIVE, Urine Bilirubin 1+H, Urine Urobilinogen 0.2, Urine Leukocyte Esterase 2+H, Urine RBC (Auto) TRACE-IH, Urine RBC RARE, Urine WBC >100H, Urine Squamous Epithelial Cells 25-50H, Urine Crystals PRESENTH, Urine Calcium Oxalate Crystals FEWH, Urine Bacteria MODERATEH, Urine Casts NONE, Urine Mucus NEGATIVE, Urine Culture Indicated YES 06/25/21 06:40: White Blood Count 6.7, Red Blood Count 3.80, Hemoglobin 11.9, Hematocrit 35, Mean Corpuscular Volume 93, Mean Corpuscular Hemoglobin 31, Mean Corpuscular Hemoglobin Concent 34, Red Cell Distribution Width 18.4H, Platelet Count 217, Mean Platelet Volume 9.7, Immature Granulocyte % (Auto) 0, Neutrophils (%) (Auto) 60, Lymphocytes (%) (Auto) 25, Monocytes (%) (Auto) 11, Eosinophils (%) (Auto) 3, Basophils (%) (Auto) 0, Neutrophils # (Auto) 4.0, Lymphocytes # (Auto) 1.7, Monocytes # (Auto) 0.7, Eosinophils # (Auto) 0.2, Basophils # (Auto) 0.0, I mmature Granulocyte # (Auto) 0.0 ABEBE FULLER DO Jun 25, 2021 10:15
[2021-06-25] MEDS: KETOROLAC 30 MG/ML VIAL IV SCH ×2 (10:43→18:13)
[2021-06-25] MEDS ORDERED: METHYLERGONOVINE 0.2 MG/ML (METHERGINE) AMP ONE (12:19)
[2021-06-25] MEDS ORDERED: METHYLERGONOVINE 0.2 MG/ML (METHERGINE) AMP IM ONE (12:30)
[2021-06-25] MEDS: METHYLERGONOVINE 0.2 MG (MEHTERGINE) TAB PO SCH ×2 (13:21→18:23)
[2021-06-25] MEDS: ACETAMINOPHEN 500 MG TAB (TYLENOL) PO SCH ×2 (14:16→21:25)
[2021-06-25] MEDS: DOCUSATE SODIUM 100 MG (COLACE) CAP PO SCH (20:45)
[2021-06-25] MEDS: CATHETER FLUSH 10 ML SYR IV SCH (21:14)
[2021-06-26] MEDS: KETOROLAC 30 MG/ML VIAL IV SCH ×2 (00:35→06:36)
[2021-06-26] MEDS: METHYLERGONOVINE 0.2 MG (MEHTERGINE) TAB PO SCH ×4 (00:35→17:56)
[2021-06-26] MEDS: CATHETER FLUSH 10 ML SYR IV SCH ×2 (00:36→06:35)
[2021-06-26 00:39] VITALS: BP 115/72
[2021-06-26 03:39] VITALS: BP 106/67
[2021-06-26] MEDS: ACETAMINOPHEN 500 MG TAB (TYLENOL) PO SCH ×3 (06:36→22:29)
[2021-06-26] MEDS: FERROUS SULF 325 MG (IRON) TAB PO SCH (06:36)
[2021-06-26 06:44] LABS: BASOPHILS % (AUTO) 0 % (0-10); EOSINOPHILS # (AUTO) 0.2 10^3/uL (0.0-0.3); EOSINOPHILS % (AUTO) 2 % (0-10); HEMATOCRIT 33 % (35-52); HEMOGLOBIN 10.9 g/dL (11.5-16.0); LYMPHOCYTES # (AUTO) 1.6 10^3/uL (1.0-4.0); LYMPHOCYTES % (AUTO) 14 % (12-44); MEAN CORPUSCULAR HEMOGLOBIN 31 pg (25-34); MEAN CORPUSCULAR HGB CONC 33 g/dL (32-36); MEAN CORPUSCULAR VOLUME 95 fL (80-99); MEAN PLATELET VOLUME 9.9 fL (9.0-12.2); MONOCYTES # (AUTO) 0.9 10^3/uL (0.0-1.0); MONOCYTES % (AUTO) 8 % (0-12); NEUTROPHILS # (AUTO) 8.7 10^3/uL (1.8-7.8); NEUTROPHILS % (AUTO) 76 % (42-75); PLATELET COUNT 178 10^3/uL (130-400); WHITE BLOOD COUNT 11.5 10^3/uL (4.3-11.0)
[2021-06-26] MEDS: DOCUSATE SODIUM 100 MG (COLACE) CAP PO SCH ×2 (08:05→20:51)
[2021-06-26 08:07] VITALS: BP 110/70
--- NOTE | 2021-06-26 10:01 | Postpartum Progress Note ---
Note Note Day # 1 Subjective: Patient is without complaints. Ambulating, voiding. Tolerating a regular diet without nausea or vomiting. Normal lochia. Pain is well controlled with oral pain medications. She is passing flatus and elected to not breastfeed. Objective: VS - Last 72 Hours, by Label 06/25/21 06/25/21 06/25/21 06/25/21 06:27 06:30 08:30 10:26 Temp 36.2 36.2 Pulse 106 106 Resp 20 20 B/P (MAP) 111/71 (84) Pulse Ox 98 98 O2 Delivery Room Air Room Air Room Air Room Air 06/25/21 06/25/21 06/25/21 06/25/21 10:45 10:45 10:59 11:00 Temp 36.5 36.1 Resp 16 16 B/P (MAP) 109/79 (89) 103/81 (88) Pulse Ox 100 99 O2 Delivery Room Air Room Air Room Air Room Air 06/25/21 06/25/21 06/25/21 06/25/21 11:15 11:15 11:23 11:25 Temp 36.1 36.2 Resp 16 16 B/P (MAP) 101/53 (69) 100/74 (83) Pulse Ox 99 100 O2 Delivery Room Air Room Air Room Air Room Air 06/25/21 06/25/21 06/25/21 06/25/21 12:07 12:30 14:20 16:00 Temp 36.4 36.0 36.5 Pulse 59 66 62 Resp 16 16 18 B/P (MAP) 101/66 (78) 108/68 (81) 133/60 (84) Pulse Ox 100 100 96 O2 Delivery Room Air Room Air Room Air Room Air 06/25/21 06/26/21 06/26/21 06/26/21 20:45 00:39 03:39 08:07 Temp 35.9 36.2 35.9 36.1 Pulse 68 69 62 67 Resp 18 18 18 18 B/P (MAP) 121/77 (92) 115/72 (86) 106/67 (80) 110/70 (83) Pulse Ox 98 98 98 99 O2 Delivery Room Air Room Air Room Air Room Air Physical Exam: General - Alert and oriented, no apparent distress Abdomen - Soft, appropriately tender to palpation, non-distended, fundus firm at umbilicus Extremities - no edema, negative Tommy's bilaterally Assessment: Lazara Gary is a 35yo female who is POD day # 1, status post primary section due to h/o 4th degree laceration. She is also a surrogate mother for another couple. Recovering well, hemodynamically stable. Plan: Routine care. She is not and the parents are bottlefeeding their . Encouraged wearing tight bra to prevent let down. Encourage ambulation. Preop hgb 11.9 --> 10.9. Ferrous sulfate supplementation. Plan for discharge on POD#2, per discussion with patient. Vitals - Labs Vital Signs - I&O Vital Signs Date Time Temp Pulse Resp B/P (MAP) Pulse Ox O2 Delivery O2 Flow Rate FiO2 06/26/21 08:07 36.1 67 18 110/70 (83) 99 Room Air 06/26/21 03:39 35.9 62 18 106/67 (80) 98 Room Air 06/26/21 00:39 36.2 69 18 115/72 (86) 98 Room Air 06/25/21 20:45 35.9 68 18 121/77 (92) 98 Room Air 06/25/21 16:00 36.5 62 18 133/60 (84) 96 Room Air 06/25/21 14:20 Room Air 06/25/21 12:30 36.0 66 16 108/68 (81) 100 Room Air 06/25/21 12:07 36.4 59 16 101/66 (78) 100 Room Air 06/25/21 11:25 36.2 16 100/74 (83) 100 Room Air 06/25/21 11:23 Room Air 06/25/21 11:15 36.1 16 101/53 (69) 99 Room Air 06/25/21 11:15 Room Air 06/25/21 11:00 Room Air 06/25/21 10:59 36.1 16 103/81 (88) 99 Room Air 06/25/21 10:45 36.5 16 109/79 (89) 100 Room Air 06/25/21 10:45 Room Air 06/25/21 10:26 Room Air I & O 06/26/21 07:00 Intake Total 2890 ml Output Total 1400 ml Balance 1490 ml Labs Laboratory Tests 06/26/21 05:56: White Blood Count 11.5H, Red Blood Count 3.47L, Hemoglobin 10.9L, Hematocrit 33L , Mean Corpuscular Volume 95, Mean Corpuscular Hemoglobin 31, Mean Corpuscular Hemoglobin Concent 33, Red Cell Distribution Width 17.9H, Platelet Count 178, Mean Platelet Volume 9.9, Immature Granulocyte % (Auto) 1, Neutrophils (%) (Auto) 76H, Lymphocytes (%) (Auto) 14, Monocytes (%) (Auto) 8, Eosinophils (%) (Auto) 2, Basophils (%) (Auto) 0, Neutrophils # (Auto) 8.7H, Lymphocytes # (Auto) 1.6, Monocytes # (Auto) 0.9, Eosinophils # (Auto) 0.2, Basophils # (Auto) 0.0, Immature Granulocyte # (Auto) 0.1 JHOANA SAHNI MD Jun 26, 2021 10:01
[2021-06-26 11:45] VITALS: BP 123/81
[2021-06-26] MEDS: IBUPROFEN 600 MG (MOTRIN) TAB PO SCH ×3 (12:28→23:14)
--- NOTE | 2021-06-26 15:02 | Anesthesia-Regional Post-Op ---
Regional Patient Condition Mental Status: Alert, Oriented x3 Circulation: Same as Pre-Op Headache: Absent Sensation: Full Recovery Motor Block: Absent Post Op Complications Complications None Follow Up Care/Instructions Patient Instructions None needed. Anesthesia/Patient Condition Patient is doing well, no complaints, stable vital signs, no apparent adverse anesthesia problems. No complications reported per nursing. LAUREN HOOK CRNA Jun 26, 2021 15:02
[2021-06-26 17:58] VITALS: BP 119/76
[2021-06-26 23:14] VITALS: BP 108/70
[2021-06-27] MEDS: IBUPROFEN 600 MG (MOTRIN) TAB PO SCH ×2 (04:23→10:25)
[2021-06-27 06:53] VITALS: BP 122/65
[2021-06-27] MEDS: ACETAMINOPHEN 500 MG TAB (TYLENOL) PO SCH (06:53)
[2021-06-27] MEDS ORDERED: IBUP-844 PO (07:42)
[2021-06-27] MEDS ORDERED: ACET-93 PO (07:42)
[2021-06-27] MEDS ORDERED: DOCU100C37 PO (07:42)
--- NOTE | 2021-06-27 07:44 | Discharge Inst-Women's Service ---
Discharge Inst-Women's Serv Depart Medication/Instructions New, Converted or Re-Newed RX: Transmitted to Pharmacy (oxycodone previously transmitted) Final Diagnosis previous section history of pp hemorrhage antepartum anemia rh - history of labor Problems Reviewed?: Yes Consults/Follow Up Additional Follow Up: Yes (1 week and 6 week post ) Activity Activity: Activity as Tolerated Driving Instructions: No Driving for 1 Week NO SMOKING: NO SMOKING Nothing Inside Vagina: No Douching, No [place], No Tampons Diet Discharge Diet: No Restrictions (f) Symptoms to Report to : Swelling Increased, Bleeding Excessive, Pain Increased, Fever Over 101 Degrees F, Vaginal Bleeding Increase, Cramps in Feet or Legs, Vaginal Discharge Foul For Any Problems or Questions: Contact Your Physician Skin/Wound Care Infection Signs and Symptoms: Increased Redness, Foul Odor of Wound, Increased Drainage, Skin Itchy or Has a Rash, Increased Swelling, Temperature Above 101 F Operative Area Clean and Dry: Keep Incision Clean/Dry Stitches/Jordin/Dermabond: Dermabond Bathing Instructions: ABEBE Mckeon DO Jun 27, 2021 07:44
[2021-06-27 08:04] VITALS: BP 124/71
[2021-06-27] MEDS: FERROUS SULF 325 MG (IRON) TAB PO SCH (08:11)
[2021-06-27] MEDS: DOCUSATE SODIUM 100 MG (COLACE) CAP PO SCH (08:19)
--- NOTE | 2021-06-27 09:17 | Postpartum Progress Note ---
Post Op Post-operative Day #2 Subjective: Patient is without complaints. Ambulating, voiding. Tolerating a regular diet without nausea or vomiting. Normal lochia. Pain is well controlled with oral pain medications. Passing flatus. She is a surrogate mother and the parents have elected to bottlefeed. The patient is interested in discharge today. Objective: Please see below for vitals, which have been reviewed. Physical Exam: General - Alert and oriented, no apparent distress Abdomen - Soft, appropriately tender to palpation, non-distended, fundus firm at umbilicus Incision - Pfannenstiel incision clean, dry and intact with skin glue; no erythema or induration, no drainage Extremities - trace pitting edema, negative Tommy's bilaterally Assessment: Post-operative day #2, status post repeat section. Recovering well, hemodynamically stable Plan: Routine post-operative care. VTE prophylaxis: SCDs. Encourage ambulation. Ferrous sulfate supplementation. Plan for discharge today with plans for incision check in 1 week and PPD visit in 6 weeks. Vitals - Labs Vital Signs - I&O Vital Signs Date Time Temp Pulse Resp B/P (MAP) Pulse Ox O2 Delivery O2 Flow Rate FiO2 06/27/21 08:04 36.3 64 18 124/71 (88) 99 Room Air 06/27/21 06:53 36.0 69 18 122/65 (84) 98 Room Air 06/26/21 23:14 36.0 69 18 108/70 (83) 98 Room Air 06/26/21 17:58 36.1 61 18 119/76 (90) 98 Room Air 06/26/21 11:45 36.0 67 18 123/81 (95) 97 Room Air I & O 06/27/21 07:00 Intake Total 2080 ml Output Total 1300 ml Balance 780 ml Labs Microbiology 06/25/21 Urine Culture - Final, Complete Strep traceynosus JHOANA SAHNI MD Jun 27, 2021 09:17
[2021-06-27] MEDS ORDERED: ACET500P24 PO (09:22)
[2021-06-27] MEDS ORDERED: OXYC5CAP18 PO (09:22)
--- NOTE | 2021-06-27 09:45 | Short Stay Summary ---
Discharge Summary Hospital Course Was the Problem List Reviewed?: Yes Final Diagnosis: care following section Hospital Course Date of Admission: Jun 25, 2021 at 05:55 Admission Diagnosis : Family Physician/Provider: Soledad Knight DO Date of Discharge: 06/27/21 Discharge Diagnosis: [ ] Hospital Course: [ ] Labs and Pending Lab Test: Microbiology 06/25/21 Urine Culture - Final, Complete Strep anginosus Home Meds Active Tylenol Extra Strength (Acetaminophen) 500 Mg Powd.pack 1,000 Mg PO EVERY 8 HOUR S 7 Days Oxycodone HCl 5 Mg Capsule 5 Mg PO EVERY 4 HOURS PRN PRN 7 Days Docusate Sodium 100 Mg Capsule 100 Mg PO BID Acetaminophen 500 Mg Tablet 1,000 Mg PO Q8HR Ibu (Ibuprofen) 600 Mg Tablet 600 Mg PO Q6HR Reported Feosol (Ferrous Sulfate) 325 Mg Tablet 325 Mg PO DAILY Tablet ( Vit/Iron Fumarate/FA) 1 Each Tablet 1 Each PO DAILY Vitamin D3 (Vitamin D) 10 Mcg Tablet 400 Mcg PO Xopenex Hfa (Levalbuterol Tartrate) 15 Gm Hfa.aer.ad 15 Gm INH PRN Zyrtec (Cetirizine HCl) 10 Mg Capsule 10 Mg PO DAILY Assessment/Pt Instructions Discharge home today with plans for 1 week incision check and 6 weeks visit. Discharge Instructions Discharge Diet: No Restrictions (f) Activity as Tolerated: Yes Discharge Physical Examination Allergies: Coded Allergies: latex (Verified Allergy, Unknown, 10/02/10) Discharge Summary Date of Admission Jun 25, 2021 at 05:55 Date of Discharge Discharge Date: Jun 27, 2021 Discharge Time: 09:40 Admission Diagnosis History of csection Intrauterine at 40 weeks gestation History of 4th degree laceration Discharge Diagnosis care following section Surrogate mother (1) care following delivery (2) Previous section complicating Status: Resolved JHOANA SAHNI MD Jun 27, 2021 09:41
== END 2021-06-27 11:05 | disposition home or self-care (01) | DRG 788 ==
LOC: LDRP 05:55 → WS 13:45
PROVIDERS: ADMIT Obstetrics & Gynecology; ATTEND Obstetrics & Gynecology
PROC: 10D00Z1 Extraction of Products of Conception, Low, Open Approach (ICD-10-PCS; principal; 2021-06-25 09:31)
DX: O34.211 Maternal care for low transverse scar from previous cesarean delivery (principal); O64.0XX0 Obstructed labor due to incomplete rotation of fetal head, not applicable or unspecified; Z3A.40 40 weeks gestation of pregnancy; Z37.0 Single live birth; O69.81X0 Labor and delivery complicated by cord around neck, without compression, not applicable or unspecified
CPT/HCPCS: 36415; 81000; 83033; 85025; 86850; 86870; 86900; 86901; 87077; 87088; 94664

== ENCOUNTER 2021-08-04 13:14 | Observation (INO) | payer OTHER ==
[~2021-08-04] VITALS: Ht 157 cm; Wt 56.6 kg
[~2021-08-04 13:14] MED LIST changes: +ACET-93 PO; +ACET500P24 PO; +OXYC5CAP18 PO
[2021-08-04] MEDS ORDERED: NS IV 500 ML 500 ML ONE (13:35)
[2021-08-04] MEDS ORDERED: ONDANSETRON 4 MG/2 ML (SDV) Z0FRAN ONE (13:39)
[2021-08-04 13:44] LABS: BASOPHILS % (AUTO) 1 % (0-10); EOSINOPHILS # (AUTO) 0.2 10^3/uL (0.0-0.3); EOSINOPHILS % (AUTO) 2 % (0-10); HEMATOCRIT 39 % (35-52); HEMOGLOBIN 13.1 g/dL (11.5-16.0); LYMPHOCYTES # (AUTO) 1.7 10^3/uL (1.0-4.0); LYMPHOCYTES % (AUTO) 23 % (12-44); MEAN CORPUSCULAR HEMOGLOBIN 32 pg (25-34); MEAN CORPUSCULAR HGB CONC 33 g/dL (32-36); MEAN CORPUSCULAR VOLUME 95 fL (80-99); MEAN PLATELET VOLUME 9.4 fL (9.0-12.2); MONOCYTES # (AUTO) 0.4 10^3/uL (0.0-1.0); MONOCYTES % (AUTO) 5 % (0-12); NEUTROPHILS # (AUTO) 5.2 10^3/uL (1.8-7.8); NEUTROPHILS % (AUTO) 70 % (42-75); PLATELET COUNT 236 10^3/uL (130-400); WHITE BLOOD COUNT 7.4 10^3/uL (4.3-11.0)
--- NOTE | 2021-08-04 13:44 | ED GU-Female ---
General Chief Complaint: (<6 weeks) Stated Complaint: VAGINAL BLEEDING Source: patient Exam Limitations: no limitations History of Present Illness Date Seen by Provider: Aug 04, 2021 Time Seen by Provider: 13:26 Initial Comments Has notPatient to the ER with her sister and chief complaint that she started having heavy bleeding from the vagina this morning. She is been having some consistent light. Level bleeding post Jun [address] Fuller. She did have Methergine for hemorrhage and had to receive 2 units of blood before she went home. She went home with a hemoglobin of 9. She has a history of iron deficiency and had an iron infusion at the beginning of the and takes iron pills daily. She is a G5, P4 with 2 C-sections and one . She says a pad does not last more than a few minutes and she has a large depends diaper on which she is soaking through. She states she passed a large clot that was larger than her fist while she was at work and decided to go home and get cleaned up. She then became lightheaded and her sister brought her to the ER. She called Dr. Fuller's office who recommended she come here. The patient states anything in the vagina since the delivery and does not have vaginal intercourse. Allergies and Home Medications Allergies Coded Allergies: latex (Verified Allergy, Unknown, 10/02/10) Patient Home Medication List Home Medication List Reviewed: Yes Acetaminophen (Acetaminophen) 500 Mg Tablet, 1,000 MG PO Q8HR Prescribed by: ABEBE FULLER on 06/27/21 0742 Acetaminophen (Tylenol Extra Strength) 500 Mg Powd.pack, 1,000 MG PO every 8 hours Prescribed by: Alex Orona on 06/27/21 0922 Cetirizine HCl (Zyrtec) 10 Mg Capsule, 10 MG PO DAILY, (Reported) Entered as Reported by: СЕРГЕЙ JUNIOR on 03/02/19 1010 Docusate Sodium (Docusate Sodium) 100 Mg Capsule, 100 MG PO BID Prescribed by: ABEBE FULLER on 06/27/21 0742 Ferrous Sulfate (Feosol) 325 Mg Tablet, 325 MG PO DAILY, (Reported) Entered as Reported by: ISIDRA JEAN BAPTISTE on 04/30/21 1432 Ibuprofen (Ibu) 600 Mg Tablet, 600 MG PO Q6HR Prescribed by: ABEBE FULLER on 06/27/21 0742 Levalbuterol Tartrate (Xopenex Hfa) 15 Gm Hfa.aer.ad, 15 GM INH for CONGESTION, (Reported) Entered as Reported by: СЕРГЕЙ JUNIOR on 03/02/19 1013 Oxycodone HCl (Oxycodone HCl) 5 Mg Capsule, 5 MG PO every 4 hours PRN PRN for PAIN-SEVERE (8-10) Prescribed by: Alex Orona on 06/27/21 0923 Vit/Iron Fumarate/FA ( Tablet) 1 Each Tablet, 1 EACH PO DAILY, (Reported) Entered as Reported by: ISIDRA JEAN BAPTISTE on 04/30/21 1432 Vitamin D (Vitamin D3) 10 Mcg Tablet, 400 MCG PO, (Reported) Entered as Reported by: WES HERRERA on 03/05/20 0758 Review of Systems Review of Systems Constitutional: No chills, No fever EENTM: No ear discharge, No ear pain Respiratory: No cough Gastrointestinal: No abdominal pain, No constipation, No diarrhea; nausea; No vomiting Genitourinary: see HPI; denies dysuria Musculoskeletal: No back pain, No joint pain All Other Systemes Reviewed Negative Unless Noted: Yes Past Xlbkfwk-Epeigi-Nkizra Hx Patient Social History Tobacco Use?: No Use of E-Cig and/or Vaping dev: No Substance use?: No Immunizations Up To Date Tetanus Booster (TDap): Less than 5yrs PED Vaccines UTD: Yes First/Initial COVID19 Vaccinat: 05/15/21 Second COVID19 Vaccination Christiano: 06/03/20 Third COVID19 Vaccination Date: february 10, 2021 Seasonal Allergies Seasonal Allergies: Yes Past Medical History Surgeries: Yes (sinus sx, hand sx) Section, Orthopedic, Tonsillectomy Respiratory: Yes Asthma Currently Using CPAP: No Currently Using BIPAP: No Cardiac: No Neurological: No Reproductive Disorders: No Female Reproductive Disorders: Denies Sexually Transmitted Disease: No HIV/AIDS: No Genitourinary: No Gastrointestinal: Yes (elevate liver enzmes) Gall Bladder Disease Musculoskeletal: Yes Scoliosis Endocrine: No HEENT: No Loss of Vision: Denies Hearing Impairment: Denies Cancer: No Did You Recieve Any Treatments: No Psychosocial: No Integumentary: No Blood Disorders: No Adverse Reaction/Blood Tranf: No (had transfusion after c/s ) Family Medical History Family history: Cardiovascular disease 19 FATHER Family history: Coronary thrombosis 19 FATHER Family history: Diabetes mellitus G8 SISTER (HX OF GESTATIONAL DIABETES ) History of - anemia 19 MOTHER History of - disorder 19 MOTHER (FIBROMYALGIA) Hypercholesterolemia 19 FATHER 19 MOTHER No Family History of: Family history: Allergy Physical Exam Vital Signs Vital Signs - First Documented 08/04/21 13:20 Temp 36.9 Pulse 82 Resp 18 B/P (MAP) 137/76 (96) Pulse Ox 97 Capillary Refill : Height, Weight, BMI Height: 5'2.00" Weight: 140lbs. 0.0oz. [id number]; 26.96 BMI Method:Stated General Appearance: WD/WN, mild distress HEENT: PERRL/EOMI, pharynx normal Neck: full range of motion, normal inspection Cardiovascular: normal peripheral pulses, regular rate, rhythm Respiratory: no respiratory distress, no accessory muscle use Gastrointestinal: normal bowel sounds, non tender, soft Extremities: non-tender, normal inspection, normal capillary refill Neurologic/Psychiatric: alert, normal mood/affect, oriented x 3 Skin: normal color, warm/dry Progress/Results/Core Measures Suspected Sepsis SIRS Temperature: Pulse: Respiratory Rate: Laboratory Tests 08/04/21 13:30: White Blood Count 7.4 Blood Pressure / Mean: Laboratory Tests 08/04/21 13:30: Creatinine 1.04, Platelet Count 236, Total Bilirubin 0.4 Results/Orders Lab Results Laboratory Tests Test 08/04/21 13:30 08/04/21 15:23 Range/Units White Blood Count 7.4 4.3-11.0 10^3/uL Red Blood Count 4.15 3.80-5.11 10^6/uL Hemoglobin 13.1 11.5-16.0 g/dL Hematocrit 39 35-52 % Mean Corpuscular Volume 95 80-99 fL Mean Corpuscular Hemoglobin 32 25-34 pg Mean Corpuscular Hemoglobin Concent 33 32-36 g/dL Red Cell Distribution Width 14.1 10.0-14.5 % Platelet Count 236 130-400 10^3/uL Mean Platelet Volume 9.4 9.0-12.2 fL Immature Granulocyte % (Auto) 0 % Neutrophils (%) (Auto) 70 42-75 % Lymphocytes (%) (Auto) 23 12-44 % Monocytes (%) (Auto) 5 0-12 % Eosinophils (%) (Auto) 2 0-10 % Basophils (%) (Auto) 1 0-10 % Neutrophils # (Auto) 5.2 1.8-7.8 10^3/uL Lymphocytes # (Auto) 1.7 1.0-4.0 10^3/uL Monocytes # (Auto) 0.4 0.0-1.0 10^3/uL Eosinophils # (Auto) 0.2 0.0-0.3 10^3/uL Basophils # (Auto) 0.0 0.0-0.1 10^3/uL Immature Granulocyte # (Auto) 0.0 0.0-0.1 10^3/uL Sodium Level 138 135-145 MMOL/L Potassium Level 3.8 3.6-5.0 MMOL/L Chloride Level 105 98-107 MMOL/L Carbon Dioxide Level 19 L 21-32 MMOL/L Anion Gap 14 5-14 MMOL/L Blood Urea Nitrogen 12 7-18 MG/DL Creatinine 1.04 0.60-1.30 MG/DL Estimat Glomerular Filtration Rate 71 BUN/Creatinine Ratio 12 Glucose Level 93 70-105 MG/DL Calcium Level 9.6 8.5-10.1 MG/DL Corrected Calcium 8.5-10.1 MG/DL Total Bilirubin 0.4 0.1-1.0 MG/DL Aspartate Amino Transf (AST/SGOT) 19 5-34 U/L Alanine Aminotransferase (ALT/SGPT) 18 0-55 U/L Alkaline Phosphatase 63 40-136 U/L Total Protein 7.1 6.4-8.2 GM/DL Albumin 4.6 H 3.2-4.5 GM/DL My Orders Orders - JOSE JONES Ns Iv 500 Ml (Sodium Chloride 0.9%) (08/04/21 13:35) Ua Culture If Indicated (08/04/21 13:36) Orthostatic Vital Signs (Adult (08/04/21 13:36) Cbc With Automated Diff (08/04/21 13:36) Comprehensive Metabolic Panel (08/04/21 13:36) Type And Screen (08/04/21 13:36) Urine Bedside (08/04/21 13:36) Ondansetron Injection (Zofran Injectio (08/04/21 13:45) Ed Iv/Invasive Line Start (08/04/21 13:36) Ns Iv 500 Ml (Sodium Chloride 0.9%) (08/04/21 13:45) Ondansetron Injection (Zofran Injectio (08/04/21 13:39) Ed Iv/Invasive Line Start (08/04/21 15:15) Ns Iv 500 Ml (Sodium Chloride 0.9%) (08/04/21 15:15) Medications Given in ED Current Medications Medications Dose Ordered Sig/Edna Route Start Time Stop Time Status Last Admin Dose Admin Ondansetron HCl 8 mg ONCE ONCE IVP 08/04/21 13:45 08/04/21 13:46 DC 08/04/21 13:49 8 MG Sodium Chloride 500 ml @ 0 mls/hr Q0M ONCE IV 08/04/21 13:45 08/04/21 13:46 DC 08/04/21 13:45 0 MLS/HR Sodium Chloride 500 ml @ 0 mls/hr Q0M ONCE IV 08/04/21 15:15 08/04/21 15:16 DC 08/04/21 15:34 0 MLS/HR Vital Signs/I&O 08/04/21 08/04/21 13:20 15:19 Temp 36.9 Pulse 82 70 58 79 Resp 18 B/P (MAP) 137/76 (96) 111/67 (82) 114/73 (87) 113/75 (88) Pulse Ox 97 Capillary Refill : Progress Note #1: Time: 13:45 Progress Note Type and screen, orthostats, small aliquot of normal saline 500 cc to start. She is little dizzy but has normal vital signs. Blood pressure 130s and heart rate in the 70s. No chest pain or shortness of air. She does seem to be having significant amount of vaginal bleeding likely related to and will make contact with her quantitative analyst with her lab results. Progress Note #2: Time: 15:37 Progress Note Patient states her dizziness is not as pronounced after the first 500 cc of fluid. She would still feel more comfortable staying in the hospital overnight for some fluids and IV tranexamic acid. Consults Consults : Consulting Physician: ABEBE FULLER DO Consults Notes Discussed the case with Dr. Fuller, INFORMATION SERVICES VICE PRESIDENT who is fully with the patient. She states they just had their appointment last week. She says the hemoglobin is 11.9. She wants to start the patient on progestin and recommends TXA. If after her fluid bolus she still symptomatic then she would put her in on observation 1-1/2 times maintenance IV fluids and IV TXA. Otherwise oral 650x3. Departure Communication (Admissions) Time/Spoke to Admitting Phy: 15:45 Discussed the case with Dr. Fuller who agrees to observe the patient on 1-1/2 times maintenance IV fluids, 1 g IV tranexamic acid bolus and progestin. Impression Primary Impression: Vaginal bleeding, abnormal Disposition: ADMITTED INPATIENT Condition: Stable Admissions Decision to Admit Reason: Admit from ER (General) Decision to Admit/Date: Aug 04, 2021 Time/Decision to Admit Time: 15:35 Departure-Patient Inst. Referrals: DAVONTE BURGESS DO (PCP/Family) Primary Care Physician JOSE JONES Aug 04, 2021 13:44
[2021-08-04] MEDS ORDERED: ONDANSETRON 4 MG/2 ML (SDV) Z0FRAN IVP ONE (13:45)
[2021-08-04] MEDS ORDERED: NS IV 500 ML 500 ML IV ONE ×2 (13:45→15:15)
[2021-08-04 14:02] LABS: ALBUMIN 4.6 GM/DL (3.2-4.5)
[2021-08-04 14:03] LABS: CHLORIDE 105 MMOL/L (98-107); POTASSIUM 3.8 MMOL/L (3.6-5.0); SODIUM 138 MMOL/L (135-145)
[2021-08-04 14:04] LABS: CALCIUM 9.6 MG/DL (8.5-10.1)
[2021-08-04 14:05] LABS: GLUCOSE 93 MG/DL (70-105); TOTAL PROTEIN 7.1 GM/DL (6.4-8.2)
[2021-08-04 14:06] LABS: CARBON DIOXIDE 19 MMOL/L (21-32)
[2021-08-04 14:07] LABS: BILIRUBIN,TOTAL 0.4 MG/DL (0.1-1.0)
[2021-08-04 14:08] LABS: ALKALINE PHOSPHATASE 63 U/L (40-136)
[2021-08-04 14:09] LABS: CREATININE SERUM 1.04 MG/DL (0.60-1.30); GFR ESTIMATED 71
[2021-08-04 14:10] LABS: BUN/CREATININE RATIO 12
[2021-08-04 14:12] LABS: ALANINE AMINOTRANSFERASE 18 U/L (0-55)
[2021-08-04 15:19] VITALS: BP_SYST 111; BP_SYST 113; BP_SYST 114; BP_DIAS 67; BP_DIAS 73; BP_DIAS 75
[2021-08-04 15:30] LABS: BILIRUBIN,URINE NEGATIVE (NEGATIVE); CLARITY,URINE SL CLOUDY; COLOR,URINE YELLOW; GLUCOSE, URINE (UA) NEGATIVE (NEGATIVE); KETONES,URINE 1+ (NEGATIVE); LEUKOCYTE ESTERASE ,URINE NEGATIVE (NEGATIVE); NITRITE,URINE NEGATIVE (NEGATIVE); PROTEIN,URINE NEGATIVE (NEGATIVE)
[2021-08-04 15:36] LABS: BACTERIA,URINE NEGATIVE /HPF; RBC,URINE 50-100 /HPF
[2021-08-04] MEDS ORDERED: TRANEXAMIC ACID INJECTION 1,000 MG in NS (IVPB) 50 ML IV ONE (15:45)
[2021-08-04] MEDS ORDERED: LACTATED RINGERS 1,000 ML IV ONE ×2 (16:15→22:48)
[2021-08-04] MEDS ORDERED: PROMETHAZINE INJ 25 MG/ML (PHENERGAN) AMP IVP ONE (16:15)
[2021-08-04] MEDS ORDERED: NS (IVPB) 50 ML ONE (16:34)
[2021-08-04 17:00] VITALS: BP 119/66
[2021-08-04] MEDS ORDERED: medroxyPROGESTERone 10 MG (PROVERA) TAB PO NR (17:00)
[2021-08-04] MEDS ORDERED: ACETAMINOPHEN 500 MG TAB (TYLENOL) PO PRN (17:45)
[2021-08-04] MEDS ORDERED: KETOROLAC 30 MG/ML VIAL IVP PRN (17:45)
[2021-08-04] MEDS ORDERED: ZOLPIDEM 5 MG (AMBIEN) TAB PO PRN (17:45)
[2021-08-04 18:30] VITALS: BP 115/73
[2021-08-04 19:27] VITALS: BP 103/68
[2021-08-04] MEDS: medroxyPROGESTERone 10 MG (PROVERA) TAB PO SCH (20:43)
[2021-08-04 23:28] VITALS: BP 98/60
[2021-08-04] MEDS ORDERED: LACTATED RINGERS 1,000 ML IV SCH (23:30)
[2021-08-05 04:00] VITALS: BP 108/68
[2021-08-05 06:11] LABS: BASOPHILS % (AUTO) 0 % (0-10); EOSINOPHILS # (AUTO) 0.3 10^3/uL (0.0-0.3); EOSINOPHILS % (AUTO) 6 % (0-10); HEMATOCRIT 33 % (35-52); HEMOGLOBIN 10.6 g/dL (11.5-16.0); LYMPHOCYTES # (AUTO) 1.7 10^3/uL (1.0-4.0); LYMPHOCYTES % (AUTO) 34 % (12-44); MEAN CORPUSCULAR HEMOGLOBIN 31 pg (25-34); MEAN CORPUSCULAR HGB CONC 33 g/dL (32-36); MEAN CORPUSCULAR VOLUME 96 fL (80-99); MEAN PLATELET VOLUME 9.4 fL (9.0-12.2); MONOCYTES # (AUTO) 0.5 10^3/uL (0.0-1.0); MONOCYTES % (AUTO) 9 % (0-12); NEUTROPHILS # (AUTO) 2.5 10^3/uL (1.8-7.8); NEUTROPHILS % (AUTO) 50 % (42-75); PLATELET COUNT 182 10^3/uL (130-400)
[2021-08-05 06:30] LABS: POTASSIUM 4.1 MMOL/L (3.6-5.0)
[2021-08-05 06:31] LABS: CALCIUM 8.5 MG/DL (8.5-10.1)
[2021-08-05 06:36] LABS: CREATININE SERUM 0.83 MG/DL (0.60-1.30)
--- NOTE | 2021-08-05 07:11 | Short Stay Summary ---
[facility] 08/05/21 0711: History of Present Illness History of Present Illness Reason for visit/HPI Vaginal Bleeding HPI: 36 yo F with 2 C-sections and one that had called the clinic due to vaginal bleeding yesterday (08/04) and was instructed to go to the ED. Patient had been having consistent light bleeding but became heavy on the morning of the . Patient reports that a pad only lasts for a few minutes and has had to switch to a large Depends diaper. States that she still soaks through this diaper. Patient is known by Dr. Fuller for on June 14. She continues to take vitamins and Iron pills due to her history of iron deficiency. During her ED encounter, she continued to feel as if she was going to pass out, causing difficulty to get orthostatic blood pressure measurements. Intial hemoglobin was 13.1 and is currently 10.6 after 4260 mL of fluids (IV and PO intake). Patient was placed on 3rd floor for observation. This morning, patient states that her symptoms of dizziness and nausea have significantly improved. She has ambulated, and has not passed out. Bleeding has stopped Date of Admission Aug 04, 2021 at 14:45 Date of Discharge 08/05/2021 Time Seen by Provider: 07:30 Attending Physician Brooke Fuller DO Admitting Physician Soledad Knight DO Consult BROOKE FULLER DO Allergies and Home Medications Allergies Coded Allergies: latex (Verified Allergy, Unknown, 10/02/10) Patient Home Medication List Home Medication List Reviewed: Yes Cetirizine HCl (Zyrtec) 10 Mg Capsule, 10 MG PO DAILY, (Reported) Entered as Reported by: СЕРГЕЙ JUNIOR on 03/02/19 1010 Last Action: Reviewed Ferrous Sulfate (Feosol) 325 Mg Tablet, 325 MG PO DAILY, (Reported) Entered as Reported by: ISIDRA JEAN BAPTISTE on 04/30/21 1432 Last Action: Reviewed Levalbuterol Tartrate (Xopenex Hfa) 15 Gm Hfa.aer.ad, 15 GM INH for CONGESTION, (Reported) Entered as Reported by: СЕРГЕЙ JUNIOR on 03/02/19 1013 Last Action: Reviewed Medroxyprogesterone Acetate (Medroxyprogesterone Acetate) 10 Mg Tablet, 10 MG PO TID Prescribed by: BROOKE FULLER on 08/05/2134 Vit/Iron Fumarate/FA ( Tablet) 1 Each Tablet, 1 EACH PO DAILY, (Reported) Entered as Reported by: ISIDRA JEAN BAPTISTE on 04/30/21 1432 Last Action: Reviewed Discontinued Medications Acetaminophen (Acetaminophen) 500 Mg Tablet, 1,000 MG PO Q8HR Discontinued Reason: No Longer Taking Prescribed by: BROOKE FULLER on 06/27/21741 Last Action: Discontinued Acetaminophen (Tylenol Extra Strength) 500 Mg Powd.pack, 1,000 MG PO every 8 hours Discontinued Reason: No Longer Taking Prescribed by: Alex Orona on 06/27/21921 Last Action: Discontinued Docusate Sodium (Docusate Sodium) 100 Mg Capsule, 100 MG PO BID Discontinued Reason: No Longer Taking Prescribed by: BROOKE FULLER on 06/27/21741 Last Action: Discontinued Ibuprofen (Ibu) 600 Mg Tablet, 600 MG PO Q6HR Discontinued Reason: No Longer Taking Prescribed by: BROOKE FULLER on 06/27/21741 Last Action: Discontinued Oxycodone HCl (Oxycodone HCl) 5 Mg Capsule, 5 MG PO every 4 hours PRN PRN for PAIN-SEVERE (8-10) Discontinued Reason: No Longer Taking Prescribed by: Alex Orona on 06/27/21922 Last Action: Discontinued Vitamin D (Vitamin D3) 10 Mcg Tablet, 400 MCG PO, (Reported) Discontinued Reason: No Longer Taking Entered as Reported by: WES HERRERA on 03/05/20 0758 Last Action: Discontinued Past Ymcvnwa-Fligls-Myudip Hx Patient Social History Employed/Student: employed Smoking Status: Never a Smoker 2nd Hand Smoke Exposure: No Recent Hopitalizations: No Have you traveled recently?: No Alcohol Use?: No Pt feels they are or have been: No Immunizations Up To Date Tetanus Booster (TDap): Less than 5yrs Pediatric: Yes Date of Pneumonia Vaccine: October 21, 2010 Date of Influenza Vaccine: Feb 10, 2021 Seasonal Allergies Seasonal Allergies: Yes Surgeries Yes (sinus sx, hand sx) Section (x2), Orthopedic, Tonsillectomy Respiratory Yes Currently Using CPAP: No Currently Using BIPAP: No Cardiovascular No Neurological No Reproductive System Hx Reproductive Disorders: No Sexually Transmitted Disease: No HIV/AIDS: No Female Reproductive Disorders: Denies Genitourinary No Gastrointestinal Yes (elevate liver enzmes) Gall Bladder Disease Musculoskeletal Yes Scoliosis Endocrine History of Endocrine Disorders: No HEENT History of HEENT Disorders: No Loss of Vision: Denies Hearing Impairment: Denies Cancer No Did You Recieve Any Treatments: No Psychosocial History of Psychiatric Problem: No Integumentary History of Skin or Integumenta: No Blood Transfusions History of Blood Disorders: No Adverse Reaction to a Blood Tr: No (had transfusion after c/s ) Family Medical History Family Hx: Family history: Cardiovascular disease 19 FATHER Family history: Coronary thrombosis 19 FATHER Family history: Diabetes mellitus G8 SISTER (HX OF GESTATIONAL DIABETES ) History of - anemia 19 MOTHER History of - disorder 19 MOTHER (FIBROMYALGIA) Hypercholesterolemia 19 FATHER 19 MOTHER No Family History of: Family history: Allergy Review of Systems Constitutional: No chills; dizziness; No fever EENTM: No blurred vision, No double vision Respiratory: No cough, No dyspnea on exertion Cardiovascular: No chest pain, No palpitations Gastrointestinal: No abdominal pain; nausea : No Skin: change in color Psychiatric/Neurological: Headache (Chronic) Vaginal Bleeding Physical Exam Vital Signs Vital Signs - First Documented 08/04/21 13:20 Temp 36.9 Pulse 82 Resp 18 B/P (MAP) 137/76 (96) Pulse Ox 97 Capillary Refill : Less Than 3 Seconds Height, Weight, BMI Height: 5'2.00" Weight: 140lbs. 0.0oz. 63.945856mi; 22.96 BMI Method:Stated General Appearance: No Apparent Distress, WD/WN, Other (Pale but improved from yesterday) Eyes: Bilateral Eye PERRL, Bilateral Eye EOMI, Bilateral Eye Conjunctivae Pale (improved from yesterday) HEENT: PERRL/EOMI, Moist Mucous Membranes Respiratory: Lungs Clear, Normal Breath Sounds, No Accessory Muscle Use, No Respiratory Distress Cardiovascular: Regular Rate, Rhythm, No Murmur, Normal Peripheral Pulses (2+ radial pulses bilaterally) Gastrointestinal: Non Tender, Soft, Other (Healing incision consistent with C- section) Extremity: No Calf Tenderness, Other (Extremeties minimal edema) Neurologic/Psychiatric: Alert, Oriented x3 Skin: Warm/Dry, Pallor (but improved) Short Stay Diagnosis Discharge Diagnosis-Short Stay Admission Diagnosis: Vaginal bleeding Final Discharge Diagnosis: Uterine Bleeding Conclusion Labs Laboratory Tests 08/04/21 13:30: White Blood Count 7.4, Red Blood Count 4.15, Hemoglobin 13.1, Hematocrit 39, Mean Corpuscular Volume 95, Mean Corpuscular Hemoglobin 32, Mean Corpuscular Hemoglobin Concent 33, Red Cell Distribution Width 14.1, Platelet Count 236, Mean Platelet Volume 9.4, Immature Granulocyte % (Auto) 0, Neutrophils (%) (Auto) 70, Lymphocytes (%) (Auto) 23, Monocytes (%) (Auto) 5, Eosinophils (%) (Auto) 2, Basophils (%) (Auto) 1, Neutrophils # (Auto) 5.2, Lymphocytes # (Auto) 1.7, Monocytes # (Auto) 0.4, Eosinophils # (Auto) 0.2, Basophils # (Auto) 0.0, Immature Granulocyte # (Auto) 0.0, Sodium Level 138, Potassium Level 3.8, Chloride Level 105, Carbon Dioxide Level 19L, Anion Gap 14, Blood Urea Nitrogen 12, Creatinine 1.04, Estimat Glomerular Filtration Rate 71, BUN/Creatinine Ratio 12, Glucose Level 93, Calcium Level 9.6, Corrected Calcium , Total Bilirubin 0.4, Aspartate Amino Transf (AST/SGOT) 19, Alanine Aminotransferase (ALT/SGPT) 18, Alkaline Phosphatase 63, Total Protein 7.1, Albumin 4.6H 08/04/21 15:23: Urine Color YELLOW, Urine Clarity SL CLOUDY, Urine pH 6.0, Urine Specific [place] 1.025H, Urine Protein NEGATIVE, Urine Glucose (UA) NEGATIVE, Urine Ketones 1+H, Urine Nitrite NEGATIVE, Urine Bilirubin NEGATIVE, Urine Urobilinogen 0.2, Urine Leukocyte Esterase NEGATIVE, Urine RBC (Auto) 3+H, Urine RBC 50-100H, Urine WBC NONE, Urine Crystals NONE, Urine Bacteria NEGATIVE, Urine Casts NONE, Urine Mucus NEGATIVE, Urine Culture Indicated NO 08/05/21 06:05: White Blood Count 5.0, Red Blood Count 3.39L, Hemoglobin 10.6L, Hematocrit 33L, Mean Corpuscular Volume 96, Mean Corpuscular Hemoglobin 31, Mean Corpuscular Hemoglobin Concent 33, Red Cell Distribution Width 14.5, Platelet Count 182, Mean Platelet Volume 9.4, Immature Granulocyte % (Auto) 0, Neutrophils (%) (Auto) 50, Lymphocytes (%) (Auto) 34, Monocytes (%) (Auto) 9, Eosinophils (%) (Auto) 6, Basophils (%) (Auto) 0, Neutrophils # (Auto) 2.5, Lymphocytes # (Auto) 1.7, Monocytes # (Auto) 0.5, Eosinophils # (Auto) 0.3, Basophils # (Auto) 0.0, Immature Granulocyte # (Auto) 0.0, Sodium Level 139, Potassium Level 4.1, Chloride Level 111H, Carbon Dioxide Level 19L, Anion Gap 9, Blood Urea Nitrogen 12, Creatinine 0.83, Estimat Glomerular Filtration Rate 94, BUN/Creatinine Ratio 14, Glucose Level 92, Calcium Level 8.5 Conclusion/Plan Uterine bleeding - will continue the progesterone for one more day then switch over to OCP - Discharge today - Continue Iron supplementation - if symptoms return, come back to the ED for continued care BROOKE FULLER DO 08/06/21 4059: History of Present Illness History of Present Illness Reason for visit/HPI Vaginal hemorrhage Lazara is 6 weeks post s/p RLTCS. She was seen for pp exam last week but had not yet started menses. She was given Rx for OCPs but had not yet started those. She presented to ED with complaint of heavy vaginal bleeding with large clots and near syncope. She has a history of anemia during requiring iron transfusion and she was concerned about the amount of bleeding. In the Ed. Hgb was 13 and vitals were stable but she was very symptomatic (dizzy, lightheaded, near syncope). She was given IV TXA and bleeding had slowed, but she was still symptomatic, so she was admitted for observation due to near syncope and plan to give IVF fluids and transfusion if necessary. Date of Admission 08/04/2021 Date of Discharge 08/05/2021 Time Seen by Provider: 17:30 Allergies and Home Medications Allergies Coded Allergies: latex (Verified Allergy, Unknown, 10/02/10) Patient Home Medication List Home Medication List Reviewed: Yes Cetirizine HCl (Zyrtec) 10 Mg Capsule, 10 MG PO DAILY, (Reported) Entered as Reported by: СЕРГЕЙ JUNIOR on 03/02/19 1010 Last Action: Reviewed Ferrous Sulfate (Feosol) 325 Mg Tablet, 325 MG PO DAILY, (Reported) Entered as Reported by: ISIDRA JEAN BAPTISTE on 04/30/21 1432 Last Action: Reviewed Levalbuterol Tartrate (Xopenex Hfa) 15 Gm Hfa.aer.ad, 15 GM INH for CONGESTION, (Reported) Entered as Reported by: СЕРГЕЙ JUNIOR on 03/02/19 1013 Last Action: Reviewed Medroxyprogesterone Acetate (Medroxyprogesterone Acetate) 10 Mg Tablet, 10 MG PO TID Prescribed by: BROOKE FULLER on 08/05/21 0734 Vit/Iron Fumarate/FA ( Tablet) 1 Each Tablet, 1 EACH PO DAILY, (Reported) Entered as Reported by: ISIDRA JEAN BAPTISTE on 04/30/21 143 Last Action: Reviewed Discontinued Medications Acetaminophen (Acetaminophen) 500 Mg Tablet, 1,000 MG PO Q8HR Discontinued Reason: No Longer Taking Prescribed by: BROOKE FULLER on 06/27/21741 Last Action: Discontinued Acetaminophen (Tylenol Extra Strength) 500 Mg Powd.pack, 1,000 MG PO every 8 hours Discontinued Reason: No Longer Taking Prescribed by: Alex Orona on 06/27/21921 Last Action: Discontinued Docusate Sodium (Docusate Sodium) 100 Mg Capsule, 100 MG PO BID Discontinued Reason: No Longer Taking Prescribed by: BROOKE FULLER on 06/27/21741 Last Action: Discontinued Ibuprofen (Ibu) 600 Mg Tablet, 600 MG PO Q6HR Discontinued Reason: No Longer Taking Prescribed by: BROOKE FULLER on 06/27/21741 Last Action: Discontinued Oxycodone HCl (Oxycodone HCl) 5 Mg Capsule, 5 MG PO every 4 hours PRN PRN for PAIN-SEVERE (8-10) Discontinued Reason: No Longer Taking Prescribed by: Alex Orona on 06/27/21922 Last Action: Discontinued Vitamin D (Vitamin D3) 10 Mcg Tablet, 400 MCG PO, (Reported) Discontinued Reason: No Longer Taking Entered as Reported by: WES HERRERA on 03/05/20 0758 Last Action: Discontinued Past Sxcbvoq-Zicule-Qfjplm Hx Patient Social History Marrital Status: single Employed/Student: employed Smoking Status: Never a Smoker Recent Hopitalizations: Yes (6 weeks ago for CS) Surgeries Yes Section, Gallbladder Reproductive System : No Family Medical History Family Hx: Family history: Cardiovascular disease 19 FATHER Family history: Coronary thrombosis 19 FATHER Family history: Diabetes mellitus G8 SISTER (HX OF GESTATIONAL DIABETES ) History of - anemia 19 MOTHER History of - disorder 19 MOTHER (FIBROMYALGIA) Hypercholesterolemia 19 FATHER 19 MOTHER No Family History of: Family history: Allergy Review of Systems Constitutional: other (dizziness and lightheadedness on admission) Respiratory: no symptoms reported Cardiovascular: no symptoms reported Physical Exam General Appearance: Other (pale) Short Stay Diagnosis Discharge Diagnosis-Short Stay Admission Diagnosis: vaginal hemorrhage abnormal uterine bleeding near syncope Final Discharge Diagnosis: vaginal hemorrhage abnormal uterine bleeding near syncope Conclusion Conclusion/Plan Patient was admitted for observation. She was given IV TXA and then started on oral medroxyprogesterone to stop bleeding. She was given IV fluids. Repeat GBS was 10.6 this morning. She feels much better and color has improved. No transfusion was necessary. She continues to take iron orally and PNV. She will be discharged to home. She is in stable condition. will continue oral medroxyprogesterone q 8 hrs for 48 more hours and then start OCPs. Will repeat Hgb in 4-6 weeks. Supervisory-Addendum Brief Verification & Attestation Participated in pt care: history, physical Personally performed: supervision of care Care discussed with: Medical Student Procedures: n/a I have personally seen and examined this patient along with the student and agree with assessment and plan. JOSIAH GAUTHIER MED STUDSTACEY Aug 05, 2021 07:11 BROOKE FULLER DO Aug 06, 2021 08:59
[2021-08-05] MEDS ORDERED: MEDR10TA9 PO (07:34)
[2021-08-05] MEDS: medroxyPROGESTERone 10 MG (PROVERA) TAB PO SCH (07:35)
--- NOTE | 2021-08-05 07:36 | Discharge Inst-Women's Service ---
Discharge Inst-Women's Serv Depart Medication/Instructions New, Converted or Re-Newed RX: Transmitted to Pharmacy Instructions continue progesterone the rest of today (medroxyprogesterone/provera) and then start OCPs may return to work tomorrow continue iron and PNV Final Diagnosis vaginal hemorrhage abnormal uterine bleeding anemia Problems Reviewed?: Yes Consults/Follow Up Additional Follow Up: Yes (4-6 weeks repeat CBC) Activity Activity: Activity as Tolerated Driving Instructions: You May Drive NO SMOKING: NO SMOKING Nothing Inside Vagina: No Douching, No [place], No Tampons Diet Discharge Diet: No Restrictions Symptoms to Report to : Swelling Increased, Bleeding Excessive, Pain Increased, Fever Over 101 Degrees F, Vaginal Bleeding Increase, Cramps in Feet or Legs, Vaginal Discharge Foul For Any Problems or Questions: Contact Your Physician ABBEE FULLER DO Aug 05, 2021 07:36
[2021-08-05 07:42] VITALS: BP 110/71
== END 2021-08-05 07:33 | disposition home or self-care (01) ==
LOC: EDUNIT# 13:14 → ER 13:16 → UNDOADMOB 14:45 → LDRP 14:45 → UNDODISOB 08-05 08:20
PROVIDERS: ADMIT Obstetrics & Gynecology; ATTEND Obstetrics & Gynecology
DX: N93.9 Abnormal uterine and vaginal bleeding, unspecified (principal); R55 Syncope and collapse; D50.9 Iron deficiency anemia, unspecified
CPT/HCPCS: 80048; 80053; 81000; 84703; 85025 ×2; 86850; 86900; 86901; 96361 ×2; 99284; G0378; 36415

== ENCOUNTER 2022-10-16 18:01 | Emergency (ER) | payer BC, OTHER ==
[~2022-10-16] VITALS: Ht 167.7 cm; Wt 59.0 kg
[~2022-10-16 18:01] MED LIST changes: +MEDR10TA9 PO
--- NOTE | 2022-10-16 18:37 | ED Headache ---
General Chief Complaint: Head/Cervical Problems Stated Complaint: HEADACHE|MIGRAINE Nursing Triage Note: PT AMBULATE TO ROOM 08 WITHOUT DIFFICULTY WITH C/O MIGRAINE X20 MINUTES. PT REPORTS TAKING ADVIL WITH TYLENOL QUANTITATIVE CONSULTANT. PT REPORTS SHE JUST FINISHED ABX FOR SINUS INFECTION ON WEDNESDAY. PT REPORTS VISION CHANGES AND WEAKNESS. Source: patient Exam Limitations: no limitations History of Present Illness Date Seen by Provider: October 16, 2022 Time Seen by Provider: 18:28 Initial Comments This 37-year-old woman presents to the emergency room with severe headache that started within the past few hours. She has visual aura and the right side of her vision described as the visual disturbance that occurs after a camera flash. She has nausea without vomiting. She has history of migraines but states this is more severe than any migraine she has had in the past. She is very light sensitive. Any movement causes nausea. She has had significant problems with asthma and allergies this spring. She has had chronic sinus problems and has been on 2 rounds of antibiotics recently. Allergies and Home Medications Allergies Coded Allergies: latex (Verified Allergy, Unknown, 10/02/10) Patient Home Medication List Home Medication List Reviewed: Yes Amoxicillin (Amoxicillin) 500 Mg Capsule, 1,000 MG PO TID Prescribed by: MICHAEL MONTERO on 10/16/222104 Cetirizine HCl (Zyrtec) 10 Mg Capsule, 10 MG PO DAILY, (Reported) Entered as Reported by: СЕРГЕЙ JUNIOR on 03/02/19 1010 Ferrous Sulfate (Feosol) 325 Mg Tablet, 325 MG PO DAILY, (Reported) Entered as Reported by: ISIDRA JEAN BAPTISTE on 04/30/21 1432 Levalbuterol Tartrate (Xopenex Hfa) 15 Gm Hfa.aer.ad, 15 GM INH for CONGESTION, (Reported) Entered as Reported by: СЕРГЕЙ JUNIOR on 03/02/19 1013 Medroxyprogesterone Acetate (Medroxyprogesterone Acetate) 10 Mg Tablet, 10 MG PO TID Prescribed by: ABEBE FULLER on 08/05/21 0734 Ondansetron (Ondansetron Odt) 4 Mg Tab.rapdis, 4 MG SL Q4H PRN for NAUSEA/VO MITING Prescribed by: MICHAEL MONTERO on 10/16/222104 Vit/Iron Fumarate/FA ( Tablet) 1 Each Tablet, 1 EACH PO DAILY, (Reported) Entered as Reported by: ISIDRA JEAN BAPTISTE on 04/30/21 6712 Review of Systems Review of Systems Constitutional: no symptoms reported Eyes: See HPI Ears, Nose, Mouth, Throat: see HPI Respiratory: no symptoms reported Cardiovascular: no symptoms reported Gastrointestinal: see HPI Genitourinary: no symptoms reported : No Musculoskeletal: no symptoms reported Skin: no symptoms reported Psychiatric/Neurological: See HPI Past Toaeomu-Hdpbpr-Xvmrzq Hx Patient Social History Tobacco Use?: No Smoking Status: Never a Smoker Smokeless Tobacco Frequency: Never a User Use of E-Cig and/or Vaping dev: No Use of E-Cig and/or Vaping Tra: Never a User Substance use?: No Alcohol Use?: Yes Alcohol Frequency: Once in a while Pt feels they are or have been: No Immunizations Up To Date Tetanus Booster (TDap): Less than 5yrs PED Vaccines UTD: Yes First/Initial COVID19 Vaccinat: 05/15/21 Second COVID19 Vaccination Christiano: 06/03/20 Third COVID19 Vaccination Date: february 10, 2021 Seasonal Allergies Seasonal Allergies: Yes Past Medical History Surgeries: Yes (sinus surgery) Section, Gallbladder Respiratory: Yes Asthma Currently Using CPAP: No Currently Using BIPAP: No Cardiac: No Neurological: Yes Headaches /Migraines : No Reproductive Disorders: No Female Reproductive Disorders: Denies Sexually Transmitted Disease: No HIV/AIDS: No Genitourinary: No Gastrointestinal: Yes (elevate liver enzmes) Gall Bladder Disease Musculoskeletal: Yes Scoliosis Endocrine: No HEENT: Yes (chronic sinusitis) Loss of Vision: Denies Hearing Impairment: Denies Cancer: No Did You Recieve Any Treatments: No Psychosocial: No Integumentary: No Blood Disorders: No Adverse Reaction/Blood Tranf: No (had transfusion after c/s ) Family Medical History Family history: Cardiovascular disease 19 FATHER Family history: Coronary thrombosis 19 FATHER Family history: Diabetes mellitus G8 SISTER (HX OF GESTATIONAL DIABETES ) History of - anemia 19 MOTHER History of - disorder 19 MOTHER (FIBROMYALGIA) Hypercholesterolemia 19 FATHER 19 MOTHER No Family History of: Family history: Allergy Physical Exam Vital Signs Vital Signs - First Documented 10/16/22 10/16/22 18:05 21:12 Temp 36.7 Pulse 91 Resp 17 B/P (MAP) 156/105 (122) Pulse Ox 98 O2 Delivery Room Air Capillary Refill : Less Than 3 Seconds Height, Weight, BMI Height: 5'2.00" Weight: 140lbs. 0.0oz. 63.187569uc; 20.00 BMI Method:Stated General Appearance: WD/WN, moderate distress HEENT: PERRL/EOMI, normal ENT inspection, TMs normal, pharynx normal Neck: normal inspection Cardiovascular: regular rate, rhythm, no edema, no murmur Respiratory: lungs clear, normal breath sounds, no respiratory distress Extremities: normal inspection Psychiatric: alert, oriented x 3 Crainal Nerves: normal hearing, normal speech Motor/Sensory: no motor deficit Skin: normal color, warm/dry Progress/Results/Core Measures Results/Orders Lab Results Laboratory Tests Test 10/16/22 19:00 Range/Units White Blood Count 6.8 4.3-11.0 10^3/uL Red Blood Count 4.27 3.80-5.11 10^6/uL Hemoglobin 13.0 11.5-16.0 g/dL Hematocrit 39 35-52 % Mean Corpuscular Volume 91 80-99 fL Mean Corpuscular Hemoglobin 30 25-34 pg Mean Corpuscular Hemoglobin Concent 33 32-36 g/dL Red Cell Distribution Width 13.0 10.0-14.5 % Platelet Count 280 130-400 10^3/uL Mean Platelet Volume 10.0 9.0-12.2 fL Immature Granulocyte % (Auto) 0 % Neutrophils (%) (Auto) 52 42-75 % Lymphocytes (%) (Auto) 33 12-44 % Monocytes (%) (Auto) 9 0-12 % Eosinophils (%) (Auto) 4 0-10 % Basophils (%) (Auto) 1 0-10 % Neutrophils # (Auto) 3.6 1.8-7.8 10^3/uL Lymphocytes # (Auto) 2.3 1.0-4.0 10^3/uL Monocytes # (Auto) 0.6 0.0-1.0 10^3/uL Eosinophils # (Auto) 0.3 0.0-0.3 10^3/uL Basophils # (Auto) 0.0 0.0-0.1 10^3/uL Immature Granulocyte # (Auto) 0.0 0.0-0.1 10^3/uL Sodium Level 138 135-145 MMOL/L Potassium Level 3.9 3.6-5.0 MMOL/L Chloride Level 107 98-107 MMOL/L Carbon Dioxide Level 21 21-32 MMOL/L Anion Gap 10 5-14 MMOL/L Blood Urea Nitrogen 13 7-18 MG/DL Creatinine 0.87 0.60-1.30 MG/DL Estimat Glomerular Filtration Rate 88 BUN/Creatinine Ratio 15 Glucose Level 94 70-105 MG/DL Calcium Level 9.7 8.5-10.1 MG/DL Magnesium Level 1.8 1.6-2.4 MG/DL Serum Test, Qualitative NEGATIVE NEGATIVE My Orders Orders - MICHAEL ALFERD MD Basic Metabolic Panel (10/16/22 18:37) Cbc With Automated Diff (10/16/22 18:37) Hcg,Qualitative Serum (10/16/22 18:37) Magnesium (10/16/22 18:37) Ed Iv/Invasive Line Start (10/16/22 18:37) Lactated Ringers (Lr 1000 Ml Iv Solution (10/16/22 18:45) Ketorolac Injection (Toradol Injection) (10/16/22 18:45) Promethazine Injection (Phenergan Injec (10/16/22 18:45) Diphenhydramine Injection (Benadryl Inje (10/16/22 18:45) Ct Head Wo (10/16/22 19:30) Ceftriaxone Pre-Mix (Rocephin Pre-Mix) (10/16/22 21:00) Medications Given in ED Current Medications Medications Dose Ordered Sig/Edna Route Start Time Stop Time Status Last Admin Dose Admin Diphenhydramine HCl 25 mg ONCE ONCE IVP 10/16/22 18:45 10/16/22 18:46 DC 10/16/22 18:55 25 MG Ketorolac Tromethamine 15 mg ONCE ONCE IVP 10/16/22 18:45 10/16/22 18:46 DC 10/16/22 18:55 15 MG Lactated Ringer's 1,000 ml @ 0 mls/hr Q0M ONCE IV 10/16/22 18:45 10/16/22 18:46 DC 10/16/22 18:55 999 MLS/HR Promethazine HCl 25 mg ONCE ONCE IVP 10/16/22 18:45 10/16/22 18:46 DC 10/16/22 18:55 25 MG Vital Signs/I&O 10/16/22 10/16/22 18:05 21:12 Temp 36.7 36.5 Pulse 91 64 Resp 17 16 B/P (MAP) 156/105 (122) 121/99 Pulse Ox 98 O2 Delivery Room Air Room Air 10/17/22 00:00 Intake Total 1000 ml Balance 1000 ml Blood Pressure Mean: 122 Progress Progress Note : Progress Note Lazara was treated with IV fluid, Toradol, Phenergan, and Benadryl with only mi nimal relief. She and her parents were concerned that this is not a typical response for her migraines. CT scan was specifically requested. Due to the unusual nature of her headache, this was granted. CT revealed no acute intracranial abnormalities but there was chronic pansinusitis noted. With time, pain eventually did subside to 3/10. She declined treatment with any other pain medication. Dose of Rocephin was given for treatment of the sinusitis followed by high-dose 3 times daily amoxicillin. She was advised to seek follow-up with Dr. Russell. See discharge instructions for further discussion. All labs were reviewed and interpreted by me including CBC, BMP, and serum test. They were unremarkable. Diagnostic Imaging Diagonstic Imaging: CT Plain Films/CT/US/NM/MRI: head Comments NAME: LAZARA DE LA ROSA [facility] REC#: [id number] PT STATUS: DEP ER : 1985 PHYSICIAN: MICHAEL ALFRED MD ADMIT DATE: 10/16/22/ER Signed Date of Exam:10/16/22 CT HEAD WO PROCEDURE: CT head without contrast. TECHNIQUE: Multiple contiguous axial images were obtained through the brain without the use of intravenous contrast. Auto Exposure Controls were utilized during the CT exam to meet ALARA standards for radiation dose reduction. INDICATION: Worst headache of life. COMPARISON: 11/25/2012. CT HEAD: CT images of the head were obtained. FINDINGS: Ventricles and sulci are within normal limits for size. There is no intracranial hemorrhage identified. There is no abnormal mass effect or shift of midline structures. There are surgical findings noted in the medial dolan of maxillary sinuses; however, moderate mural thickening is seen throughout the maxillary sinuses and bilateral ethmoid air cells with extension into the right frontal sinus. IMPRESSION: No acute intracranial abnormality is identified; however, there is rather extensive chronic paranasal sinus disease. Dictated by: Dictated on workstation # [id number] Dict: 10/16/221956 Trans: 10/16/222132 PJE [id number] Interpreted by: LILIAN WALDROP MD Electronically signed by: LILIAN WALDROP MD 10/16/222132 Departure Impression Primary Impression: Migraine Qualified Codes: G43.119 - Migraine with aura, intractable, without status migrainosus Additional Impression: Chronic pansinusitis Disposition: HOME, SELF-CARE Condition: Improved Departure-Patient Inst. Decision time for Depature: 21:01 Referrals: DAVONTE BURGESS DO (PCP/Family) Primary Care Physician Patient Instructions: Chronic sinusitis, Migraines in adults Add. Discharge Instructions: Start taking amoxicillin high-dose 3 times daily until otherwise instructed by Dr. Russell. Please contact Dr. Russell's office on Wednesday to arrange follow-up and receive further instructions. The severity of your migraine was likely triggered by worsening chronic sinusitis. Continue taking Flonase daily and your allergy medications. For pain you may take ibuprofen up to 600 mg every 6 hours and/or Tylenol (acetaminophen) up to 1000 mg every 6 hours as needed. For nausea you may use Zofran (ondansetron) as prescribed and/or the meclizine (Dramamine) that you are accustomed to. When migraines start, try to rest in a quiet, calm, dark environment and remain there until the migraine subsides. Try to rest in such a location tonight and immediately go to bed. Continue to drink plenty of clear liquids to stay well-hydrated. Return to the emergency room if you have worsening conditions despite following these instructions. Also return to the emergency room if you ever have headache that is accompanied by any neurologic deficit such as vision changes different than migraine aura, facial drooping, weakness of an arm or leg, difficulty producing or understanding speech, loss of balance, etc. All discharge instructions reviewed with patient and/or family. Voiced understa nding. Scripts Ondansetron (Ondansetron Odt) 4 Mg Tab.rapdis 4 MG SL Q4H PRN for NAUSEA/VOMITING, #10 TAB Prov: BRUEGGEMANN,MICHAEL T MD 10/16/22 Amoxicillin (Amoxicillin) 500 Mg Capsule 1000 MG PO TID, #84 CAP 0 Refills Prov: MICHAEL ALFRED MD 10/16/22 Copy Copies To 1: TITA RUSSELL MD Copies To 2: DAVONTE BURGESS JOSHUA T MD October 16, 2022 18:37
[2022-10-16] MEDS ORDERED: PROMETHAZINE INJ 25 MG/ML (PHENERGAN) AMP IVP ONE (18:45)
[2022-10-16] MEDS ORDERED: LACTATED RINGERS 1,000 ML IV ONE (18:45)
[2022-10-16] MEDS ORDERED: diphenhydrAMINE 50 MG/ML INJ (BENADRYL) IVP ONE (18:45)
[2022-10-16] MEDS ORDERED: KETOROLAC 30 MG/ML VIAL IVP ONE (18:45)
[2022-10-16 19:11] LABS: BASOPHILS % (AUTO) 1 % (0-10); EOSINOPHILS # (AUTO) 0.3 10^3/uL (0.0-0.3); EOSINOPHILS % (AUTO) 4 % (0-10); HEMATOCRIT 39 % (35-52); LYMPHOCYTES # (AUTO) 2.3 10^3/uL (1.0-4.0); LYMPHOCYTES % (AUTO) 33 % (12-44); MEAN CORPUSCULAR HEMOGLOBIN 30 pg (25-34); MEAN CORPUSCULAR HGB CONC 33 g/dL (32-36); MEAN CORPUSCULAR VOLUME 91 fL (80-99); MONOCYTES # (AUTO) 0.6 10^3/uL (0.0-1.0); MONOCYTES % (AUTO) 9 % (0-12); NEUTROPHILS # (AUTO) 3.6 10^3/uL (1.8-7.8); NEUTROPHILS % (AUTO) 52 % (42-75); PLATELET COUNT 280 10^3/uL (130-400); WHITE BLOOD COUNT 6.8 10^3/uL (4.3-11.0)
[2022-10-16 19:32] LABS: POTASSIUM 3.9 MMOL/L (3.6-5.0)
[2022-10-16 19:33] LABS: CALCIUM 9.7 MG/DL (8.5-10.1)
[2022-10-16 19:37] LABS: CREATININE SERUM 0.87 MG/DL (0.60-1.30)
[2022-10-16 19:39] LABS: MAGNESIUM 1.8 MG/DL (1.6-2.4)
--- NOTE | 2022-10-16 20:02 | Diagnostic Imaging Report ---
PROCEDURE: CT head without contrast. TECHNIQUE: Multiple contiguous axial images were obtained through the brain without the use of intravenous contrast. Auto Exposure Controls were utilized during the CT exam to meet ALARA standards for radiation dose reduction. INDICATION: Worst headache of life. COMPARISON: 11/25/2012. CT HEAD: CT images of the head were obtained. FINDINGS: Ventricles and sulci are within normal limits for size. There is no intracranial hemorrhage identified. There is no abnormal mass effect or shift of midline structures. There are surgical findings noted in the medial dolan of maxillary sinuses; however, moderate mural thickening is seen throughout the maxillary sinuses and bilateral ethmoid air cells with extension into the right frontal sinus. IMPRESSION: No acute intracranial abnormality is identified; however, there is rather extensive chronic paranasal sinus disease. Dictated by: Dictated on workstation # [id number]
[2022-10-16] MEDS ORDERED: cefTRIAXone PRE-MIX 50 ML IV STA (21:00)
[2022-10-16] MEDS ORDERED: ONDA4TAB11 SL (21:05)
[2022-10-16] MEDS ORDERED: AMOX500C2 PO (21:05)
[2022-10-16 21:12] VITALS: BP 121/99
== END 2022-10-16 21:17 | disposition home or self-care (01) ==
LOC: EDUNIT# 18:01 → ER 18:03
DX: G43.109 Migraine with aura, not intractable, without status migrainosus (principal); J32.4 Chronic pansinusitis; Z91.040 Latex allergy status
CPT/HCPCS: 36415; 70450; 80048; 83735; 84703; 85025

== ENCOUNTER → 2022-11-26 | Outpatient (CLI) | payer BC ==
[~2022-11-26] MED LIST changes: +AMOX500C2 PO; +ONDA4TAB11 SL
--- NOTE | 2022-11-26 15:40 | Diagnostic Imaging Report ---
PROCEDURE: Pelvic comp/transvaginal sonogram. TECHNIQUE: Complete transabdominal and transvaginal pelvic ultrasound was performed. In addition, limited pelvic Doppler was performed. INDICATION: Menorrhagia. Uterus measures 7.5 x 4.7 x 6.1 cm. Endometrium is 6 mm in thickness. There is an area of heterogeneity in the mid anterior uterus measuring 2 cm, likely a small fibroid. Right ovary measures 3.8 x 2.0 x 2.3 cm and the left ovary measures 1.4 x 1.0 x 2.0 cm. Both ovaries contain follicles. There is blood flow to both ovaries. No adnexal mass or free fluid is seen. IMPRESSION: 1. Probable small uterine fibroid. The study is otherwise unremarkable. Dictated by: Dictated on workstation # [id number]
== END ==
LOC: RAD 15:15
PROVIDERS: ATTEND Obstetrics & Gynecology
DX: N92.0 Excessive and frequent menstruation with regular cycle (principal)
CPT/HCPCS: 76830; 76856

== ENCOUNTER → 2023-04-01 | Outpatient (CLI) | payer BC ==
[~2023-04-01] VITALS: Ht 157.5 cm; Wt 59.2 kg
[~2023-04-01] MED LIST changes: +AZEL205.10 NS; +DICY-11 PO; -DICY10CA12 PO; +FLUT9.9S NS; +LEVO2.5S7 PO; +LORA-1389 PO; +MOME17SP14 NS
== END ==
LOC: PREOP 05:59
PROVIDERS: ATTEND Otolaryngology Otolaryngology/Facial Plastic Surgery
DX: Z01.89 Encounter for other specified special examinations (principal)

== ENCOUNTER 2023-05-03 05:29 | Outpatient (CLI) | payer BC ==
[~2023-05-03] VITALS: Ht 157.5 cm; Wt 59.2 kg
[2023-05-04] MEDS ORDERED: NORG1TAB14 PO (09:23)
== END 2023-05-04 09:55 | disposition home or self-care (01) ==
LOC: PREOP 05:29
PROVIDERS: ATTEND Obstetrics & Gynecology
DX: Z01.818 Encounter for other preprocedural examination (principal)